=== PATIENT | female | born 1950 | race Caucasian/White ===

== ENCOUNTER 2017-08-31 08:19 | Inpatient (IN) | payer MEDICAID ==
[~2017-08-31] VITALS: Ht 157.5 cm; Wt 86.3 kg
[2017-08-31 08:24] VITALS: Ht 157.5 cm; Wt 86.3 kg
[2017-08-31] MEDS ORDERED: AZITHROMYCIN 500MG/NS (PMX) 250 ML IV STA (08:33)
[2017-08-31] MEDS ORDERED: SODIUM CHLORIDE 0.9% 1L BAG IV* STA (08:33)
[2017-08-31] MEDS ORDERED: CEFTRIAXONE 1 GM/50 ML (PMX) 50 ML IVPB STA (08:33)
[2017-08-31] MEDS ORDERED: ALBUTEROL 0.083% (NEB) 2.5 MG/3 ML AMP HHN STA ×2 (08:33→09:42)
[2017-08-31 08:38] VITALS: TEMP 98.6
[2017-08-31] MEDS ORDERED: IPRATROPIUM (NEB) 0.5 MG/2.5 ML AMP INH ONE (09:00)
[2017-08-31 09:11] LABS: BASOPHIL # 0.1 10^3/ul (0.0-0.1); BASOPHILS % 0.6 % (0.0-2.0); EOSINOPHILS # 0.1 10^3/ul (0.0-0.5); EOSINOPHILS % 0.6 % (0.0-7.0); HEMATOCRIT 35.4 % (37.0-47.0); HEMOGLOBIN 13.3 g/dl (12.0-16.0); LYMPHOCYTES # 2.6 10^3/ul (0.8-2.9); LYMPHOCYTES % 21.1 % (15.0-51.0); MEAN CORPUSCULAR HEMOGLOBIN 35.5 pg (29.0-33.0); MEAN CORPUSCULAR VOLUME 94.4 fl (82.0-101.0); MEAN PLATELET VOLUME 10.4 fl (7.4-10.4); MONOCYTE # 0.7 10^3/ul (0.3-0.9); MONOCYTES % 5.7 % (0.0-11.0); NEUTROPHIL # 8.7 10^3/ul (1.6-7.5); NEUTROPHILS % 71.7 % (39.0-77.0); PLATELET COUNT 275 10^3/UL (140-415); RED BLOOD COUNT 3.75 10^6/ul (4.20-5.40); RED CELL DISTRIBUTION WIDTH 12.3 % (11.5-14.5); WHITE BLOOD COUNT 12.1 10^3/ul (4.8-10.8)
[2017-08-31 09:28] LABS: INR 1.06; PROTIME 13.8 Sec (12.2-14.2); PT RATIO 1.1
[2017-08-31 09:29] LABS: PARTIAL THROMBOPLASTIN TIME 28.6 Sec (25.0-35.0)
--- NOTE | 2017-08-31 09:29 | RADRPT ---
PROCEDURE: XR Chest. CLINICAL INDICATION: Chest pain. TECHNIQUE: AP Portable chest. COMPARISON: No pertinent prior examinations were submitted for comparison. FINDINGS: Left subclavian dual lead pacemaker is seen. The cardiomediastinal silhouette is normal.The aortic arch is calcified. There is bilateral lower lo be subsegmental atelectasis, greater on the right. No pneumothorax is seen. The osseous structures are intact. IMPRESSION: Bilateral lower lobe subsegmental atelectasis, greater on the right. Pneumonia is not excluded. Joi elate clinically. Left-sided dual lead pacemaker. Physician Whitney Date Time Electronically viewed and signed by Physician Whitney on 08/31/2017 09:28 CS/
[2017-08-31 09:31] LABS: ANION GAP 18 (8-16); BLOOD UREA NITROGEN 17 mg/dl (7-20); CALCIUM 9.6 mg/dl (8.4-10.2); CARBON DIOXIDE 25 mmol/L (21-31); CHLORIDE 102 mmol/L (97-110); CREATININE 0.63 mg/dl (0.44-1.00); GLUCOSE 238 mg/dl (70-220); POTASSIUM 4.3 mmol/L (3.5-5.1); SODIUM 141 mmol/L (135-144)
[2017-08-31 09:41] LABS: MEAN CORPUSCULAR HGB CONC 37.6 g/dl (32.0-37.0)
[2017-08-31 09:44] LABS: TROPONIN-I < 0.012 ng/ml (0.00-0.12)
[2017-08-31] MEDS ORDERED: ACETAMINOPHEN 325 MG TAB PO PRN ×2 (10:30→13:00)
[2017-08-31] MEDS ORDERED: ONDANSETRON 4 MG INJ IV PRN ×2 (10:30→13:00)
[2017-08-31] MEDS ORDERED: AMLO-147 PO (10:52)
[2017-08-31] MEDS ORDERED: CLOP75TA27 PO (10:55)
[2017-08-31] MEDS ORDERED: FLUO10CA17 PO (10:55)
[2017-08-31] MEDS ORDERED: GLIP-95 PO (10:55)
[2017-08-31] MEDS ORDERED: ATOR40TA68 PO (10:56)
[2017-08-31] MEDS ORDERED: OMEP20CA16 PO (10:56)
[2017-08-31] MEDS ORDERED: METF500T4 PO (10:56)
[2017-08-31] MEDS ORDERED: morphine 4 MG/ML VIAL IV STA (11:09)
[2017-08-31] MEDS ORDERED: ONDANSETRON 4 MG INJ IV STA (11:09)
--- NOTE | 2017-08-31 11:11 | ERD ---
ER Documentation Chief Complaint Chief Complaint cough/congestion x 6 days HPI Patient is a 66-year-old female who presents with cough. The patient is felt sick and had cough and shortness of breath for the past 6 days. It is worsening. The patient was brought in by ambulance. She was tachycardic. She has had no treatment as of yet. ROS All systems reviewed and are negative except as per history of present illness. Medications Home Meds Reported Medications Metformin Hcl* (Metformin Hcl*) 500 Mg Tablet, 500 MG PO BID WITH MEALS, #90 TAB 08/31/17 Omeprazole* (Omeprazole*) 20 Mg Capsule.dr, 20 MG PO DAILY, #30 CAP 08/31/17 Atorvastatin* (Atorvastatin*) 40 Mg Tablet, 40 MG PO QHS, #30 TAB 08/31/17 Glipizide* (Glipizide*) 10 Mg Tablet, 10 MG PO BID, TAB 08/31/17 Clopidogrel Bisulfate (Clopidogrel) 75 Mg Tablet, 75 MG PO DAILY, #30 TAB 08/31/17 Fluoxetine Hcl* (Fluoxetine Hcl*) 10 Mg Capsule, 10 MG PO DAILY, CAP 08/31/17 Amlodipine Besylate* (Amlodipine Besylate*) 10 Mg Tablet, 10 MG PO DAILY, #30 TAB 08/31/17 Allergies Allergies: Coded Allergies: Unknown: Unable to obtain (Unverified , 09/18/11) PMhx/Soc History of Surgery: Yes (atul) Anesthesia Reaction: No Hx Neurological Disorder: No Hx Respiratory Disorders: No Hx Cardiac Disorders: Yes (HTN) Hx Psychiatric Problems: No Hx Miscellaneous Medical Probl: Yes (DM) Hx Alcohol Use: No Hx Substance Use: No Hx Tobacco Use: No Smoking Status: Never smoker FmHx Family History: No diabetes Physical Exam Vitals Vital Signs Date Time Temp Pulse Resp B/P Pulse Ox O2 Delivery O2 Flow Rate FiO2 08/31/17 10:08 113 18 97 Nasal Cannula 2.0 08/31/17 08:43 2.0 08/31/17 08:43 110 18 97 Nasal Cannula 2.0 08/31/17 08:38 98.6 107 27 145/82 98 Room Air 08/31/17 08:24 98.6 111 27 145/82 98 Physical Exam Const: Moderate distress secondary to shortness of breath Head: Atraumatic Eyes: Normal Conjunctiva ENT: Normal External Ears, Nose and Mouth. Neck: Full range of motion..~ No meningismus. Resp: Tachypnea with rhonchorous breath sounds Cardio: Tachycardic rate without murmur Abd: Soft, non tender, non distended. Normal bowel sounds Skin: No petechiae or rashes Back: No midline or flank tenderness Ext: No cyanosis, or edema Neur: Awake and alert Psych: Normal Mood and Affect Result Diagram: 08/31/17 0908/31/17 0840 Results 24 hrs Laboratory Tests Test 08/31/17 08:40 08/31/17 09:23 08/31/17 11:02 Prothrombin Time 13.8Sec Prothrombin Time Ratio 1.1 INR International Normalized Ratio 1.06 Activated Partial Thromboplast Time 28.6Sec Sodium Level 141mmol/L Potassium Level 4.3mmol/L Chloride Level 102mmol/L Carbon Dioxide Level 25mmol/L Anion Gap 18 Blood Urea Nitrogen 17mg/dl Creatinine 0.63mg/dl Glucose Level 238mg/dl Lactic Acid Level 2.3mmol/L 3.4mmol/L Calcium Level 9.6mg/dl Troponin I < 0.012ng/ml White Blood Count 12.110^3/ul Red Blood Count 3.7510^6/ul Hemoglobin 13.3g/dl Hematocrit 35.4% Mean Corpuscular Volume 94.4fl Mean Corpuscular Hemoglobin 35.5pg Mean Corpuscular Hemoglobin Concent 37.6g/dl Red Cell Distribution Width 12.3% Platelet Count 53399^3/UL Mean Platelet Volume 10.4fl Neutrophils % 71.7% Lymphocytes % 21.1% Monocytes % 5.7% Eosinophils % 0.6% Basophils % 0.6% Nucleated Red Blood Cells % 0.0/100WBC Neutrophils # 8.710^3/ul Lymphocytes # 2.610^3/ul Monocytes # 0.710^3/ul Eosinophils # 0.110^3/ul Basophils # 0.110^3/ul Nucleated Red Blood Cells # 0.010^3/ul Current Medications Medications (Trade) Dose Ordered Sig/Cassandra Route PRN Reason Start Time Stop Time Status Last Admin Dose Admin Sodium Chloride (NS) 2,540 ml BOLUS OVER 2 HOURS STAT IV* 08/31/17 08:33 08/31/17 08:34 DC 08/31/17 08:56 Albuterol (Proventil 0.083% (Neb)) 5 mg ONCE STAT HHN 08/31/17 08:33 08/31/17 08:35 DC 08/31/17 08:42 Ipratropium [place] 0.5 mg 0.5 mg ONCE ONCE INH 08/31/17 09:00 08/31/17 09:01 DC 08/31/17 08:42 Azithromycin 250 ml @ 250 mls/hr ONCE STAT IV 08/31/17 08:33 08/31/17 09:32 DC 08/31/17 09:44 Ceftriaxone Sodium (Rocephin) 50 ml @ 100 mls/hr ONCE STAT IVPB 08/31/17 08:33 08/31/17 09:02 DC 08/31/17 08:54 Albuterol (Proventil 0.083% (Neb)) 5 mg ONCE STAT HHN 08/31/17 09:42 08/31/17 09:43 DC 08/31/17 10:08 Ondansetron HCl (Zofran Inj) 4 mg BRIDGE ORDER PRN IV NAUSEA AND/OR VOMITING 08/31/17 10:30 09/01/17 10:29 Acetaminophen (Tylenol Tab) 650 mg ER BRIDGE PRN PO MILD PAIN/FEVER 08/31/17 10:30 09/01/17 10:29 Morphine Sulfate (morphine) 4 mg ONCE STAT IV 08/31/17 11:09 08/31/17 11:10 DC 08/31/17 11:13 Ondansetron HCl (Zofran Inj) 4 mg ONCE STAT IV 08/31/17 11:09 08/31/17 11:10 DC 08/31/17 11:13 Procedures/MDM EKG read by me: Rate/Rhythm: Paced rhythm at a rate of 111 Intervals: Normal Impression: Pacing with tachycardia but without ischemia Chest x-ray shows pneumonia per radiology. Admit MDM: Patient's infectious symptoms have not stabilized and the patient is at risk of rapid decompensation. The patient will be admitted for careful hydration, antibiotic therapy, and infectious source control. Severe Sepsis criteria: Infectious source: Pneumonia End organ damage indicated by: Lactate greater than 2 Sepsis Management: Time of recognition of sepsis: 8:40 AM Within 3 hours of recognition: Blood cultures x 2 before broad-spectrum antibiotics: Yes 30 ml/kg NS bolus Completed Initial lactate 2.3 Repeat lactate 3.4 Time of recognition of septic shock: No septic shock Septic Shock Assessment: Any lactic acid > 4.0 No Persistent hypotension (SBP < 90 or 40 mmHg drop, MAP < 65) despite 30 mL/kg IV fluid bolus No Volume Re-assessment for Septic Shock (post 30 ml/kg bolus): No septic shock at this time Persistent Hypotension Treatment: Comfort care No Central line Not Required Vasopressor started Not required I considered further perfusion assessment with CVP measurement, SCVO2, bedside ultrasound volume assessment, passive leg raise, trial of further fluid bolus. And proceeded with 30 ml/kg fluid bolus of NSS, broad spectrum antibiotics, and admission. Accepting Care Team Current data and ongoing care discussed. Admitting Physician: Dr. Palomo from the panel team Still Runner(s): None Outstanding Data: Culture results Critical Care: Critical care time 35 minutes excluding all billable procedures Emergent fluid management while maintaining close respiratory support. Provision of immediate and broad-spectrum antibiotic therapy. Simultaneous assessment for possible sources in order to direct targeted therapy. Consideration for invasive and chemical support to prevent cardiopulmonary collapse. Departure Diagnosis: Primary Impression: Severe sepsis Additional Impression: Pneumonia Pneumonia type: due to unspecified organism Laterality: unspecified laterality Lung location: unspecified part of lung Qualified Code: J18.9 - Pneumonia due to infectious organism, unspecified laterality, unspecified part of lung Condition: Serious ANGELIQUE WILL MD Aug 31, 2017 11:11
--- NOTE | 2017-08-31 12:18 | HP ---
Date/Time of Note Date/Time of Note DATE: 08/31/17 TIME: 12:18 Assessment/Plan VTE Prophylaxis VTE Prophylaxis Intervention: LMWH Lines/Catheters IV [facility] [place] Assessment/Plan Chief Complaint/Hosp Course 66-year-old female with a past medical history of diabetes, hypertension, hypercholesteremia, pacemaker placed, presented to the emergency room for evaluation of 9 day duration of cough, subjective fevers and generalized weakness and malaise who was noted to have pneumonia by chest x-ray. 1. Pneumonia, likely community-acquired. -Admit as inpatient. -We will start patient on IV ceftriaxone plus Zithromax along with inhaled nebulizers and cough suppressants. -Follow-up with cultures 2. Sepsis secondary to #1. Treatment as above. 3. Type 2 diabetes. -Obtain A1c. Will place patient on Accu-Cheks/insulin sliding scale/Lantus in- house. 4. Essential hypertension. -Resume home medications. 5. Hypercholesterolemia. -Resume statin. 6. Status post pacemaker. -Obtain a 2D echocardiogram to assess heart function. Prophylaxis: Lovenox/Pepcid. Rest of the management depend on hospital course. Patient was seen in collaboration with Dr. Palomo. Approximately 60 minutes was spent on this history and physical. Problems: HPI/ROS Admit Date/Time Admit Date/Time Hx of Present Illness This is a 66-year-old Maori speaking female who presented to the emergency room for evaluation of productive cough with yellow colored sputum, shortness of breath, subjective fevers and generalized weakness which has been going on since August 19. Patient also has a medical history of type 2 diabetes, hypertension, hypercholesterolemia, and pacemaker implantation 1 year ago. Patient denied any chest pain, palpitation, loss of consciousness, dizziness, edema, nausea, vomiting, abdominal pain, diarrhea, constipation or other constitutional symptoms. She also denied any recent travel or contact with sick people. Initial labs showed elevated WBC 12,100, lactic acid 2.3, and blood sugar 238. EKG with paced rhythm at a rate of 111. Chest x-ray showed possible pneumonia process. Patient was treated with sepsis protocol with IV fluid hydration and broad-spectrum IV antibiotics. Cultures were sent from the emergency room and the patient was admitted. ROS A 12 point review of system was assessed and is negative other than what is mentioned in the HPI. PMH/Family/Social Past Medical History See HPI Past Surgical History See HPI Social History Patient denied any history of alcohol, smoking or illicit drug use. Smoking Status: Never smoker Exam/Review of Systems Vital Signs Vitals Vital Signs Date Time Temp Pulse Resp B/P Pulse Ox O2 Delivery O2 Flow Rate FiO2 08/31/17 10:08 113 18 97 Nasal Cannula 2.0 08/31/17 08:38 98.6 145/82 Exam Exam General: Well developed,adequately built, obese Maori female, not in any acute distress . HEENT: Normocephalic, Atraumatic, No laceration or hematoma; Eyes: PEERL, Conjunctiva clear, Anicteric sclera Neck: Supple without any lymphadenopathy, nontender, no JVD, no carotid bruits, trachea midline, no thyromegaly Cardiac: With left chest wall pacemaker. S1, S2 auscultated, paced rhythm, no mumurs or gallop Pulmonary:Diffuse rhonchi/wheezing bilaterally.Increased work of breathing. GI: Abdomen obese to inspection. Soft, non tender, non- distended, no masses, no rebound tenderness or guarding. Bowel sounds active on all four quadrants Genitourinary: Deferred Extremities: No cyanosis, clubbing, or edema. Pulses [2+] bilaterally. Full ROM on all four extremities. No focal weakness appreciated. Neurologic: Alert to person, place, time, and situation. Affect appropriate, intact sensation. Skin: Clean,dry, and intact. No ecchymosis, no rashes, or lesions Labs Result Diagram: 08/31/17 0923 08/31/17 0840 LINDA SANTIAGO NP Aug 31, 2017 12:18 LINDA SANTIAGO NP Aug 31, 2017 12:18
[2017-08-31] MEDS ORDERED: GLUCOSE GEL 15 GRAM TUBE BUCCAL PRN (13:00)
[2017-08-31] MEDS ORDERED: GUAIFENESIN/DM 5ML CUP PO PRN (13:00)
[2017-08-31] MEDS ORDERED: ALBUTEROL/IPRATROPIUM (NEB) 3 ML AMP HHN PRN (13:00)
[2017-08-31] MEDS ORDERED: GLUCOSE GEL 15 GRAM TUBE PO PRN ×2 (13:00)
[2017-08-31] MEDS ORDERED: NACL 0.9% 3 ML SYG IV SCH (13:00)
[2017-08-31] MEDS ORDERED: GLUCAGON 1 MG INJ IM PRN (13:00)
[2017-08-31] MEDS ORDERED: DEXTROSE 50% 50 ML SYRINGE IV PRN ×2 (13:00)
[2017-08-31] MEDS ORDERED: DOCUSATE SODIUM 100 MG CAP PO PRN (13:00)
[2017-08-31] MEDS: ALBUTEROL/IPRATROPIUM (NEB) 3 ML AMP HHN SCH ×3 (13:00→20:58)
[2017-08-31] MEDS ORDERED: ACETAMINOPHEN 650 MG SUPP PR PRN (13:00)
[2017-08-31 14:53] LABS: CREATINE KINASE 56 IU/L (23-200)
[2017-08-31 15:00] VITALS: BP 137/79; PULSE 88; RESP 20
[2017-08-31 15:07] LABS: CK-MB 0.49 ng/ml (0.0-2.4)
[2017-08-31 15:09] LABS: TROPONIN-I < 0.012 ng/ml (0.00-0.12)
--- NOTE | 2017-08-31 15:50 | RADRPT ---
Echocardiogram Report Patient Name: YANNICK BURNS Gender: Female Date: 1950 Study Date: 31-Aug-2017 Dynamic Etching Processor: Adrian [facility] Location: [facility] Ref. Physician: ILNDA SANTIAGO Quality: Adequate Procedures: Transthoracic echocardiogram with complete 2D, M-Mode, and doppler examination. Indications: Shortness of breath. 2D/M Mode Doppler Measurement Value Normal Ranges Measurement Value Normal Ranges LVIDd 2D 3.5 3.5 - 5.6 cm AV Peak Darell 1.2 m/sec LVIDs 2D 2.3 2.1 - 4.1 cm AV Peak PG 6.0 mmHg FS 2D 35.3 % LVOT Peak Darell 0.6 m/sec LVPWd 2D 0.8 0.6 - 1.1 cm LVOT Peak PG 2.0 mmHg IVSd 2D 1.5 0.6 - 1.1 cm MV E Peak Darell 1.4 m/sec IVS/LVPW 2D 1.8 MV Decel Time 158 msec AoR Diam 2D 2.4 2.0 - 3.7 cm TR Peak Darell 2.9 m/sec LA/Ao 2D 2 0 - 1 TR Peak PG 33.0 mmHg EDV 2D 42.1 cm3 RVSP 41.0 mmHg ESV 2D 11.4 cm3 LA Dimen 2D 3.9 2.3 - 4.0 cm Findings Left Ventricle: Normal left ventricular systolic function. Normal left ventricular cavity size. Sigmoid septum. Ejection fraction is visually estimated at 60 %. Abnormal Diastolic Function. Right Ventricle: Normal right ventricular size. Normal right ventricular systolic function. Linear artifact in right ventricle suggestive of catheter, pacer lead, or ICD lead. Left Atrium: The left atrium is normal in size. Right Atrium: The right atrium is normal in size. Mitral Valve: Mild mitral leaflet calcification. Mild mitral annular calcification. Trace mitral regurgitation. Aortic Valve: Normal appearance of the aortic valve. No significant aortic stenosis or insufficiency. Tricuspid Valve: Normal appearance of the tricuspid valve. Estimated peak PA systolic pressure 41 mmHg. There is mild tricuspid regurgitation. Pulmonic Valve: Pulmonic valve not well visualized. There is trace pulmonic regurgitation. Pericardium: Normal pericardium with no significant pericardial effusion. Aorta: Normal aortic root. IVC: Dilated inferior vena cava with poor inspiratory collapse consistent with elevated right atrial pressures. Conclusions 1.Normal left ventricular systolic function. Normal left ventricular cavity size. Sigmoid septum. Ejection fraction is visually estimated at 60 %. Abnormal Diastolic Function. 2.Normal right ventricular size. Normal right ventricular systolic function. 3.The left atrium is normal in size. 4.The right atrium is normal in size. 5.Estimated peak PA systolic pressure 41 mmHg. There is mild tricuspid regurgitation. 6.No significant aortic stenosis or insufficiency. 7.Trace mitral regurgitation. 8.Normal pericardium with no significant pericardial effusion. Electronically Signed By: Mike Miller 31-Aug-2017 15:50:12 -0800 Patient Name: YANNICK BURNS Study Date: 31-Aug-2017 [id number]
[2017-08-31] MEDS: SOD CHLORIDE 0.9% 1,000 ML IV SCH (16:11)
[2017-08-31] MEDS: morphine 2 MG INJ IV PRN (18:49)
[2017-08-31] MEDS: IBUPROFEN 400 MG TAB PO SCH (18:50)
[2017-08-31 19:30] VITALS: BP 123/60; RESP 18
[2017-08-31] MEDS: INSULIN ASPART [NOVOLOG] 3 ML PEN SC SCH (21:00)
[2017-08-31 21:07] LABS: CREATINE KINASE 71 IU/L (23-200)
[2017-08-31 21:20] LABS: CK-MB 0.58 ng/ml (0.0-2.4); TROPONIN-I < 0.012 ng/ml (0.00-0.12)
[2017-08-31] MEDS: ATORVASTATIN 40 MG TAB PO SCH (21:36)
[2017-08-31] MEDS: BENZONATATE 100 MG CAP PO SCH (21:36)
[2017-08-31] MEDS: FAMOTIDINE 20 MG TAB PO SCH (21:36)
[2017-09-01] MEDS: ALBUTEROL/IPRATROPIUM (NEB) 3 ML AMP HHN SCH ×6 (01:56→20:30)
[2017-09-01] MEDS: ACCU-CHEK XX SCH (02:00)
[2017-09-01 02:22] VITALS: BP 83/51; RESP 20
[2017-09-01 03:46] VITALS: BP 109/61; PULSE 80
[2017-09-01] MEDS: IBUPROFEN 400 MG TAB PO SCH ×5 (06:22→23:56)
[2017-09-01 07:04] LABS: ALBUMIN 3.5 g/dl (3.3-4.9); ALBUMIN/GLOBULIN RATIO 0.97; BILIRUBIN,INDIRECT 0.4 mg/dl (0-1.1); BILIRUBIN,TOTAL 0.4 mg/dl (0.2-1.3); CALCIUM 8.7 mg/dl (8.4-10.2); CHOL/HDL RATIO 4.1 RATIO; CREATININE 0.63 mg/dl (0.44-1.00); MAGNESIUM 1.9 mg/dl (1.7-2.5); POTASSIUM 4.7 mmol/L (3.5-5.1); TOTAL PROTEIN 7.1 g/dl (6.1-8.1)
[2017-09-01 07:30] VITALS: BP 96/51; RESP 18
[2017-09-01 07:31] LABS: BASOPHIL # 0.1 10^3/ul (0.0-0.1); BASOPHILS % 0.6 % (0.0-2.0); EOSINOPHILS # 0.1 10^3/ul (0.0-0.5); EOSINOPHILS % 1.1 % (0.0-7.0); HEMATOCRIT 32.5 % (37.0-47.0); HEMOGLOBIN 10.8 g/dl (12.0-16.0); LYMPHOCYTES # 3.1 10^3/ul (0.8-2.9); LYMPHOCYTES % 32.7 % (15.0-51.0); MEAN CORPUSCULAR HEMOGLOBIN 32.5 pg (29.0-33.0); MEAN CORPUSCULAR HGB CONC 33.2 g/dl (32.0-37.0); MEAN CORPUSCULAR VOLUME 97.9 fl (82.0-101.0); MEAN PLATELET VOLUME 10.2 fl (7.4-10.4); MONOCYTE # 0.8 10^3/ul (0.3-0.9); MONOCYTES % 8.9 % (0.0-11.0); NEUTROPHIL # 5.3 10^3/ul (1.6-7.5); NEUTROPHILS % 56.4 % (39.0-77.0); PLATELET COUNT 235 10^3/UL (140-415); RED BLOOD COUNT 3.32 10^6/ul (4.20-5.40); RED CELL DISTRIBUTION WIDTH 12.8 % (11.5-14.5); WHITE BLOOD COUNT 9.3 10^3/ul (4.8-10.8)
[2017-09-01 07:56] LABS: THYROID STIMULATING HORMONE 1.49 MIU/L (0.465-4.680)
[2017-09-01] MEDS: CEFTRIAXONE 1 GM/50 ML (PMX) 50 ML IVPB SCH (08:13)
[2017-09-01] MEDS: BENZONATATE 100 MG CAP PO SCH ×3 (08:15→20:21)
[2017-09-01] MEDS: CLOPIDOGREL 75 MG TAB PO SCH (08:16)
[2017-09-01] MEDS: AMLODIPINE 10 MG TAB PO SCH ×2 (08:17→08:28)
[2017-09-01] MEDS: FLUOXETINE 10 MG CAP PO SCH (08:17)
[2017-09-01] MEDS: FAMOTIDINE 20 MG TAB PO SCH ×2 (08:17→20:21)
[2017-09-01] MEDS: INSULIN ASPART [NOVOLOG] 3 ML PEN SC SCH ×4 (08:21→21:00)
[2017-09-01] MEDS: ENOXAPARIN 40 MG/0.4 ML SYG SC SCH (08:21)
[2017-09-01] MEDS: INSULIN GLARGINE [LANtus] 3 ML PEN SC SCH (08:22)
[2017-09-01] MEDS: AZITHROMYCIN 500MG/NS (PMX) 250 ML IVPB SCH (10:10)
[2017-09-01] MEDS: SOD CHLORIDE 0.9% 1,000 ML IV SCH ×2 (11:00→18:06)
--- NOTE | 2017-09-01 11:19 | PN ---
Date/Time of Note Date/Time of Note DATE: 09/01/17 TIME: 11:16 Assessment/Plan VTE Prophylaxis VTE Prophylaxis Intervention: LMWH Lines/Catheters IV [facility]ter [facility] (from [facility]): Peripheral IV Urinary Cath still in place: No Assessment/Plan Chief Complaint/Hosp Course 66-year-old female with a past medical history of diabetes, hypertension, hypercholesteremia, pacemaker placed, presented to the emergency room for evaluation of 9 day duration of cough, subjective fevers and generalized weakness and malaise who was noted to have pneumonia by chest x-ray. 1. Pneumonia, likely community-acquired. Patient still with wheezing. -We will give 1 dose of Solu-Medrol. Will obtain CT chest. -Continue IV ceftriaxone plus Zithromax along with inhaled nebulizers and cough suppressants. -Follow-up with cultures 2. Sepsis secondary to #1. Improving. 3. Type 2 diabetes. A1c 6.8. -Continue with Accu-Cheks/insulin sliding scale/Lantus in-house. 4. Essential hypertension. -Continue home medications. 5. Hypercholesterolemia. -Continue statin. 6. Status post pacemaker. -Echocardiogram with preserved ejection fraction. 7. Mild pulmonary hypertension. Will monitor. Prophylaxis: Lovenox/Pepcid. Patient was seen in collaboration with Dr. Palomo. Problems: Subjective 24 Hr Interval Summary Free Text/Dictation Patient with continued ongoing cough. She was not given any PRN cough suppressants that was ordered. She is also having wheezing. But her work of breathing has improved from before. Exam/Review of Systems Vital Signs Vitals Vital Signs Date Time Temp Pulse Resp B/P Pulse Ox O2 Delivery O2 Flow Rate FiO2 09/01/17 09:12 100 20 96 Nasal Cannula 2.0 28 09/01/17 07:30 97.6 96/51 Intake and Output 08/31/17 08/31/17 09/01/17 15:00 23:00 07:00 Intake Total 240 ml 1150 ml Output Total 300 ml Balance 240 ml 850 ml Exam General: Well developed,adequately built, obese Amharic female, not in any acute distress . HEENT: Normocephalic, Atraumatic, No laceration or hematoma; Eyes: PEERL, Conjunctiva clear, Anicteric sclera Neck: Supple without any lymphadenopathy, nontender, no JVD, no carotid bruits, trachea midline, no thyromegaly Cardiac: With left chest wall pacemaker. S1, S2 auscultated, paced rhythm, no mumurs or gallop Pulmonary: With rhonchi/wheezing bilaterally. Normal respiratory effort. GI: Abdomen obese to inspection. Soft, non tender, non- distended, no masses, no rebound tenderness or guarding. Bowel sounds active on all four quadrants Genitourinary: Deferred Extremities: No cyanosis, clubbing, or edema. Pulses [2+] bilaterally. Full ROM on all four extremities. No focal weakness appreciated. Neurologic: Alert to person, place, time, and situation. Affect appropriate, intact sensation. Skin: Clean,dry, and intact. No ecchymosis, no rashes, or lesions Results Result Diagram: 09/01/17 0650 09/01/17 0543 Results 24 hrs Laboratory Tests Test 08/31/17 14:20 08/31/17 20:37 08/31/17 21:33 09/01/17 05:43 Lactic Acid Level 1.9 Creatine Kinase 56 71 Creatine Kinase Index 0.9 0.8 Creatinine Kinase MB (Mass) 0.49 0.58 Troponin I < 0.012 < 0.012 B-Type Natriuretic Peptide 1330 H Bedside Glucose 164 Sodium Level 143 Potassium Level 4.7 Chloride Level 106 Carbon Dioxide Level 29 Anion Gap 13 Blood Urea Nitrogen 18 Creatinine 0.63 Glucose Level 170 Hemoglobin A1c 6.8 H Calcium Level 8.7 Phosphorus Level 4.0 Magnesium Level 1.9 Total Bilirubin 0.4 Direct Bilirubin 0.00 Indirect Bilirubin 0.4 Aspartate Amino Transf (AST/SGOT) 22 Alanine Aminotransferase (ALT/SGPT) 29 Alkaline Phosphatase 58 Total Protein 7.1 Albumin 3.5 Globulin 3.60 H Albumin/Globulin Ratio 0.97 Triglycerides Level 110 Cholesterol Level 136 LDL Cholesterol, Calculated 81 HDL Cholesterol 33 L Cholesterol/HDL Ratio 4.1 Thyroid Stimulating Hormone (TSH) 1.490 Test 09/01/17 06:50 09/01/17 07:51 White Blood Count 9.3 # Red Blood Count 3.32 L Hemoglobin 10.8 L Hematocrit 32.5 L Mean Corpuscular Volume 97.9 Mean Corpuscular Hemoglobin 32.5 Mean Corpuscular Hemoglobin Concent 33.2 Red Cell Distribution Width 12.8 Platelet Count 235 Mean Platelet Volume 10.2 Neutrophils % 56.4 Lymphocytes % 32.7 Monocytes % 8.9 Eosinophils % 1.1 Basophils % 0.6 Nucleated Red Blood Cells % 0.0 Neutrophils # 5.3 Lymphocytes # 3.1 H Monocytes # 0.8 Eosinophils # 0.1 Basophils # 0.1 Nucleated Red Blood Cells # 0.0 Bedside Glucose 187 Medications Medications Current Medications Ceftriaxone Sodium 50 ml @ 100 mls/hr Q24H IVPB Last administered on 08:13; Admin Dose 100 MLS/HR; Start 09/01/17 at 08:00 Azithromycin (Zithromax 500mg/ NS (Pmx)) 250 ml @ 250 mls/hr Q24H IVPB Last administered on 09/01/17 10:10; Admin Dose 250 MLS/HR; Start 09/01/17 at 09: 00 Ondansetron HCl (Zofran Inj) 4 mg Q6H PRN IV NAUSEA AND/OR VOMITING; Start at 13:00 Acetaminophen (Tylenol Tab) 650 mg Q6H PRN PO PAIN LEVEL 1-3 OR FEVER; Start 08/31/17 at 13:00 Acetaminophen (Tylenol Supp) 650 mg Q6H PRN ME PAIN LEVEL 1-3 OR FEVER; Start 08/31/17 at 13:00 Morphine Sulfate (morphine) 2 mg Q4H PRN IV SEVERE PAIN LEVEL 7-10 Last administered on 08/31/17 18:49; Admin Dose 2 MG; Start 08/31/17 at 13:00 Docusate Sodium (Colace) 100 mg Q12H PRN PO CONSTIPATION; Start 08/31/17 at 13 :00 Famotidine (Pepcid) 20 mg Q12 PO Last administered on 09/01/17 08:17; Admin Dose 20 MG; Start 08/31/17 at 21:00 Enoxaparin Sodium (Lovenox) 40 mg DAILY SC Last administered on 09/01/17 08: 21; Admin Dose 40 MG; Start 09/01/17 at 09:00 Diagnostic Test (Pha) (Accu-Chek) 1 ea 02 XX ; Start 09/01/17 at 02:00 Insulin Glargine (Lantus) 12 unit DAILY@08 SC Last administered on 09/01/17 08:22; Admin Dose 12 UNIT; Start 09/01/17 at 08:00 Amlodipine Besylate (Norvasc) 10 mg DAILY PO Last administered on 09/01/17 08 :28; Admin Dose 10 MG; Start 09/01/17 at 09:00 Atorvastatin Calcium (Lipitor) 40 mg QHS PO Last administered on 08/31/17 21: 36; Admin Dose 40 MG; Start 08/31/17 at 21:00 Clopidogrel Bisulfate (plaVIX) 75 mg DAILY PO Last administered on 09/01/17 08:16; Admin Dose 75 MG; Start 09/01/17 at 09:00 Fluoxetine HCl (Prozac) 10 mg DAILY PO Last administered on 09/01/17 08:17; Admin Dose 10 MG; Start 09/01/17 at 09:00 Ibuprofen (Motrin) 400 mg Q6 PO Last administered on 09/01/17 06:22; Admin Dose 400 MG; Start 08/31/17 at 13:00 Benzonatate (Tessalon) 100 mg TID PO Last administered on 09/01/17 08:15; Admin Dose 100 MG; Start 08/31/17 at 13:00 Miscellaneous Information 1 ea NOTE XX ; Start 08/31/17 at 13:00 Glucose (Glutose) 15 gm Q15M PRN PO DECREASED GLUCOSE; Start 08/31/17 at 13:00 Glucose (Glutose) 22.5 gm Q15M PRN PO DECREASED GLUCOSE; Start 08/31/17 at 13: 00 Dextrose (D50w Syringe) 25 ml Q15M PRN IV DECREASED GLUCOSE; Start 08/31/17 at 13:00 Dextrose (D50w Syringe) 50 ml Q15M PRN IV DECREASED GLUCOSE; Start 08/31/17 at 13:00 Glucagon (Glucagen) 1 mg Q15M PRN IM DECREASED GLUCOSE; Start 08/31/17 at 13: 00 Glucose 15 gm 15 gm Q15M PRN BUCCAL DECREASED GLUCOSE; Start 08/31/17 at 13:00 Sodium Chloride (NS) 1,000 ml @ 50 mls/hr Q20H IV Last administered on 16:11; Admin Dose 50 MLS/HR; Start 08/31/17 at 15:00 Guaifenesin/ Dextromethorphan (Robitussin Dm Liquid Cup) 10 ml Q6H PO ; Start 09/01/17 at 13:00; Status UNV Methylprednisolone Sodium Succinate (Solu-Medrol) 125 mg ONCE ONCE IM ; Start 09/01/17 at 11:30; Stop 09/01/17 at 11:31; Status UNV LINDA SANTIAGO NP Sep 01, 2017 11:19
[2017-09-01] MEDS ORDERED: METHYLPREDNISOLONE 125 MG INJ IM ONE (11:30)
[2017-09-01] MEDS: GUAIFENESIN/DM 5ML CUP PO SCH ×2 (12:07→18:03)
[2017-09-01] MEDS ORDERED: INSULIN ASPART [NOVOLOG] 3 ML PEN SC ONE ×2 (12:30→22:00)
[2017-09-01] MEDS ORDERED: GUAIFENESIN/DM 5ML CUP PO SCH (13:00)
[2017-09-01 13:23] VITALS: BP 179/86; PULSE 80; RESP 16
[2017-09-01 17:34] VITALS: BP 142/69; PULSE 90; RESP 23
[2017-09-01 20:00] VITALS: BP 130/23; RESP 20
[2017-09-01] MEDS: ATORVASTATIN 40 MG TAB PO SCH (20:21)
--- NOTE | 2017-09-01 20:34 | RADRPT ---
PROCEDURE: CT Chest Without Contrast CLINICAL INDICATION: Pneumonia, short of breath TECHNIQUE: Volumetric acquisition of the thorax was performed without the intravenous administrati on of contrast. One or more of the following dose reduction techniques were used: - Automated exposure control. - Adjustment of the mA and/or kV according to patient size. Use of iterative reconstruction technique. Radiation Dose: CTDI = 14.83 mGy; DLP = 488.03 mGy-cm. COMPARISON: None. FINDINGS: A a pacemaker generator is implanted within the left anterior chest wall and dual leads are satisfac torily positioned. Lung french: There is air space opacification involving the right lower lobe superiorly and inferior ly with air bronchograms noted. The bronchi appear patent. Foci of discoid atelectasis are seen in e ach within the right posterior sulcus. Discoid atelectasis is seen in the right middle lobe and with in the left lower lobe. The pleural spaces: No effusion or pneumothorax is identified. Lymph nodes: There is a 3.3 cm in diameter subcarinal mass. There is a 1.2 cm in short diameter prec arinal node. Several nodes are seen in the AP window up to 8 mm in diameter. There are several pretr acheal nodes approximately 6 mm in short diameter. Cardiovascular structures: The heart is not enlarged and there is no pericardial effusion. The aorta is normal in caliber. There is coronary artery calcification and mild atherosclerotic calcification in the aorta. Thyroid: Unremarkable. Superior abdominal structures: No significant abnormality is evident. Osseous structures: Moderate diffuse anterior spurring is seen through the visualized spine. IMPRESSION: 1. Air space consolidation compatible with atelectasis and possibly infiltrate is seen within the r ight lower lobe both superiorly and inferiorly. This extends into the right hilum. Foci of discoid a telectasis are seen within the right middle lobe and the lower lobes. No effusion or pneumothorax is identified. 2. A 3.3 cm in short diameter subcarinal mass is identified, a 1.2 cm precarinal node is evident, s everal pretracheal nodes up to 6 mm in diameter are evident and AP window nodes up to 8 mm in diamet er are noted. There is suspicion of right hilar adenopathy obscured by the pulmonary consolidation. 3. The heart is normal in size with atherosclerotic calcifications seen in the coronary arteries an d aorta. A pacemaker in dual lead appear satisfactorily positioned. 4. Moderate diffuse degenerative spine changes are noted. Findings of a subcarinal mass along with mediastinal adenopathy an air space opacification involving the right lower lobe were telephoned by Min Braxton MD to Dr. Barclay on 09/01/2017 at 2027 helen rs. Physician Jv Date Time Electronically viewed and signed by Teresita Braxton Physician on 09/01/2017 20:34 RH/
[2017-09-02] MEDS: ALBUTEROL/IPRATROPIUM (NEB) 3 ML AMP HHN SCH ×6 (00:33→20:47)
[2017-09-02] MEDS: GUAIFENESIN/DM 5ML CUP PO SCH ×4 (01:10→17:24)
[2017-09-02 02:00] VITALS: BP 126/68; RESP 20
[2017-09-02] MEDS: ACCU-CHEK XX SCH (02:12)
[2017-09-02] MEDS ORDERED: INSULIN ASPART [NOVOLOG] 3 ML PEN SC ONE (02:30)
[2017-09-02] MEDS: IBUPROFEN 400 MG TAB PO SCH ×3 (06:02→17:24)
[2017-09-02 06:36] LABS: CALCIUM 9.4 mg/dl (8.4-10.2); CREATININE 0.55 mg/dl (0.44-1.00)
[2017-09-02] MEDS: SOD CHLORIDE 0.9% 1,000 ML IV SCH ×2 (06:54→18:22)
[2017-09-02 07:34] VITALS: BP 133/75; RESP 18
[2017-09-02 07:48] LABS: BASOPHILS % 0.2 % (0.0-2.0); HEMATOCRIT 32.6 % (37.0-47.0); HEMOGLOBIN 10.7 g/dl (12.0-16.0); LYMPHOCYTES # 1.2 10^3/ul (0.8-2.9); LYMPHOCYTES % 11.7 % (15.0-51.0); MEAN CORPUSCULAR HEMOGLOBIN 31.3 pg (29.0-33.0); MEAN CORPUSCULAR HGB CONC 32.8 g/dl (32.0-37.0); MEAN CORPUSCULAR VOLUME 95.3 fl (82.0-101.0); MEAN PLATELET VOLUME 11.1 fl (7.4-10.4); MONOCYTE # 0.6 10^3/ul (0.3-0.9); MONOCYTES % 5.9 % (0.0-11.0); NEUTROPHIL # 8.2 10^3/ul (1.6-7.5); NEUTROPHILS % 81.5 % (39.0-77.0); PLATELET COUNT 225 10^3/UL (140-415); RED BLOOD COUNT 3.42 10^6/ul (4.20-5.40); RED CELL DISTRIBUTION WIDTH 12.5 % (11.5-14.5)
[2017-09-02] MEDS: INSULIN GLARGINE [LANtus] 3 ML PEN SC SCH (07:54)
[2017-09-02] MEDS: INSULIN ASPART [NOVOLOG] 3 ML PEN SC SCH ×6 (07:54→20:34)
[2017-09-02] MEDS: CEFTRIAXONE 1 GM/50 ML (PMX) 50 ML IVPB SCH (09:06)
[2017-09-02] MEDS: CLOPIDOGREL 75 MG TAB PO SCH (09:10)
[2017-09-02] MEDS: FLUOXETINE 10 MG CAP PO SCH (09:11)
[2017-09-02] MEDS: BENZONATATE 100 MG CAP PO SCH ×3 (09:11→22:45)
[2017-09-02] MEDS: FAMOTIDINE 20 MG TAB PO SCH ×2 (09:11→20:29)
[2017-09-02] MEDS: AMLODIPINE 10 MG TAB PO SCH (09:12)
[2017-09-02] MEDS: ENOXAPARIN 40 MG/0.4 ML SYG SC SCH (09:24)
[2017-09-02] MEDS: AZITHROMYCIN 500MG/NS (PMX) 250 ML IVPB SCH (10:11)
--- NOTE | 2017-09-02 11:31 | PN ---
Date/Time of Note Date/Time of Note DATE: 09/02/17 TIME: 11:24 Assessment/Plan VTE Prophylaxis VTE Prophylaxis Intervention: LMWH Lines/Catheters IV [facility]ter Type (from [facility] Peripheral IV Urinary Cath still in place: No Assessment/Plan Chief Complaint/Hosp Course 66-year-old female with a past medical history of diabetes, hypertension, hypercholesteremia, pacemaker placed, presented to the emergency room for evaluation of 9 day duration of cough, subjective fevers and generalized weakness and malaise who was noted to have pneumonia by chest x-ray. 1. Pneumonia, likely community-acquired. Improving gradually. CT with suspicion of right hilar/Mediastinal adenopathy. -Pulmonary consult for further imaging recs. -Continue IV ceftriaxone plus Zithromax along with inhaled nebulizers and cough suppressants. -F/u sputum CS 2. Sepsis secondary to #1. Resolving. 3. Type 2 diabetes. A1c 6.8. Hyperglycemia with steroids given. -Continue with Accu-Cheks/insulin sliding scale/. Uptitrate insulin Lantus to 15 units and add pre-meal insulin. 4. Essential hypertension. -Continue home medications. 5. Hypercholesterolemia. -Continue statin. 6. Status post pacemaker. -Echocardiogram with preserved ejection fraction. 7. Mild pulmonary hypertension. Will monitor. Prophylaxis: Lovenox/Pepcid. F/u with pulmonary recs on CT findings. Patient was seen in collaboration with Dr. Palomo. Problems: Subjective 24 Hr Interval Summary Free Text/Dictation Today patient with less wheezing and improved work of breathing. Exam/Review of Systems Vital Signs Vitals Vital Signs Date Time Temp Pulse Resp B/P Pulse Ox O2 Delivery O2 Flow Rate FiO2 09/02/17 08:05 3.0 09/02/17 08:03 95 24 95 Nasal Cannula 32 09/02/17 07:34 98.3 133/75 Intake and Output 09/01/17 09/01/17 09/02/17 15:00 23:00 07:00 Intake Total 300 ml 950 ml 600 ml Output Total 150 ml Balance 300 ml 800 ml 600 ml Exam General: Well developed,adequately built, obese [place] female, not in any acute distress . HEENT: Normocephalic, Atraumatic, No laceration or hematoma; Eyes: PEERL, Conjunctiva clear, Anicteric sclera Neck: Supple without any lymphadenopathy, nontender, no JVD, no carotid bruits, trachea midline, no thyromegaly Cardiac: With left chest wall pacemaker. S1, S2 auscultated, paced rhythm, no mumurs or gallop Pulmonary: With rhonchi/wheezing bilaterally-improving. Normal respiratory effort. GI: Abdomen obese to inspection. Soft, non tender, non- distended, no masses, no rebound tenderness or guarding. Bowel sounds active on all four quadrants Genitourinary: Deferred Extremities: No cyanosis, clubbing, or edema. Pulses [2+] bilaterally. Full ROM on all four extremities. No focal weakness appreciated. Neurologic: Alert to person, place, time, and situation. Affect appropriate, intact sensation. Skin: Clean,dry, and intact. No ecchymosis, no rashes, or lesions Results Result Diagram: 09/02/17 0509 09/02/17 0509 Results 24 hrs Laboratory Tests Test 09/01/17 12:05 09/01/17 17:04 09/01/17 21:44 09/02/17 02:11 Bedside Glucose 193 229 H 375 H 343 H Test 09/02/17 05:09 09/02/17 07:50 White Blood Count 10.0 Red Blood Count 3.42 L Hemoglobin 10.7 L Hematocrit 32.6 L Mean Corpuscular Volume 95.3 Mean Corpuscular Hemoglobin 31.3 Mean Corpuscular Hemoglobin Concent 32.8 Red Cell Distribution Width 12.5 Platelet Count 225 Mean Platelet Volume 11.1 H Neutrophils % 81.5 H Lymphocytes % 11.7 L Monocytes % 5.9 Eosinophils % 0.0 Basophils % 0.2 Nucleated Red Blood Cells % 0.0 Neutrophils # 8.2 H Lymphocytes # 1.2 Monocytes # 0.6 Eosinophils # 0.0 Basophils # 0.0 Nucleated Red Blood Cells # 0.0 Sodium Level 139 Potassium Level 5.0 Chloride Level 105 Carbon Dioxide Level 21 Anion Gap 18 H Blood Urea Nitrogen 15 Creatinine 0.55 Glucose Level 328 #H Calcium Level 9.4 Bedside Glucose 273 H Medications Medications Current Medications Ceftriaxone Sodium 50 ml @ 100 mls/hr Q24H IVPB Last administered on t 09:06; Admin Dose 100 MLS/HR; Start 09/01/17 at 08:00 Azithromycin (Zithromax 500mg/ NS (Pmx)) 250 ml @ 250 mls/hr Q24H IVPB Last administered on 09/02/17 10:11; Admin Dose 250 MLS/HR; Start 09/01/17 at 09:00 Ondansetron HCl (Zofran Inj) 4 mg Q6H PRN IV NAUSEA AND/OR VOMITING; Start at 13:00 Acetaminophen (Tylenol Tab) 650 mg Q6H PRN PO PAIN LEVEL 1-3 OR FEVER; Start 08/31/17 at 13:00 Acetaminophen (Tylenol Supp) 650 mg Q6H PRN PA PAIN LEVEL 1-3 OR FEVER; Start 08/31/17 at 13:00 Morphine Sulfate (morphine) 2 mg Q4H PRN IV SEVERE PAIN LEVEL 7-10 Last administered on 08/31/17 18:49; Admin Dose 2 MG; Start 08/31/17 at 13:00 Docusate Sodium (Colace) 100 mg Q12H PRN PO CONSTIPATION; Start 08/31/17 at 13 :00 Famotidine (Pepcid) 20 mg Q12 PO Last administered on 09/02/17 09:11; Admin Dose 20 MG; Start 08/31/17 at 21:00 Enoxaparin Sodium (Lovenox) 40 mg DAILY SC Last administered on 09/02/17 09:24 ; Admin Dose 40 MG; Start 09/01/17 at 09:00 Diagnostic Test (Pha) (Accu-Chek) 1 ea 02 XX Last administered on 09/02/17 02: 12; Admin Dose 1 EA; Start 09/01/17 at 02:00 Insulin Glargine (Lantus) 12 unit DAILY@08 SC Last administered on 09/02/17 07 :54; Admin Dose 12 UNIT; Start 09/01/17 at 08:00 Amlodipine Besylate (Norvasc) 10 mg DAILY PO Last administered on 09/02/17 09: 12; Admin Dose 10 MG; Start 09/01/17 at 09:00 Atorvastatin Calcium (Lipitor) 40 mg QHS PO Last administered on 09/01/17 20: 21; Admin Dose 40 MG; Start 08/31/17 at 21:00 Clopidogrel Bisulfate (plaVIX) 75 mg DAILY PO Last administered on 09/02/17 09 :10; Admin Dose 75 MG; Start 09/01/17 at 09:00 Fluoxetine HCl (Prozac) 10 mg DAILY PO Last administered on 09/02/17 09:11; Admin Dose 10 MG; Start 09/01/17 at 09:00 Ibuprofen (Motrin) 400 mg Q6 PO Last administered on 09/02/17 11:08; Admin Dose 400 MG; Start 08/31/17 at 13:00 Benzonatate (Tessalon) 100 mg TID PO Last administered on 09/02/17 09:11; Admin Dose 100 MG; Start 08/31/17 at 13:00 Miscellaneous Information 1 ea NOTE XX ; Start 08/31/17 at 13:00 Glucose (Glutose) 15 gm Q15M PRN PO DECREASED GLUCOSE; Start 08/31/17 at 13:00 Glucose (Glutose) 22.5 gm Q15M PRN PO DECREASED GLUCOSE; Start 08/31/17 at 13: 00 Dextrose (D50w Syringe) 25 ml Q15M PRN IV DECREASED GLUCOSE; Start 08/31/17 at 13:00 Dextrose (D50w Syringe) 50 ml Q15M PRN IV DECREASED GLUCOSE; Start 08/31/17 at 13:00 Glucagon (Glucagen) 1 mg Q15M PRN IM DECREASED GLUCOSE; Start 08/31/17 at 13: 00 Glucose 15 gm 15 gm Q15M PRN BUCCAL DECREASED GLUCOSE; Start 08/31/17 at 13:00 Sodium Chloride (NS) 1,000 ml @ 50 mls/hr Q20H IV Last administered on 18:06; Admin Dose 50 MLS/HR; Start 08/31/17 at 15:00 Guaifenesin/ Dextromethorphan (Robitussin Dm Liquid Cup) 10 ml Q6H PO Last administered on 09/02/17 06:54; Admin Dose 10 ML; Start 09/01/17 at 13:00 LINDA SANTIAGO NP Sep 02, 2017 11:31
--- NOTE | 2017-09-02 12:32 | CONS ---
Date/Time of Note Date/Time of Note DATE: 09/02/17 TIME: 12:31 Consultation Date/Type/Reason Admit Date/Time Date of Consultation: Sep 02, 2017 Type of Consultation: Pulmonary Hx of Present Illness Pulmonary consultation dictated #[id number] Discontinue Rocephin, start cefepime 1 g every 12 hours. Start Solu-Medrol 40 mg every 8 hours. Patient will need to have a PET scan done on an outpatient basis for further evaluation of subcarinal mass. Social History Smoking Status: Never smoker Exam/Review of Systems Vital Signs Vitals Vital Signs Date Time Temp Pulse Resp B/P Pulse Ox O2 Delivery O2 Flow Rate FiO2 09/02/17 08:05 3.0 09/02/17 08:03 95 24 95 Nasal Cannula 32 09/02/17 07:34 98.3 133/75 Intake and Output 09/01/17 09/01/17 09/02/17 15:00 23:00 07:00 Intake Total 300 ml 950 ml 600 ml Output Total 150 ml Balance 300 ml 800 ml 600 ml Results Result Diagram: 09/02/17 0509 09/02/17 0509 Results 24 hrs Laboratory Tests Test 09/01/17 17:04 09/01/17 21:44 09/02/17 02:11 09/02/17 05:09 Bedside Glucose 229 H 375 H 343 H White Blood Count 10.0 Red Blood Count 3.42 L Hemoglobin 10.7 L Hematocrit 32.6 L Mean Corpuscular Volume 95.3 Mean Corpuscular Hemoglobin 31.3 Mean Corpuscular Hemoglobin Concent 32.8 Red Cell Distribution Width 12.5 Platelet Count 225 Mean Platelet Volume 11.1 H Neutrophils % 81.5 H Lymphocytes % 11.7 L Monocytes % 5.9 Eosinophils % 0.0 Basophils % 0.2 Nucleated Red Blood Cells % 0.0 Neutrophils # 8.2 H Lymphocytes # 1.2 Monocytes # 0.6 Eosinophils # 0.0 Basophils # 0.0 Nucleated Red Blood Cells # 0.0 Sodium Level 139 Potassium Level 5.0 Chloride Level 105 Carbon Dioxide Level 21 Anion Gap 18 H Blood Urea Nitrogen 15 Creatinine 0.55 Glucose Level 328 #H Calcium Level 9.4 Test 09/02/17 07:50 09/02/17 11:58 Bedside Glucose 273 H 217 Medications Medications Current Medications Ceftriaxone Sodium 50 ml @ 100 mls/hr Q24H IVPB Last administered on 09:06; Admin Dose 100 MLS/HR; Start 09/01/17 at 08:00 Azithromycin (Zithromax 500mg/ NS (Pmx)) 250 ml @ 250 mls/hr Q24H IVPB Last administered on 09/02/17 10:11; Admin Dose 250 MLS/HR; Start 09/01/17 at 09:00 Ondansetron HCl (Zofran Inj) 4 mg Q6H PRN IV NAUSEA AND/OR VOMITING; Start at 13:00 Acetaminophen (Tylenol Tab) 650 mg Q6H PRN PO PAIN LEVEL 1-3 OR FEVER; Start 08/31/17 at 13:00 Acetaminophen (Tylenol Supp) 650 mg Q6H PRN [place] PAIN LEVEL 1-3 OR FEVER; Start 08/31/17 at 13:00 Morphine Sulfate (morphine) 2 mg Q4H PRN IV SEVERE PAIN LEVEL 7-10 Last administered on 08/31/17 18:49; Admin Dose 2 MG; Start 08/31/17 at 13:00 Docusate Sodium (Colace) 100 mg Q12H PRN PO CONSTIPATION; Start 08/31/17 at 13 :00 Famotidine (Pepcid) 20 mg Q12 PO Last administered on 09/02/17 09:11; Admin Dose 20 MG; Start 08/31/17 at 21:00 Enoxaparin Sodium (Lovenox) 40 mg DAILY SC Last administered on 09/02/17 09:24 ; Admin Dose 40 MG; Start 09/01/17 at 09:00 Diagnostic Test (Pha) (Accu-Chek) 1 ea 02 XX Last administered on 09/02/17 02: 12; Admin Dose 1 EA; Start 09/01/17 at 02:00 Amlodipine Besylate (Norvasc) 10 mg DAILY PO Last administered on 09/02/17 09: 12; Admin Dose 10 MG; Start 09/01/17 at 09:00 Atorvastatin Calcium (Lipitor) 40 mg QHS PO Last administered on 09/01/17 20: 21; Admin Dose 40 MG; Start 08/31/17 at 21:00 Clopidogrel Bisulfate (plaVIX) 75 mg DAILY PO Last administered on 09/02/17 09 :10; Admin Dose 75 MG; Start 09/01/17 at 09:00 Fluoxetine HCl (Prozac) 10 mg DAILY PO Last administered on 09/02/17 09:11; Admin Dose 10 MG; Start 09/01/17 at 09:00 Ibuprofen (Motrin) 400 mg Q6 PO Last administered on 09/02/17 11:08; Admin Dose 400 MG; Start 08/31/17 at 13:00 Benzonatate (Tessalon) 100 mg TID PO Last administered on 09/02/17 09:11; Admin Dose 100 MG; Start 08/31/17 at 13:00 Miscellaneous Information 1 ea NOTE XX ; Start 08/31/17 at 13:00 Glucose (Glutose) 15 gm Q15M PRN PO DECREASED GLUCOSE; Start 08/31/17 at 13:00 Glucose (Glutose) 22.5 gm Q15M PRN PO DECREASED GLUCOSE; Start 08/31/17 at 13: 00 Dextrose (D50w Syringe) 25 ml Q15M PRN IV DECREASED GLUCOSE; Start 08/31/17 at 13:00 Dextrose (D50w Syringe) 50 ml Q15M PRN IV DECREASED GLUCOSE; Start 08/31/17 at 13:00 Glucagon (Glucagen) 1 mg Q15M PRN IM DECREASED GLUCOSE; Start 08/31/17 at 13: 00 Glucose 15 gm 15 gm Q15M PRN BUCCAL DECREASED GLUCOSE; Start 08/31/17 at 13:00 Sodium Chloride (NS) 1,000 ml @ 50 mls/hr Q20H IV Last administered on 18:06; Admin Dose 50 MLS/HR; Start 08/31/17 at 15:00 Guaifenesin/ Dextromethorphan (Robitussin Dm Liquid Cup) 10 ml Q6H PO Last administered on 09/02/17 12:11; Admin Dose 10 ML; Start 09/01/17 at 13:00 Insulin Glargine (Lantus) 15 unit DAILY@08 SC ; Start 09/03/17 at 08:00 ANGEL LUIS YOU Sep 02, 2017 12:32
--- NOTE | 2017-09-02 12:49 | CONS ---
DATE OF ADMISSION: 08/31/2017 DATE OF CONSULTATION: 09/02/2017 PULMONARY CONSULTATION REASON FOR REFERRAL: Evaluation of pneumonia and subcarinal mass. HISTORY OF PRESENT ILLNESS: Ms. Sarmiento is a very pleasant 66-year-old lady who was admitted to [facility] with a few days' history of increasing coughing, wheezing and sputum production. Upon e valuation, a chest x-ray was done which is showing infiltrate in the right upper lobe area. The [facility] also had a CT scan of the chest done which is showing a 3.6 cm subcarinal mass as well as infil trate in the right upper lobe area. The patient has been started on antibiotics, but according to h er she is still quite symptomatic with shortness of breath, wheezing, cough and chest congestion. A ccording to the patient, she was fine until a week ago when the symptoms started. PAST MEDICAL HISTORY: 1. Type 2 diabetes. 2. History of hypertension. 3. Hyperlipidemia. 4. Cardiac arrhythmia, status post pacemaker. MEDICATIONS: Include: 1. Intravenous Rocephin and Zithromax. 2. Albuterol q. 2 hours p.r.n. 3. Amlodipine 10 mg a day. 4. Atorvastatin 40 mg a day. 5. Plavix 75 mg a day. 6. Lovenox 40 mg a day. 7. Pepcid 20 mg b.i.d. 8. Prozac 10 mg a day. 9. The patient is on cough syrup. 10. Sliding scale insulin as well as Lantus insulin 12 units daily. ALLERGIES: NONE. SOCIAL HISTORY: Never smoked. No history of alcohol or drug abuse. FAMILY HISTORY: Noncontributory. OCCUPATIONAL HISTORY: Noncontributory. REVIEW OF SYSTEMS: Denies any headache, seizures, visual changes, sinus symptoms, postnasal drip, d ysphagia, odynophagia, chest pain. Complains of wheezing, shortness of breath, cough, sputum produc tion. Denies any hemoptysis. Denies any abdominal pain, nausea, vomiting, melena, hematochezia, ed leoncio, orthopnea, PND, weight loss. PHYSICAL EXAMINATION: GENERAL: Elderly woman, awake, alert, currently in no distress. VITAL SIGNS: Temperature 98.8 degrees Fahrenheit, respiratory rate is 18 per minute, heart rate 95 per minute, O2 saturation is 96% on 4 liter nasal cannula, blood pressure 133/75. HEENT: Supple neck, no JVD. NECK: No lymphadenopathy, midline trachea, no thyromegaly. SKIN: The patient has multiple carious teeth. Pupils are mid-size, reactive to light. CHEST: Bilateral expiratory wheezing. HEART: S1, S2 audible. No murmurs, regular rhythm. ABDOMEN: Soft, nontender, nondistended. Bowel sounds audible. EXTREMITIES: No edema. CENTRAL NERVOUS SYSTEM: No focal deficit. LABORATORY DATA: Sodium 139, potassium 5, chloride 105, bicarb 18, BUN 15, creatinine 0.5. White c ount 10, hemoglobin 10.7, platelet count of 225. Chest x-ray was reviewed from yesterday evening wh ich is showing right perihilar infiltrate. CT chest was also reviewed which is showing a right jorgito hilar infiltrate with 3.3 cm subcarinal mass. ASSESSMENT AND PLAN: 1. Patient admitted for bronchopneumonia with severe wheezing. 2. Incidental discovery of subcarinal mass of uncertain significance at this point. 3. History of diabetes. 4. History of cardiac arrhythmia. RECOMMENDATIONS: Discontinue Rocephin and start Cefepime 1 gram q. 12 hours. Add Solu-Medrol 40 mg q. 8 hours. The patient would need to have a PET scan done on an outpatient basis for further eval uation of the subcarinal mass in question. Meanwhile, continue current supportive care. Dictated By: ANGEL LUIS YOU MD AQ/NTS Conf#: [id number] DID#: [id number] CC: DEL JAIME MD;*EndCC*
[2017-09-02] MEDS: CEFEPIME 1GM/50 ML (PMX) 50 ML IVPB SCH ×2 (13:03→20:28)
[2017-09-02] MEDS: METHYLPREDNISOLONE 40 MG INJ IV SCH ×2 (13:58→22:46)
[2017-09-02 14:13] VITALS: BP 132/64; RESP 18
[2017-09-02 20:04] VITALS: BP 138/71; RESP 20
[2017-09-02] MEDS: ATORVASTATIN 40 MG TAB PO SCH (20:29)
[2017-09-03] MEDS: GUAIFENESIN/DM 5ML CUP PO SCH ×4 (00:24→18:09)
[2017-09-03] MEDS: IBUPROFEN 400 MG TAB PO SCH ×5 (00:26→17:18)
[2017-09-03] MEDS: ALBUTEROL/IPRATROPIUM (NEB) 3 ML AMP HHN SCH ×6 (00:45→22:07)
[2017-09-03] MEDS: ACCU-CHEK XX SCH (02:00)
[2017-09-03 02:22] VITALS: BP 143/78; RESP 20
[2017-09-03] MEDS: METHYLPREDNISOLONE 40 MG INJ IV SCH ×3 (06:19→22:03)
[2017-09-03] MEDS: SOD CHLORIDE 0.9% 1,000 ML IV SCH ×2 (06:25→22:03)
[2017-09-03 07:01] LABS: BASOPHILS % 0.1 % (0.0-2.0); HEMATOCRIT 29.8 % (37.0-47.0); HEMOGLOBIN 11.1 g/dl (12.0-16.0); LYMPHOCYTES # 1.4 10^3/ul (0.8-2.9); LYMPHOCYTES % 10.1 % (15.0-51.0); MEAN CORPUSCULAR HEMOGLOBIN 35.5 pg (29.0-33.0); MEAN CORPUSCULAR HGB CONC 37.2 g/dl (32.0-37.0); MEAN CORPUSCULAR VOLUME 95.2 fl (82.0-101.0); MONOCYTE # 0.2 10^3/ul (0.3-0.9); MONOCYTES % 1.5 % (0.0-11.0); NEUTROPHILS % 87.4 % (39.0-77.0); PLATELET COUNT 279 10^3/UL (140-415); RED BLOOD COUNT 3.13 10^6/ul (4.20-5.40); WHITE BLOOD COUNT 13.7 10^3/ul (4.8-10.8)
[2017-09-03 07:26] VITALS: BP 148/81; RESP 16
[2017-09-03 07:30] LABS: CREATININE 0.57 mg/dl (0.44-1.00); POTASSIUM 4.9 mmol/L (3.5-5.1)
[2017-09-03] MEDS ORDERED: INSULIN GLARGINE [LANtus] 3 ML PEN SC SCH (08:00)
[2017-09-03] MEDS: INSULIN ASPART [NOVOLOG] 3 ML PEN SC SCH ×7 (08:04→22:00)
[2017-09-03] MEDS: AZITHROMYCIN 500MG/NS (PMX) 250 ML IVPB SCH (08:06)
[2017-09-03] MEDS: CLOPIDOGREL 75 MG TAB PO SCH (09:04)
[2017-09-03] MEDS: BENZONATATE 100 MG CAP PO SCH ×3 (09:04→21:47)
[2017-09-03] MEDS: FLUOXETINE 10 MG CAP PO SCH (09:04)
[2017-09-03] MEDS: AMLODIPINE 10 MG TAB PO SCH (09:04)
[2017-09-03] MEDS: FAMOTIDINE 20 MG TAB PO SCH ×2 (09:04→21:48)
[2017-09-03] MEDS: ENOXAPARIN 40 MG/0.4 ML SYG SC SCH (09:15)
[2017-09-03] MEDS: CEFEPIME 1GM/50 ML (PMX) 50 ML IVPB SCH ×2 (09:56→21:47)
--- NOTE | 2017-09-03 12:20 | PN ---
Date/Time of Note Date/Time of Note DATE: 09/03/17 TIME: 12:16 Assessment/Plan VTE Prophylaxis VTE Prophylaxis Intervention: other Lines/Catheters IV Catheter Type (from [facility]): Peripheral IV Urinary Cath still in place: No Assessment/Plan Problems: (1) Pneumonia Status: Acute Comment: Patient has an infiltrate on chest x-ray which hopefully is community- acquired pneumonia. She is on him on antibiotics and his responses been mediocre. Please see pulmonary consult Qualifiers: Pneumonia type: due to unspecified organism Laterality: unspecified laterality Lung location: unspecified part of lung Qualified Code: J18.9 - Pneumonia due to infectious organism, unspecified laterality, unspecified part of lung (2) Severe sepsis Status: Resolved Comment: The sepsis syndrome is resolved with antibiotics the patient is modestly improved (3) Diabetes mellitus type 2 in obese Status: Chronic Comment: Sugars have gone up with usage of the Solu-Medrol. Use the technique of NPH insulin simultaneous with the dosing to help bring this under better control. (4) Hyperlipidemia associated with type 2 diabetes mellitus Status: Chronic Comment: Noted. Statin therapy shortly (5) Essential hypertension Status: Chronic Comment: Noted. Under control (6) Mediastinal lymphadenopathy Status: Acute Comment: Please see pulmonary consult. I am concerned that this may actually be part of what is going on here and the patient may end up actually needing either bronchoscopy or even mediastinoscopy for diagnosis (7) Diastolic dysfunction Status: Chronic Comment: Noted. (8) Obesity (BMI 30.0-34.9) Status: Chronic Comment: Noted. She is on a calorie restriction while here in the hospital (9) Cardiac pacemaker in situ Status: Chronic Comment: Noted. Subjective 24 Hr Interval Summary Free Text/Dictation [place] female sitting in bed eating lunch with complaining of feeling poorly with the inability to clear sputum Constitutional: no complaints ENT: no complaints Respiratory: cough, shortness of breath Cardiovascular: no complaints Gastrointestinal: no complaints Genitourinary: no complaints Musculoskeletal: no complaints Exam/Review of Systems Vital Signs Vitals Vital Signs Date Time Temp Pulse Resp B/P Pulse Ox O2 Delivery O2 Flow Rate FiO2 09/03/17 09:20 100 18 97 Nasal Cannula 3.0 09/03/17 07:26 98.3 148/81 09/03/17 05:48 30 Intake and Output 09/02/17 09/02/17 09/03/17 15:00 23:00 07:00 Intake Total 1070 ml 690 ml 1140 ml Balance 1070 ml 690 ml 1140 ml Exam Constitutional: alert, oriented Neck: non-tender, other (Thyroid is normal to exam), supple Respiratory: diminished breath sounds, wheezing Cardiovascular: nl pulses, regular rate and rhythm Gastrointestinal: nl liver, spleen, non-tender, soft Results Result Diagram: 09/03/17 0538 09/03/17 0538 Results 24 hrs Laboratory Tests Test 09/02/17 17:17 09/02/17 20:26 09/03/17 02:38 09/03/17 05:38 Bedside Glucose 149 250 H 279 H White Blood Count 13.7 #H Red Blood Count 3.13 L Hemoglobin 11.1 L Hematocrit 29.8 L Mean Corpuscular Volume 95.2 Mean Corpuscular Hemoglobin 35.5 H Mean Corpuscular Hemoglobin Concent 37.2 H Red Cell Distribution Width 13.0 Platelet Count 279 # Mean Platelet Volume 11.0 H Neutrophils % 87.4 H Lymphocytes % 10.1 L Monocytes % 1.5 Eosinophils % 0.0 Basophils % 0.1 Nucleated Red Blood Cells % 0.0 Neutrophils # 12.0 H Lymphocytes # 1.4 Monocytes # 0.2 L Eosinophils # 0.0 Basophils # 0.0 Nucleated Red Blood Cells # 0.0 Sodium Level 142 Potassium Level 4.9 Chloride Level 102 Carbon Dioxide Level 25 Anion Gap 20 H Blood Urea Nitrogen 17 Creatinine 0.57 Glucose Level 270 H Calcium Level 10.0 Test 09/03/17 07:59 09/03/17 12:00 Bedside Glucose 283 H 271 H Medications Medications Current Medications Azithromycin (Zithromax 500mg/ NS (Pmx)) 250 ml @ 250 mls/hr Q24H IVPB Last administered on 09/03/17t 08:06; Admin Dose 250 MLS/HR; Start 09/01/17 at 09:00 Ondansetron HCl (Zofran Inj) 4 mg Q6H PRN IV NAUSEA AND/OR VOMITING; Start at 13:00 Acetaminophen (Tylenol Tab) 650 mg Q6H PRN PO PAIN LEVEL 1-3 OR FEVER; Start 08/31/17 at 13:00 Acetaminophen (Tylenol Supp) 650 mg Q6H PRN [place] PAIN LEVEL 1-3 OR FEVER; Start 08/31/17 at 13:00 Morphine Sulfate (morphine) 2 mg Q4H PRN IV SEVERE PAIN LEVEL 7-10 Last administered on 08/31/17 18:49; Admin Dose 2 MG; Start 08/31/17 at 13:00 Docusate Sodium (Colace) 100 mg Q12H PRN PO CONSTIPATION; Start 08/31/17 at 13 :00 Famotidine (Pepcid) 20 mg Q12 PO Last administered on 09/03/17 09:04; Admin Dose 20 MG; Start 08/31/17 at 21:00 Enoxaparin Sodium (Lovenox) 40 mg DAILY SC Last administered on 09/03/17 09:15 ; Admin Dose 40 MG; Start 09/01/17 at 09:00 Diagnostic Test (Pha) (Accu-Chek) 1 ea 02 XX Last administered on 09/02/17 02: 12; Admin Dose 1 EA; Start 09/01/17 at 02:00 Amlodipine Besylate (Norvasc) 10 mg DAILY PO Last administered on 09/03/17 09: 04; Admin Dose 10 MG; Start 09/01/17 at 09:00 Atorvastatin Calcium (Lipitor) 40 mg QHS PO Last administered on 09/02/17 20: 29; Admin Dose 40 MG; Start 08/31/17 at 21:00 Clopidogrel Bisulfate (plaVIX) 75 mg DAILY PO Last administered on 09/03/17 09 :04; Admin Dose 75 MG; Start 09/01/17 at 09:00 Fluoxetine HCl (Prozac) 10 mg DAILY PO Last administered on 09/03/17 09:04; Admin Dose 10 MG; Start 09/01/17 at 09:00 Ibuprofen (Motrin) 400 mg Q6 PO Last administered on 09/03/17 12:07; Admin Dose 400 MG; Start 08/31/17 at 13:00 Benzonatate (Tessalon) 100 mg TID PO Last administered on 09/03/17 12:07; Admin Dose 100 MG; Start 08/31/17 at 13:00 Miscellaneous Information 1 ea NOTE XX ; Start 08/31/17 at 13:00 Glucose (Glutose) 15 gm Q15M PRN PO DECREASED GLUCOSE; Start 08/31/17 at 13:00 Glucose (Glutose) 22.5 gm Q15M PRN PO DECREASED GLUCOSE; Start 08/31/17 at 13: 00 Dextrose (D50w Syringe) 25 ml Q15M PRN IV DECREASED GLUCOSE; Start 08/31/17 at 13:00 Dextrose (D50w Syringe) 50 ml Q15M PRN IV DECREASED GLUCOSE; Start 08/31/17 at 13:00 Glucagon (Glucagen) 1 mg Q15M PRN IM DECREASED GLUCOSE; Start 08/31/17 at 13: 00 Glucose 15 gm 15 gm Q15M PRN BUCCAL DECREASED GLUCOSE; Start 08/31/17 at 13:00 Sodium Chloride (NS) 1,000 ml @ 50 mls/hr Q20H IV Last administered on 18:22; Admin Dose 50 MLS/HR; Start 08/31/17 at 15:00 Guaifenesin/ Dextromethorphan (Robitussin Dm Liquid Cup) 10 ml Q6H PO Last administered on 09/03/17 12:07; Admin Dose 10 ML; Start 09/01/17 at 13:00 Insulin Glargine 15 unit 15 unit DAILY@08 SC Last administered on 09/03/17 08: 04; Admin Dose 15 UNIT; Start 09/03/17 at 08:00 Cefepime HCl (Maxipime 1gm/50 ml (Pmx)) 50 ml @ 100 mls/hr Q12 IVPB Last administered on 09/03/17 09:56; Admin Dose 100 MLS/HR; Start 09/02/17 at 12:30 Methylprednisolone Sodium Succinate (Solu-Medrol) 40 mg Q8 IV Last administered on 09/03/17 06:19; Admin Dose 40 MG; Start 09/02/17 at 14:00 ELBERT GOODWIN MD Sep 03, 2017 12:20
[2017-09-03] MEDS: TIOTROPIUM 18 MCG CAPSULE INHA DEV INH SCH (13:26)
[2017-09-03] MEDS: SALMETEROL/FLUTICASONE 250/50 INHA INH SCH ×2 (13:29→21:47)
[2017-09-03] MEDS: NPH, HUMAN INSULIN ISOPHANE 3ML VIAL SC SCH ×2 (13:34→21:59)
[2017-09-03 14:00] VITALS: BP 137/78; RESP 16
--- NOTE | 2017-09-03 15:07 | CONS ---
Date/Time of Note Date/Time of Note DATE: 09/03/17 TIME: 15:04 Consult Date/Type/Reason Admit Date/Time Aug 31, 2017 at 10:28 Initial Consult Date 09/02/17 Type of Consultation: Pulmonary Subjective Still feeling poorly though not in distress. Objective Vital Signs Date Time Temp Pulse Resp B/P Pulse Ox O2 Delivery O2 Flow Rate FiO2 09/03/17 14:07 87 17 97 Nasal Cannula 3.0 09/03/17 14:00 98.7 137/78 09/03/17 05:48 30 Intake and Output 09/02/17 09/02/17 09/03/17 15:00 23:00 07:00 Intake Total 1070 ml 690 ml 1140 ml Balance 1070 ml 690 ml 1140 ml Exam HEENT: Neck supple; no JVD; no LAD CVS: RRR, S1 and S2 CHEST: Decreased BS at bases and egophony right lower lung field ABD: Soft, NT, + BS EXT: No c/c/e Results/Medications Result Diagram: 09/03/17 0538 09/03/17 0538 Results 24 hrs Laboratory Tests Test 09/02/17 17:17 09/02/17 20:26 09/03/17 02:38 09/03/17 05:38 Bedside Glucose 149 250 H 279 H White Blood Count 13.7 #H Red Blood Count 3.13 L Hemoglobin 11.1 L Hematocrit 29.8 L Mean Corpuscular Volume 95.2 Mean Corpuscular Hemoglobin 35.5 H Mean Corpuscular Hemoglobin Concent 37.2 H Red Cell Distribution Width 13.0 Platelet Count 279 # Mean Platelet Volume 11.0 H Neutrophils % 87.4 H Lymphocytes % 10.1 L Monocytes % 1.5 Eosinophils % 0.0 Basophils % 0.1 Nucleated Red Blood Cells % 0.0 Neutrophils # 12.0 H Lymphocytes # 1.4 Monocytes # 0.2 L Eosinophils # 0.0 Basophils # 0.0 Nucleated Red Blood Cells # 0.0 Sodium Level 142 Potassium Level 4.9 Chloride Level 102 Carbon Dioxide Level 25 Anion Gap 20 H Blood Urea Nitrogen 17 Creatinine 0.57 Glucose Level 270 H Calcium Level 10.0 Test 09/03/17 07:59 09/03/17 12:00 09/03/17 13:32 Bedside Glucose 283 H 271 H 231 H Medications Current Medications Azithromycin (Zithromax 500mg/ NS (Pmx)) 250 ml @ 250 mls/hr Q24H IVPB Last administered on 09/03/17 08:06; Admin Dose 250 MLS/HR; Start 09/01/17 at 09:00 Ondansetron HCl (Zofran Inj) 4 mg Q6H PRN IV NAUSEA AND/OR VOMITING; Start at 13:00 Acetaminophen (Tylenol Tab) 650 mg Q6H PRN PO PAIN LEVEL 1-3 OR FEVER; Start 08/31/17 at 13:00 Acetaminophen (Tylenol Supp) 650 mg Q6H PRN [place] PAIN LEVEL 1-3 OR FEVER; Start 08/31/17 at 13:00 Morphine Sulfate (morphine) 2 mg Q4H PRN IV SEVERE PAIN LEVEL 7-10 Last administered on 08/31/17 18:49; Admin Dose 2 MG; Start 08/31/17 at 13:00 Docusate Sodium (Colace) 100 mg Q12H PRN PO CONSTIPATION; Start 08/31/17 at 13 :00 Famotidine (Pepcid) 20 mg Q12 PO Last administered on 09/03/17 09:04; Admin Dose 20 MG; Start 08/31/17 at 21:00 Enoxaparin Sodium (Lovenox) 40 mg DAILY SC Last administered on 09/03/17 09:15 ; Admin Dose 40 MG; Start 09/01/17 at 09:00 Diagnostic Test (Pha) (Accu-Chek) 1 ea 02 XX Last administered on 09/02/17 02: 12; Admin Dose 1 EA; Start 09/01/17 at 02:00 Amlodipine Besylate (Norvasc) 10 mg DAILY PO Last administered on 09/03/17 09: 04; Admin Dose 10 MG; Start 09/01/17 at 09:00 Atorvastatin Calcium (Lipitor) 40 mg QHS PO Last administered on 09/02/17 20: 29; Admin Dose 40 MG; Start 08/31/17 at 21:00 Clopidogrel Bisulfate (plaVIX) 75 mg DAILY PO Last administered on 09/03/17 09 :04; Admin Dose 75 MG; Start 09/01/17 at 09:00 Fluoxetine HCl (Prozac) 10 mg DAILY PO Last administered on 09/03/17 09:04; Admin Dose 10 MG; Start 09/01/17 at 09:00 Ibuprofen (Motrin) 400 mg Q6 PO Last administered on 09/03/17 12:07; Admin Dose 400 MG; Start 08/31/17 at 13:00 Benzonatate (Tessalon) 100 mg TID PO Last administered on 09/03/17 12:07; Admin Dose 100 MG; Start 08/31/17 at 13:00 Miscellaneous Information 1 ea NOTE XX ; Start 08/31/17 at 13:00 Glucose (Glutose) 15 gm Q15M PRN PO DECREASED GLUCOSE; Start 08/31/17 at 13:00 Glucose (Glutose) 22.5 gm Q15M PRN PO DECREASED GLUCOSE; Start 08/31/17 at 13: 00 Dextrose (D50w Syringe) 25 ml Q15M PRN IV DECREASED GLUCOSE; Start 08/31/17 at 13:00 Dextrose (D50w Syringe) 50 ml Q15M PRN IV DECREASED GLUCOSE; Start 08/31/17 at 13:00 Glucagon (Glucagen) 1 mg Q15M PRN IM DECREASED GLUCOSE; Start 08/31/17 at 13: 00 Glucose 15 gm 15 gm Q15M PRN BUCCAL DECREASED GLUCOSE; Start 08/31/17 at 13:00 Sodium Chloride (NS) 1,000 ml @ 50 mls/hr Q20H IV Last administered on 18:22; Admin Dose 50 MLS/HR; Start 08/31/17 at 15:00 Guaifenesin/ Dextromethorphan 10 ml 10 ml Q6H PO Last administered on 12:07; Admin Dose 10 ML; Start 09/01/17 at 13:00 Cefepime HCl (Maxipime 1gm/50 ml (Pmx)) 50 ml @ 100 mls/hr Q12 IVPB Last administered on 09/03/17 09:56; Admin Dose 100 MLS/HR; Start 09/02/17 at 12:30 Methylprednisolone Sodium Succinate (Solu-Medrol) 40 mg Q8 IV Last administered on 09/03/17 13:32; Admin Dose 40 MG; Start 09/02/17 at 14:00 Insulin Glargine (Lantus) 18 unit DAILY@08 SC ; Start 09/04/17 at 08:00 Insulin Human NPH (Humulin N) 8 unit Q8 SC Last administered on 09/03/17 13:34 ; Admin Dose 8 UNIT; Start 09/03/17 at 14:00 Tiotropium [place] (Spiriva) 1 inh DAILY INH Last administered on 09/03/17 13: 26; Admin Dose 1 INH; Start 09/03/17 at 13:00 Salmeterol Xinafoate/ Fluticasone (Advair 250/50 Diskus) 1 inh BID INH Last administered on 09/03/17 13:29; Admin Dose 1 INH; Start 09/03/17 at 13:00 Assessment/Plan Additional Assessment/Plan IMP: 1. RLL CAP 2. Subcarinal Mass--well circumscribed and suggestive of a bronchogenic cyst though cannot tell without contrast. RECS: 1. Continue abx and short course CS 2. Obtain CT chest with IV contrast MARIA GUADALUPE WHITE MD Sep 03, 2017 15:07
[2017-09-03 20:00] VITALS: BP 137/78; RESP 20
[2017-09-03] MEDS: ATORVASTATIN 40 MG TAB PO SCH (21:47)
[2017-09-04] MEDS: ALBUTEROL/IPRATROPIUM (NEB) 3 ML AMP HHN SCH ×6 (00:47→20:40)
[2017-09-04] MEDS: GUAIFENESIN/DM 5ML CUP PO SCH ×4 (00:58→18:17)
[2017-09-04] MEDS: IBUPROFEN 400 MG TAB PO SCH ×4 (00:58→17:32)
[2017-09-04] MEDS: ACCU-CHEK XX SCH (02:00)
[2017-09-04 02:25] VITALS: BP 148/84; RESP 20
[2017-09-04] MEDS ORDERED: INSULIN ASPART [NOVOLOG] 3 ML PEN SC ONE (02:30)
[2017-09-04] MEDS: METHYLPREDNISOLONE 40 MG INJ IV SCH ×3 (05:40→22:09)
[2017-09-04] MEDS: NPH, HUMAN INSULIN ISOPHANE 3ML VIAL SC SCH ×3 (05:47→22:22)
[2017-09-04 07:34] VITALS: BP 137/81; RESP 16
[2017-09-04] MEDS ORDERED: INSULIN GLARGINE [LANtus] 3 ML PEN SC SCH (08:00)
[2017-09-04] MEDS: INSULIN ASPART [NOVOLOG] 3 ML PEN SC SCH ×7 (08:05→22:20)
[2017-09-04] MEDS: BENZONATATE 100 MG CAP PO SCH ×3 (08:14→22:09)
[2017-09-04] MEDS: FAMOTIDINE 20 MG TAB PO SCH ×2 (08:14→22:09)
[2017-09-04] MEDS: CEFEPIME 1GM/50 ML (PMX) 50 ML IVPB SCH ×2 (08:14→22:08)
[2017-09-04] MEDS: SALMETEROL/FLUTICASONE 250/50 INHA INH SCH ×2 (08:14→22:10)
[2017-09-04] MEDS: AMLODIPINE 10 MG TAB PO SCH (08:14)
[2017-09-04] MEDS: CLOPIDOGREL 75 MG TAB PO SCH (08:14)
[2017-09-04] MEDS: FLUOXETINE 10 MG CAP PO SCH (08:14)
[2017-09-04] MEDS: TIOTROPIUM 18 MCG CAPSULE INHA DEV INH SCH (08:15)
[2017-09-04] MEDS: ENOXAPARIN 40 MG/0.4 ML SYG SC SCH (08:24)
[2017-09-04] MEDS: AZITHROMYCIN 500MG/NS (PMX) 250 ML IVPB SCH (09:01)
[2017-09-04] MEDS: morphine 2 MG INJ IV PRN ×2 (11:38→12:27)
--- NOTE | 2017-09-04 13:03 | PN ---
Date/Time of Note Date/Time of Note DATE: 09/04/17 TIME: 13:00 Assessment/Plan VTE Prophylaxis VTE Prophylaxis Intervention: heparin Lines/Catheters [facility] IV Urinary Cath still in place: No Assessment/Plan Problems: (1) Pneumonia Status: Acute Comment: She is actually modestly improved versus yesterday although subjectively the patient does not feel better. Qualifiers: Pneumonia type: due to unspecified organism Laterality: unspecified laterality Lung location: unspecified part of lung Qualified Code: J18.9 - Pneumonia due to infectious organism, unspecified laterality, unspecified part of lung (2) Xiphoiditis Status: Acute Comment: Noted. Nonsteroidals. For still persistent she can get a trigger point injection tomorrow (3) Diabetes mellitus type 2 in obese Status: Chronic Comment: Almost adequate control. We will adjust the steroid timing NPH to get better control (4) Hyperlipidemia associated with type 2 diabetes mellitus Status: Chronic Comment: Continue with statin therapy (5) Mediastinal lymphadenopathy Status: Acute Comment: In discussion with a pulmonary consult and this may be actually a broncho-genic cyst. Will get CT scan with IV contrast to measure the Hounsfield units to tell us whether or not this needs bronchoscopy with trans- bronchial biopsy Subjective 24 Hr Interval Summary Free Text/Dictation Patient still with cough and dyspnea and wheezing. The patient reports also tenderness right at the bottom of the sternum. Constitutional: no complaints (No fevers chills or sweats) Respiratory: cough, shortness of breath, wheezing Cardiovascular: no complaints Gastrointestinal: no complaints Exam/Review of Systems Vital Signs Vitals Vital Signs Date Time Temp Pulse Resp B/P Pulse Ox O2 Delivery O2 Flow Rate FiO2 09/04/17 12:49 104 20 94 21 09/04/17 07:34 98.3 137/81 09/04/17 00:49 Nasal Cannula 2.0 Intake and Output 09/03/17 09/03/17 09/04/17 15:00 23:00 07:00 Intake Total 300 ml 1460 ml 600 ml Balance 300 ml 1460 ml 600 ml Exam Constitutional: alert, oriented Neck: non-tender, supple Respiratory: other (Reproducible chest wall tenderness at the xiphoid process) , wheezing (Please note wheezing is less) Cardiovascular: nl pulses, regular rate and rhythm Results Result Diagram: 09/03/17 0538 09/03/17 0538 Results 24 hrs Laboratory Tests Test 09/03/17 13:32 09/03/17 17:13 09/03/17 21:53 09/04/17 02:05 Bedside Glucose 231 H 208 258 H 378 H Test 09/04/17 05:43 09/04/17 07:58 09/04/17 12:11 Bedside Glucose 240 H 202 233 H Medications Medications Current Medications Azithromycin (Zithromax 500mg/ NS (Pmx)) 250 ml @ 250 mls/hr Q24H IVPB Last administered on 09/04/17 09:01; Admin Dose 250 MLS/HR; Start 09/01/17 at 09:00 Ondansetron HCl (Zofran Inj) 4 mg Q6H PRN IV NAUSEA AND/OR VOMITING; Start at 13:00 Acetaminophen (Tylenol Tab) 650 mg Q6H PRN PO PAIN LEVEL 1-3 OR FEVER; Start 08/31/17 at 13:00 Acetaminophen (Tylenol Supp) 650 mg Q6H PRN [place] PAIN LEVEL 1-3 OR FEVER; Start 08/31/17 at 13:00 Morphine Sulfate (morphine) 2 mg Q4H PRN IV SEVERE PAIN LEVEL 7-10 Last administered on 09/04/17 12:27; Admin Dose 2 MG; Start 08/31/17 at 13:00 Docusate Sodium (Colace) 100 mg Q12H PRN PO CONSTIPATION; Start 08/31/17 at 13 :00 Famotidine (Pepcid) 20 mg Q12 PO Last administered on 09/04/17 08:14; Admin Dose 20 MG; Start 08/31/17 at 21:00 Enoxaparin Sodium (Lovenox) 40 mg DAILY SC Last administered on 09/04/17 08:24 ; Admin Dose 40 MG; Start 09/01/17 at 09:00 Diagnostic Test (Pha) (Accu-Chek) 1 ea 02 XX Last administered on 09/02/17 02: 12; Admin Dose 1 EA; Start 09/01/17 at 02:00 Amlodipine Besylate (Norvasc) 10 mg DAILY PO Last administered on 09/04/17 08: 14; Admin Dose 10 MG; Start 09/01/17 at 09:00 Atorvastatin Calcium (Lipitor) 40 mg QHS PO Last administered on 09/03/17 21: 47; Admin Dose 40 MG; Start 08/31/17 at 21:00 Clopidogrel Bisulfate (plaVIX) 75 mg DAILY PO Last administered on 09/04/17 08 :14; Admin Dose 75 MG; Start 09/01/17 at 09:00 Fluoxetine HCl (Prozac) 10 mg DAILY PO Last administered on 09/04/17 08:14; Admin Dose 10 MG; Start 09/01/17 at 09:00 Ibuprofen (Motrin) 400 mg Q6 PO Last administered on 09/04/17 05:40; Admin Dose 400 MG; Start 08/31/17 at 13:00 Benzonatate (Tessalon) 100 mg TID PO Last administered on 09/04/17 12:13; Admin Dose 100 MG; Start 08/31/17 at 13:00 Miscellaneous Information 1 ea NOTE XX ; Start 08/31/17 at 13:00 Glucose (Glutose) 15 gm Q15M PRN PO DECREASED GLUCOSE; Start 08/31/17 at 13:00 Glucose (Glutose) 22.5 gm Q15M PRN PO DECREASED GLUCOSE; Start 08/31/17 at 13: 00 Dextrose (D50w Syringe) 25 ml Q15M PRN IV DECREASED GLUCOSE; Start 08/31/17 at 13:00 Dextrose (D50w Syringe) 50 ml Q15M PRN IV DECREASED GLUCOSE; Start 08/31/17 at 13:00 Glucagon (Glucagen) 1 mg Q15M PRN IM DECREASED GLUCOSE; Start 08/31/17 at 13: 00 Glucose 15 gm 15 gm Q15M PRN BUCCAL DECREASED GLUCOSE; Start 08/31/17 at 13:00 Sodium Chloride (NS) 1,000 ml @ 50 mls/hr Q20H IV Last administered on 22:03; Admin Dose 50 MLS/HR; Start 08/31/17 at 15:00 Guaifenesin/ Dextromethorphan 10 ml 10 ml Q6H PO Last administered on 12:13; Admin Dose 10 ML; Start 09/01/17 at 13:00 Cefepime HCl (Maxipime 1gm/50 ml (Pmx)) 50 ml @ 100 mls/hr Q12 IVPB Last administered on 09/04/17 08:14; Admin Dose 100 MLS/HR; Start 09/02/17 at 12:30 Methylprednisolone Sodium Succinate (Solu-Medrol) 40 mg Q8 IV Last administered on 09/04/17 05:40; Admin Dose 40 MG; Start 09/02/17 at 14:00 Tiotropium [place] (Spiriva) 1 inh DAILY INH Last administered on 09/04/17 08: 15; Admin Dose 1 INH; Start 09/03/17 at 13:00 Salmeterol Xinafoate/ Fluticasone (Advair 250/50 Diskus) 1 inh BID INH Last administered on 09/04/17 08:14; Admin Dose 1 INH; Start 09/03/17 at 13:00 Insulin Glargine (Lantus) 20 unit DAILY@08 SC ; Start 09/05/17 at 08:00; Status UNV Insulin Human NPH (Humulin N) 12 unit Q8 SC ; Start 09/04/17 at 14:00; Status UNV Acetylcysteine (Nac) 1,200 mg BID PO ; Start 09/04/17 at 21:00; Stop 09/07/17 at 20:59; Status UNV ELBERT GOODWIN MD Sep 04, 2017 13:03
--- NOTE | 2017-09-04 13:06 | CONS ---
Date/Time of Note Date/Time of Note DATE: 09/04/17 TIME: 13:04 Consult Date/Type/Reason Admit Date/Time Aug 31, 2017 at 10:28 Initial Consult Date 09/02/17 Type of Consultation: Pulmonary Subjective c/o paroxysms of cough. Objective Vital Signs Date Time Temp Pulse Resp B/P Pulse Ox O2 Delivery O2 Flow Rate FiO2 09/04/17 12:49 104 20 94 21 09/04/17 07:34 98.3 137/81 09/04/17 00:49 Nasal Cannula 2.0 Intake and Output 09/03/17 09/03/17 09/04/17 15:00 23:00 07:00 Intake Total 300 ml 1460 ml 600 ml Balance 300 ml 1460 ml 600 ml Exam HEENT: Neck supple; no JVD; no LAD CVS: RRR, S1 and S2 CHEST: Decreased BS at bases and egophony right lower lung field ABD: Soft, NT, + BS EXT: No c/c/e Results/Medications Result Diagram: 09/03/17 0538 09/03/17 0538 Results 24 hrs Laboratory Tests Test 09/03/17 13:32 09/03/17 17:13 09/03/17 21:53 09/04/17 02:05 Bedside Glucose 231 H 208 258 H 378 H Test 09/04/17 05:43 09/04/17 07:58 09/04/17 12:11 Bedside Glucose 240 H 202 233 H Medications Current Medications Azithromycin (Zithromax 500mg/ NS (Pmx)) 250 ml @ 250 mls/hr Q24H IVPB Last administered on 09/04/17 09:01; Admin Dose 250 MLS/HR; Start 09/01/17 at 09:00 Ondansetron HCl (Zofran Inj) 4 mg Q6H PRN IV NAUSEA AND/OR VOMITING; Start at 13:00 Acetaminophen (Tylenol Tab) 650 mg Q6H PRN PO PAIN LEVEL 1-3 OR FEVER; Start 08/31/17 at 13:00 Acetaminophen (Tylenol Supp) 650 mg Q6H PRN [place] PAIN LEVEL 1-3 OR FEVER; Start 08/31/17 at 13:00 Morphine Sulfate (morphine) 2 mg Q4H PRN IV SEVERE PAIN LEVEL 7-10 Last administered on 09/04/17 12:27; Admin Dose 2 MG; Start 08/31/17 at 13:00 Docusate Sodium (Colace) 100 mg Q12H PRN PO CONSTIPATION; Start 08/31/17 at 13 :00 Famotidine (Pepcid) 20 mg Q12 PO Last administered on 09/04/17 08:14; Admin Dose 20 MG; Start 08/31/17 at 21:00 Enoxaparin Sodium (Lovenox) 40 mg DAILY SC Last administered on 09/04/17 08:24 ; Admin Dose 40 MG; Start 09/01/17 at 09:00 Diagnostic Test (Pha) (Accu-Chek) 1 ea 02 XX Last administered on 09/02/17 02: 12; Admin Dose 1 EA; Start 09/01/17 at 02:00 Amlodipine Besylate (Norvasc) 10 mg DAILY PO Last administered on 09/04/17 08: 14; Admin Dose 10 MG; Start 09/01/17 at 09:00 Atorvastatin Calcium (Lipitor) 40 mg QHS PO Last administered on 09/03/17 21: 47; Admin Dose 40 MG; Start 08/31/17 at 21:00 Clopidogrel Bisulfate (plaVIX) 75 mg DAILY PO Last administered on 09/04/17 08 :14; Admin Dose 75 MG; Start 09/01/17 at 09:00 Fluoxetine HCl (Prozac) 10 mg DAILY PO Last administered on 09/04/17 08:14; Admin Dose 10 MG; Start 09/01/17 at 09:00 Ibuprofen (Motrin) 400 mg Q6 PO Last administered on 09/04/17 05:40; Admin Dose 400 MG; Start 08/31/17 at 13:00 Benzonatate (Tessalon) 100 mg TID PO Last administered on 09/04/17 12:13; Admin Dose 100 MG; Start 08/31/17 at 13:00 Miscellaneous Information 1 ea NOTE XX ; Start 08/31/17 at 13:00 Glucose (Glutose) 15 gm Q15M PRN PO DECREASED GLUCOSE; Start 08/31/17 at 13:00 Glucose (Glutose) 22.5 gm Q15M PRN PO DECREASED GLUCOSE; Start 08/31/17 at 13: 00 Dextrose (D50w Syringe) 25 ml Q15M PRN IV DECREASED GLUCOSE; Start 08/31/17 at 13:00 Dextrose (D50w Syringe) 50 ml Q15M PRN IV DECREASED GLUCOSE; Start 08/31/17 at 13:00 Glucagon (Glucagen) 1 mg Q15M PRN IM DECREASED GLUCOSE; Start 08/31/17 at 13: 00 Glucose 15 gm 15 gm Q15M PRN BUCCAL DECREASED GLUCOSE; Start 08/31/17 at 13:00 Sodium Chloride (NS) 1,000 ml @ 50 mls/hr Q20H IV Last administered on 22:03; Admin Dose 50 MLS/HR; Start 08/31/17 at 15:00 Guaifenesin/ Dextromethorphan 10 ml 10 ml Q6H PO Last administered on 12:13; Admin Dose 10 ML; Start 09/01/17 at 13:00 Cefepime HCl (Maxipime 1gm/50 ml (Pmx)) 50 ml @ 100 mls/hr Q12 IVPB Last administered on 09/04/17 08:14; Admin Dose 100 MLS/HR; Start 09/02/17 at 12:30 Methylprednisolone Sodium Succinate (Solu-Medrol) 40 mg Q8 IV Last administered on 09/04/17 05:40; Admin Dose 40 MG; Start 09/02/17 at 14:00 Tiotropium [place] (Spiriva) 1 inh DAILY INH Last administered on 09/04/17 08: 15; Admin Dose 1 INH; Start 09/03/17 at 13:00 Salmeterol Xinafoate/ Fluticasone (Advair 250/50 Diskus) 1 inh BID INH Last administered on 09/04/17 08:14; Admin Dose 1 INH; Start 09/03/17 at 13:00 Insulin Glargine (Lantus) 20 unit DAILY@08 SC ; Start 09/05/17 at 08:00; Status UNV Insulin Human NPH (Humulin N) 12 unit Q8 SC ; Start 09/04/17 at 14:00; Status UNV Acetylcysteine (Nac) 1,200 mg BID PO ; Start 09/04/17 at 21:00; Stop 09/07/17 at 20:59; Status UNV Assessment/Plan Additional Assessment/Plan IMP: 1. RLL CAP 2. Subcarinal Mass--well circumscribed and suggestive of a bronchogenic cyst though cannot tell without contrast. RECS: 1. Continue abx and short course CS 2. Obtain CT chest with IV contrast 3. If subcarinal lesion is not of low density, then a bronchoscopy with subcarinal TBNA would be diagnostic MARIA GUADALUPE WHITE MD Sep 04, 2017 13:06
[2017-09-04] MEDS ORDERED: IOHEXOL 300MG/ML 150 ML BTL ONE (13:17)
[2017-09-04] MEDS ORDERED: SOD CHLORIDE 0.9% 100 ML ONE (13:17)
[2017-09-04 14:34] VITALS: BP 134/71; RESP 18
[2017-09-04] MEDS: SOD CHLORIDE 0.9% 1,000 ML IV SCH ×2 (18:18→23:18)
[2017-09-04 19:48] VITALS: BP 154/85; RESP 18
--- NOTE | 2017-09-04 21:01 | RADRPT ---
PROCEDURE: CT Chest With Contrast CLINICAL INDICATION: Subcarinal mass with possible cyst TECHNIQUE: Volumetric acquisition of the thorax was performed following the intravenous administra tion of 90 ml of Omnipaque-300 contrast. Sagittal and coronal re-formations were subsequently recons tructed. One or more of the following dose reduction techniques were used: - Automated exposure control. - Adjustment of the mA and/or kV according to patient size. - Use of iterative reconstruction technique. Radiation Dose: CTDI = 14.40 mGy; DLP = 537.04 mGy-cm. COMPARISON: Previous noncontrast enhanced CT done 09/01/2017. FINDINGS: Lung french: There are again areas of subsegmental atelectasis and possibly streaky infiltrate withi n the right lower lobe most extensive superiorly just inferior to the major fissure. To a lesser ext ent foci of discoid atelectasis are seen in the left lower lobe. The pleural spaces: No effusion or pneumothorax is evident. Lymph nodes: A subcarinal mass is again evident which measures 4.5 x 4.4 x 3.2 cm the density measur ements range from 43 to 29 HU. This lesion abuts the left atrium and the esophagus. There is a preca rinal node measuring 1.1 cm in short diameter. Pretracheal nodes are now smaller less than 5 mm in d iameter and to the AP window nodes are on the order of 5 mm in diameter also appearing slightly smal ler. No right hilar adenopathy is identified. Cardiovascular structures: A permanent pacemaker generator is again seen to be implanted within the left anterior chest wall and dual leads appear to be satisfactorily positioned. The heart remains no rmal in size. The aorta appears intact and normal in caliber and atherosclerotic vascular calcificat ion is again noted. The central pulmonary vasculature appears patent. Thyroid: Unremarkable. Superior abdominal structures: The incompletely visualized liver is enlarged and is heterogeneously but diffusely fatty infiltrated. A small accessory spleen is seen inferior to the spleen. Osseous structures: Diffuse degenerative spine changes are again noted. IMPRESSION: 1. When compared to the previous noncontrast enhanced CT scan of the chest done 09/01/2017, there c ontinues to be an old void well-circumscribed subcarinal lesion measuring 4.5 x 4.4 x 3.2 cm with de nsity measurements ranging from 43-22 HU. There has been no appreciable enhancement of the lesion fr om the precontrast study and there is no appreciable wall. 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 A solid m ass cannot absolutely be excluded. An MRI may be helpful to further evaluate as cysts typically MRI so or hyperintense to CSF while hypointense lesions would be more suspect. 2. A 1.1 cm in short diameter precarinal node is again evident but the pretracheal and AP window no anusha no longer appear prominent and no right hilar adenopathy is identified. 3. A pacemaker and dual leads remain satisfactorily positioned and the cardiovascular structures ap pear unremarkable. 4. Subsegmental atelectasis and possibly streaky infiltrate is again seen within the right lower lo be and discoid atelectasis to a lesser extent is again seen in the left lower lobe with no pleural f luid accumulation or pneumothorax evident. 5. The visualized liver is enlarged and heterogeneously but diffusely fatty infiltrated. 6. There is a small accessory spleen seen inferior to the spleen. 7. Diffuse degenerative endplate changes are again seen to the visualized spine. Physician Jv Date Time Electronically viewed and signed by Physician Jv on 09/04/2017 21:01 /
[2017-09-04] MEDS: ATORVASTATIN 40 MG TAB PO SCH (22:08)
[2017-09-04] MEDS: ACETYLCYSTEINE 600 MG CAP PO SCH (22:08)
[2017-09-05] MEDS: ALBUTEROL/IPRATROPIUM (NEB) 3 ML AMP HHN SCH ×6 (00:54→20:05)
[2017-09-05] MEDS: GUAIFENESIN/DM 5ML CUP PO SCH ×4 (01:59→19:07)
[2017-09-05] MEDS: ACCU-CHEK XX SCH (02:03)
[2017-09-05 02:13] VITALS: BP 134/76; RESP 17
[2017-09-05] MEDS: IBUPROFEN 400 MG TAB PO SCH ×4 (06:00→17:30)
[2017-09-05] MEDS: METHYLPREDNISOLONE 40 MG INJ IV SCH ×3 (06:12→21:23)
[2017-09-05] MEDS: NPH, HUMAN INSULIN ISOPHANE 3ML VIAL SC SCH ×3 (06:19→22:03)
[2017-09-05 07:27] VITALS: BP 153/72; RESP 16
[2017-09-05] MEDS: SALMETEROL/FLUTICASONE 250/50 INHA INH SCH ×3 (08:22→21:25)
[2017-09-05] MEDS: TIOTROPIUM 18 MCG CAPSULE INHA DEV INH SCH (08:23)
[2017-09-05] MEDS: CEFEPIME 1GM/50 ML (PMX) 50 ML IVPB SCH (08:24)
[2017-09-05] MEDS: ACETYLCYSTEINE 600 MG CAP PO SCH ×2 (08:24→21:24)
[2017-09-05] MEDS: AMLODIPINE 10 MG TAB PO SCH (08:24)
[2017-09-05] MEDS: CLOPIDOGREL 75 MG TAB PO SCH (08:25)
[2017-09-05] MEDS: FAMOTIDINE 20 MG TAB PO SCH ×2 (08:25→21:24)
[2017-09-05] MEDS: BENZONATATE 100 MG CAP PO SCH ×3 (08:25→21:24)
[2017-09-05] MEDS: FLUOXETINE 10 MG CAP PO SCH (08:25)
[2017-09-05] MEDS: INSULIN GLARGINE [LANtus] 3 ML PEN SC SCH (08:30)
[2017-09-05] MEDS: INSULIN ASPART [NOVOLOG] 3 ML PEN SC SCH ×7 (08:30→21:36)
[2017-09-05] MEDS: ENOXAPARIN 40 MG/0.4 ML SYG SC SCH (08:32)
[2017-09-05] MEDS: LEVOFLOXACIN 500MG/D5W (PMX) 100 ML IVPB SCH (09:38)
[2017-09-05] MEDS: FLUCONAZOLE 100 MG TAB PO SCH (09:44)
--- NOTE | 2017-09-05 10:14 | PN ---
Date/Time of Note Date/Time of Note DATE: 09/05/17 TIME: 10:04 Assessment/Plan VTE Prophylaxis VTE Prophylaxis Intervention: LMWH Lines/Catheters IV [facility]from [facility] Peripheral IV Urinary Cath still in place: No Assessment/Plan Chief Complaint/Hosp Course 66-year-old female with a past medical history of diabetes, hypertension, hypercholesteremia, pacemaker placed, presented to the emergency room for evaluation of 9 day duration of cough, subjective fevers and generalized weakness and malaise who was noted to have pneumonia by chest x-ray. 1. Pneumonia, likely community-acquired. Improving gradually. -Sputum culture with Serratia Rubidaea/Pascale albicans. We will narrow down antibiotics to Levaquin and add fluconazole for pascale as pt is symptomatic. -On steroids per pulmonary recommendations. Will continue with CASSIDY/Cough supplements PRN. We will also add Advair to current regimen as patient still with wheezing. 2. Status post sepsis secondary to #1. 3. 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 -- We will follow-up with pulmonary recommendations.??Bronchoscopy -Consider CT surgery involvement-will discuss with pulmonary team. 4. Type 2 diabetes. A1c 6.8. Hyperglycemia with steroids given. -Continue with Accu-Cheks/insulin sliding scale/pre-meal insulin and Lantus. Patient is also on NPH to 8 as she is getting Solu-Medrol every 8 hours. NPH should be discontinued as Solu-Medrol is tapered off. 5. Essential hypertension. -Continue home medications. 6. Hypercholesterolemia. -Continue statin. 7. Status post pacemaker. -Echocardiogram with preserved ejection fraction. 8. Mild pulmonary hypertension. Will monitor. Prophylaxis: Lovenox/Pepcid. F/u with pulmonary recs on CT findings. Patient was seen in collaboration with Dr. Palomo. Problems: Subjective 24 Hr Interval Summary Free Text/Dictation Overall, patient is feeling improvement work of breathing. Cough is very minimal at this time. Exam/Review of Systems Vital Signs Vitals Vital Signs Date Time Temp Pulse Resp B/P Pulse Ox O2 Delivery O2 Flow Rate FiO2 09/05/17 08:09 101 20 96 21 09/05/17 07:27 98.6 153/72 09/04/17 00:49 Nasal Cannula 2.0 Intake and Output 09/04/17 09/04/17 09/05/17 14:59 22:59 06:59 Intake Total 300 ml 1220 ml 950 ml Balance 300 ml 1220 ml 950 ml Exam General: Well developed,adequately built, obese [place] female, not in any acute distress . HEENT: Normocephalic, Atraumatic, No laceration or hematoma; Eyes: PEERL, Conjunctiva clear, Anicteric sclera Neck: Supple without any lymphadenopathy, nontender, no JVD, no carotid bruits, trachea midline, no thyromegaly Cardiac: With left chest wall pacemaker. S1, S2 auscultated, paced rhythm, no mumurs or gallop Pulmonary: Wheezing bilaterally-improved from before. Normal respiratory effort. GI: Abdomen obese to inspection. Soft, non tender, non- distended, no masses, no rebound tenderness or guarding. Bowel sounds active on all four quadrants Genitourinary: Deferred Extremities: No cyanosis, clubbing, or edema. Pulses [2+] bilaterally. Full ROM on all four extremities. No focal weakness appreciated. Neurologic: Alert to person, place, time, and situation. Affect appropriate, intact sensation. Skin: Clean,dry, and intact. No ecchymosis, no rashes, or lesions Results Result Diagram: 09/03/17 0538 09/03/17 0538 Results 24 hrs Laboratory Tests Test 09/04/17 12:11 09/04/17 14:04 09/04/17 17:29 09/04/17 22:16 Bedside Glucose 233 H 265 H 277 H 286 H Test 09/05/17 02:01 09/05/17 06:14 09/05/17 07:59 Bedside Glucose 313 H 255 H 220 Medications Medications Current Medications Ondansetron HCl (Zofran Inj) 4 mg Q6H PRN IV NAUSEA AND/OR VOMITING; Start at 13:00 Acetaminophen (Tylenol Tab) 650 mg Q6H PRN PO PAIN LEVEL 1-3 OR FEVER; Start 08/31/17 at 13:00 Acetaminophen (Tylenol Supp) 650 mg Q6H PRN [place] PAIN LEVEL 1-3 OR FEVER; Start 08/31/17 at 13:00 Morphine Sulfate (morphine) 2 mg Q4H PRN IV SEVERE PAIN LEVEL 7-10 Last administered on 09/04/17t 12:27; Admin Dose 2 MG; Start 08/31/17 at 13:00 Docusate Sodium (Colace) 100 mg Q12H PRN PO CONSTIPATION; Start 08/31/17 at 13 :00 Famotidine (Pepcid) 20 mg Q12 PO Last administered on 09/05/17 08:25; Admin Dose 20 MG; Start 08/31/17 at 21:00 Enoxaparin Sodium (Lovenox) 40 mg DAILY SC Last administered on 09/05/17 08:32 ; Admin Dose 40 MG; Start 09/01/17 at 09:00 Diagnostic Test (Pha) (Accu-Chek) 1 ea 02 XX Last administered on 09/05/17 02: 03; Admin Dose 1 EA; Start 09/01/17 at 02:00 Amlodipine Besylate (Norvasc) 10 mg DAILY PO Last administered on 09/05/17 08: 24; Admin Dose 10 MG; Start 09/01/17 at 09:00 Atorvastatin Calcium (Lipitor) 40 mg QHS PO Last administered on 09/04/17 22: 08; Admin Dose 40 MG; Start 08/31/17 at 21:00 Clopidogrel Bisulfate (plaVIX) 75 mg DAILY PO Last administered on 09/05/17 08 :25; Admin Dose 75 MG; Start 09/01/17 at 09:00 Fluoxetine HCl (Prozac) 10 mg DAILY PO Last administered on 09/05/17 08:25; Admin Dose 10 MG; Start 09/01/17 at 09:00 Ibuprofen (Motrin) 400 mg Q6 PO Last administered on 09/04/17 05:40; Admin Dose 400 MG; Start 08/31/17 at 13:00 Benzonatate (Tessalon) 100 mg TID PO Last administered on 09/05/17 08:25; Admin Dose 100 MG; Start 08/31/17 at 13:00 Miscellaneous Information 1 ea NOTE XX ; Start 08/31/17 at 13:00 Glucose (Glutose) 15 gm Q15M PRN PO DECREASED GLUCOSE; Start 08/31/17 at 13:00 Glucose (Glutose) 22.5 gm Q15M PRN PO DECREASED GLUCOSE; Start 08/31/17 at 13: 00 Dextrose (D50w Syringe) 25 ml Q15M PRN IV DECREASED GLUCOSE; Start 08/31/17 at 13:00 Dextrose (D50w Syringe) 50 ml Q15M PRN IV DECREASED GLUCOSE; Start 08/31/17 at 13:00 Glucagon (Glucagen) 1 mg Q15M PRN IM DECREASED GLUCOSE; Start 08/31/17 at 13: 00 Glucose 15 gm 15 gm Q15M PRN BUCCAL DECREASED GLUCOSE; Start 08/31/17 at 13:00 Sodium Chloride (NS) 1,000 ml @ 50 mls/hr Q20H IV Last administered on 23:18; Admin Dose 50 MLS/HR; Start 08/31/17 at 15:00 Guaifenesin/ Dextromethorphan (Robitussin Dm Liquid Cup) 10 ml Q6H PO Last administered on 09/05/17 06:12; Admin Dose 10 ML; Start 09/01/17 at 13:00 Methylprednisolone Sodium Succinate (Solu-Medrol) 40 mg Q8 IV Last administered on 09/05/17 06:12; Admin Dose 40 MG; Start 09/02/17 at 14:00 Tiotropium [place] (Spiriva) 1 inh DAILY INH Last administered on 09/05/17 08: 23; Admin Dose 1 INH; Start 09/03/17 at 13:00 Salmeterol Xinafoate/ Fluticasone (Advair 250/50 Diskus) 1 inh BID INH Last administered on 09/05/17 08:22; Admin Dose 1 INH; Start 09/03/17 at 13:00 Insulin Glargine (Lantus) 20 unit DAILY@08 SC Last administered on 09/05/17 08 :30; Admin Dose 20 UNIT; Start 09/05/17 at 08:00 Insulin Human NPH (Humulin N) 12 unit Q8 SC Last administered on 09/05/17 06: 19; Admin Dose 12 UNIT; Start 09/04/17 at 14:00 Acetylcysteine 1200 mg 1,200 mg BID PO Last administered on 09/05/17 08:24; Admin Dose 1,200 MG; Start 09/04/17 at 21:00; Stop 09/07/17 at 20:59 Levofloxacin/ Dextrose (Levaquin 500mg/ D5W 100 ml (Pmx)) 100 ml @ 100 mls/hr Q24H IVPB Last administered on 09/05/17 09:38; Admin Dose 100 MLS/HR; Start 09/05/17 at 09:30 Fluconazole (Diflucan) 100 mg DAILY PO Last administered on 09/05/17 09:44; Admin Dose 100 MG; Start 09/05/17 at 09:30; Stop 09/12/17 at 09:29 LINDA SANTIAGO NP Sep 05, 2017 10:14
--- NOTE | 2017-09-05 12:35 | CONS ---
Date/Time of Note Date/Time of Note DATE: 09/05/17 TIME: 12:33 Consult Date/Type/Reason Admit Date/Time Aug 31, 2017 at 10:28 Initial Consult Date 09/02/17 Type of Consultation: Pulmonary Subjective Patient remains comfortable awake alert eating this morning no respiratory distress. Objective Vital Signs Date Time Temp Pulse Resp B/P Pulse Ox O2 Delivery O2 Flow Rate FiO2 09/05/17 08:09 101 20 96 21 09/05/17 07:27 98.6 153/72 09/04/17 00:49 Nasal Cannula 2.0 Intake and Output 09/04/17 09/04/17 09/05/17 14:59 22:59 06:59 Intake Total 300 ml 1220 ml 950 ml Balance 300 ml 1220 ml 950 ml Exam GENERAL: [place] lady comfortable at rest no acute distress VITAL SIGNS: per chart NECK: Supple. No JVD or lymphadenopathy. CARDIAC EXAM: S1, S2. No added sounds or murmurs. CHEST: clear bilaterally, No added sounds, rales or wheezes ABDOMEN: Soft, nontender. No guarding or rebound. EXTREMITIES: No cyanosis, clubbing or edema. NEUROLOGIC: Generalized weakness. No focal deficits. Results/Medications Result Diagram: 09/03/17 0538 09/03/17 0538 Results 24 hrs Laboratory Tests Test 09/04/17 14:04 09/04/17 17:29 09/04/17 22:16 09/05/17 02:01 Bedside Glucose 265 H 277 H 286 H 313 H Test 09/05/17 06:14 09/05/17 07:59 09/05/17 11:56 Bedside Glucose 255 H 220 226 H Medications Current Medications Ondansetron HCl (Zofran Inj) 4 mg Q6H PRN IV NAUSEA AND/OR VOMITING; Start at 13:00 Acetaminophen (Tylenol Tab) 650 mg Q6H PRN PO PAIN LEVEL 1-3 OR FEVER; Start 08/31/17 at 13:00 Acetaminophen (Tylenol Supp) 650 mg Q6H PRN [place] PAIN LEVEL 1-3 OR FEVER; Start 08/31/17 at 13:00 Morphine Sulfate (morphine) 2 mg Q4H PRN IV SEVERE PAIN LEVEL 7-10 Last administered on 09/04/17t 12:27; Admin Dose 2 MG; Start 08/31/17 at 13:00 Docusate Sodium (Colace) 100 mg Q12H PRN PO CONSTIPATION; Start 08/31/17 at 13 :00 Famotidine (Pepcid) 20 mg Q12 PO Last administered on 09/05/17 08:25; Admin Dose 20 MG; Start 08/31/17 at 21:00 Enoxaparin Sodium (Lovenox) 40 mg DAILY SC Last administered on 09/05/17 08:32 ; Admin Dose 40 MG; Start 09/01/17 at 09:00 Diagnostic Test (Pha) (Accu-Chek) 1 ea 02 XX Last administered on 09/05/17 02: 03; Admin Dose 1 EA; Start 09/01/17 at 02:00 Amlodipine Besylate (Norvasc) 10 mg DAILY PO Last administered on 09/05/17 08: 24; Admin Dose 10 MG; Start 09/01/17 at 09:00 Atorvastatin Calcium (Lipitor) 40 mg QHS PO Last administered on 09/04/17 22: 08; Admin Dose 40 MG; Start 08/31/17 at 21:00 Clopidogrel Bisulfate (plaVIX) 75 mg DAILY PO Last administered on 09/05/17 08 :25; Admin Dose 75 MG; Start 09/01/17 at 09:00 Fluoxetine HCl (Prozac) 10 mg DAILY PO Last administered on 09/05/17 08:25; Admin Dose 10 MG; Start 09/01/17 at 09:00 Ibuprofen (Motrin) 400 mg Q6 PO Last administered on 09/04/17 05:40; Admin Dose 400 MG; Start 08/31/17 at 13:00 Benzonatate (Tessalon) 100 mg TID PO Last administered on 09/05/17 08:25; Admin Dose 100 MG; Start 08/31/17 at 13:00 Miscellaneous Information 1 ea NOTE XX ; Start 08/31/17 at 13:00 Glucose (Glutose) 15 gm Q15M PRN PO DECREASED GLUCOSE; Start 08/31/17 at 13:00 Glucose (Glutose) 22.5 gm Q15M PRN PO DECREASED GLUCOSE; Start 08/31/17 at 13: 00 Dextrose (D50w Syringe) 25 ml Q15M PRN IV DECREASED GLUCOSE; Start 08/31/17 at 13:00 Dextrose (D50w Syringe) 50 ml Q15M PRN IV DECREASED GLUCOSE; Start 08/31/17 at 13:00 Glucagon (Glucagen) 1 mg Q15M PRN IM DECREASED GLUCOSE; Start 08/31/17 at 13: 00 Glucose 15 gm 15 gm Q15M PRN BUCCAL DECREASED GLUCOSE; Start 08/31/17 at 13:00 Sodium Chloride (NS) 1,000 ml @ 50 mls/hr Q20H IV Last administered on 23:18; Admin Dose 50 MLS/HR; Start 08/31/17 at 15:00 Guaifenesin/ Dextromethorphan (Robitussin Dm Liquid Cup) 10 ml Q6H PO Last administered on 09/05/17 06:12; Admin Dose 10 ML; Start 09/01/17 at 13:00 Methylprednisolone Sodium Succinate (Solu-Medrol) 40 mg Q8 IV Last administered on 09/05/17 06:12; Admin Dose 40 MG; Start 09/02/17 at 14:00 Tiotropium [place] (Spiriva) 1 inh DAILY INH Last administered on 09/05/17 08: 23; Admin Dose 1 INH; Start 09/03/17 at 13:00 Insulin Glargine (Lantus) 20 unit DAILY@08 SC Last administered on 09/05/17 08 :30; Admin Dose 20 UNIT; Start 09/05/17 at 08:00 Insulin Human NPH (Humulin N) 12 unit Q8 SC Last administered on 09/05/17 06: 19; Admin Dose 12 UNIT; Start 09/04/17 at 14:00 Acetylcysteine 1200 mg 1,200 mg BID PO Last administered on 09/05/17 08:24; Admin Dose 1,200 MG; Start 09/04/17 at 21:00; Stop 09/07/17 at 20:59 Levofloxacin/ Dextrose (Levaquin 500mg/ D5W 100 ml (Pmx)) 100 ml @ 100 mls/hr Q24H IVPB Last administered on 09/05/17 09:38; Admin Dose 100 MLS/HR; Start 09/05/17 at 09:30 Fluconazole (Diflucan) 100 mg DAILY PO Last administered on 09/05/17 09:44; Admin Dose 100 MG; Start 12/4/17 at 09:30; Stop 09/12/17 at 09:29 Salmeterol Xinafoate/ Fluticasone (Advair 250/50 Diskus) 1 inh BID INH ; Start 09/05/17 at 10:30 Assessment/Plan Chief Complaint/Hosp Course IMP: 1. RLL CAP 2. Subcarinal Mass--CT chest with contrast noted. Suggest MRI. RECS: 1. Continue abx and short course CS 2. MRI requested. We will need cardiothoracic surgery consult. Dr Rendon contacted. Problems: LI CAMACHO MD[facility] Sep 05, 2017 12:35
[2017-09-05 14:47] VITALS: BP 136/74; RESP 18
[2017-09-05] MEDS: SOD CHLORIDE 0.9% 1,000 ML IV SCH (16:20)
[2017-09-05 19:55] VITALS: BP 132/72; RESP 16
[2017-09-05] MEDS: ATORVASTATIN 40 MG TAB PO SCH (21:24)
[2017-09-06] MEDS: GUAIFENESIN/DM 5ML CUP PO SCH ×4 (00:25→18:02)
[2017-09-06] MEDS ORDERED: ZOLPIDEM 5 MG TAB PO PRN (00:30)
[2017-09-06] MEDS: ALBUTEROL/IPRATROPIUM (NEB) 3 ML AMP HHN SCH ×6 (01:00→20:00)
[2017-09-06 02:00] VITALS: BP 138/80; RESP 16
[2017-09-06] MEDS: ACCU-CHEK XX SCH (02:00)
[2017-09-06] MEDS: IBUPROFEN 400 MG TAB PO SCH ×4 (06:00→17:19)
[2017-09-06 06:27] LABS: CALCIUM 9.7 mg/dl (8.4-10.2); CREATININE 0.62 mg/dl (0.44-1.00); MAGNESIUM 1.9 mg/dl (1.7-2.5); POTASSIUM 4.1 mmol/L (3.5-5.1)
[2017-09-06] MEDS: METHYLPREDNISOLONE 40 MG INJ IV SCH ×2 (06:28→21:23)
[2017-09-06] MEDS: NPH, HUMAN INSULIN ISOPHANE 3ML VIAL SC SCH ×2 (06:34→21:28)
[2017-09-06] MEDS ORDERED: ALBUTEROL 0.083% (NEB) 2.5 MG/3 ML AMP ONE (07:00)
[2017-09-06 07:13] LABS: BASOPHILS % 0.2 % (0.0-2.0); HEMATOCRIT 37.6 % (37.0-47.0); HEMOGLOBIN 13.3 g/dl (12.0-16.0); LYMPHOCYTES # 1.9 10^3/ul (0.8-2.9); LYMPHOCYTES % 13.4 % (15.0-51.0); MEAN CORPUSCULAR HEMOGLOBIN 31.7 pg (29.0-33.0); MEAN CORPUSCULAR HGB CONC 35.4 g/dl (32.0-37.0); MEAN CORPUSCULAR VOLUME 89.7 fl (82.0-101.0); MEAN PLATELET VOLUME 10.7 fl (7.4-10.4); MONOCYTE # 0.7 10^3/ul (0.3-0.9); MONOCYTES % 4.7 % (0.0-11.0); NEUTROPHIL # 11.2 10^3/ul (1.6-7.5); NEUTROPHILS % 80.2 % (39.0-77.0); PLATELET COUNT 327 10^3/UL (140-415); RED BLOOD COUNT 4.19 10^6/ul (4.20-5.40); RED CELL DISTRIBUTION WIDTH 12.3 % (11.5-14.5)
[2017-09-06 07:47] VITALS: BP 143/72; RESP 18
[2017-09-06] MEDS: INSULIN ASPART [NOVOLOG] 3 ML PEN SC SCH ×7 (08:28→21:00)
[2017-09-06] MEDS: INSULIN GLARGINE [LANtus] 3 ML PEN SC SCH (08:29)
[2017-09-06] MEDS: SALMETEROL/FLUTICASONE 250/50 INHA INH SCH ×3 (09:00→21:23)
[2017-09-06] MEDS: TIOTROPIUM 18 MCG CAPSULE INHA DEV INH SCH (09:00)
[2017-09-06] MEDS: ACETYLCYSTEINE 600 MG CAP PO SCH ×2 (10:05→21:22)
[2017-09-06] MEDS: BENZONATATE 100 MG CAP PO SCH ×3 (10:05→21:22)
[2017-09-06] MEDS: CLOPIDOGREL 75 MG TAB PO SCH (10:06)
[2017-09-06] MEDS: FAMOTIDINE 20 MG TAB PO SCH ×2 (10:08→21:22)
[2017-09-06] MEDS: AMLODIPINE 10 MG TAB PO SCH (10:09)
[2017-09-06] MEDS: FLUOXETINE 10 MG CAP PO SCH (10:09)
[2017-09-06] MEDS: LEVOFLOXACIN 500MG/D5W (PMX) 100 ML IVPB SCH (10:12)
[2017-09-06] MEDS: ENOXAPARIN 40 MG/0.4 ML SYG SC SCH (10:38)
--- NOTE | 2017-09-06 11:05 | CONS ---
Date/Time of Note Date/Time of Note DATE: 09/06/17 TIME: 11:04 Consult Date/Type/Reason Admit Date/Time Aug 31, 2017 at 10:28 Initial Consult Date 09/02/17 Type of Consultation: Pulmonary Subjective Patient stable this morning. Awake alert and oriented. Objective Vital Signs Date Time Temp Pulse Resp B/P Pulse Ox O2 Delivery O2 Flow Rate FiO2 09/06/17 07:47 97.9 84 18 143/72 97 09/05/17 20:06 21 09/04/17 00:49 Nasal Cannula 2.0 Intake and Output 09/05/17 09/05/17 09/06/17 15:00 23:00 07:00 Intake Total 100 ml 1270 ml 1070 ml Balance 100 ml 1270 ml 1070 ml Exam GENERAL: Chinese lady comfortable at rest no acute distress VITAL SIGNS: per chart NECK: Supple. No JVD or lymphadenopathy. CARDIAC EXAM: S1, S2. No added sounds or murmurs. CHEST: clear bilaterally, No added sounds, rales or wheezes ABDOMEN: Soft, nontender. No guarding or rebound. EXTREMITIES: No cyanosis, clubbing or edema. NEUROLOGIC: Generalized weakness. Left facial droop. Results/Medications Result Diagram: 09/06/17 0520 09/06/17 0520 Results 24 hrs Laboratory Tests Test 09/05/17 11:56 09/05/17 17:21 09/05/17 21:28 09/06/17 05:20 Bedside Glucose 226 H 215 295 H White Blood Count 14.0 H Red Blood Count 4.19 #L Hemoglobin 13.3 Hematocrit 37.6 # Mean Corpuscular Volume 89.7 Mean Corpuscular Hemoglobin 31.7 Mean Corpuscular Hemoglobin Concent 35.4 Red Cell Distribution Width 12.3 Platelet Count 327 Mean Platelet Volume 10.7 H Neutrophils % 80.2 H Lymphocytes % 13.4 L Monocytes % 4.7 Eosinophils % 0.0 Basophils % 0.2 Nucleated Red Blood Cells % 0.0 Neutrophils # 11.2 H Lymphocytes # 1.9 Monocytes # 0.7 Eosinophils # 0.0 Basophils # 0.0 Nucleated Red Blood Cells # 0.0 Sodium Level 140 Potassium Level 4.1 Chloride Level 102 Carbon Dioxide Level 27 Anion Gap 15 Blood Urea Nitrogen 27 H Creatinine 0.62 Glucose Level 220 Calcium Level 9.7 Magnesium Level 1.9 Test 09/06/17 06:27 09/06/17 08:10 Bedside Glucose 199 189 Medications Current Medications Ondansetron HCl (Zofran Inj) 4 mg Q6H PRN IV NAUSEA AND/OR VOMITING; Start at 13:00 Acetaminophen (Tylenol Tab) 650 mg Q6H PRN PO PAIN LEVEL 1-3 OR FEVER; Start 08/31/17 at 13:00 Acetaminophen (Tylenol Supp) 650 mg Q6H PRN [place] PAIN LEVEL 1-3 OR FEVER; Start 08/31/17 at 13:00 Morphine Sulfate (morphine) 2 mg Q4H PRN IV SEVERE PAIN LEVEL 7-10 Last administered on 09/04/17 12:27; Admin Dose 2 MG; Start 08/31/17 at 13:00 Docusate Sodium (Colace) 100 mg Q12H PRN PO CONSTIPATION; Start 08/31/17 at 13 :00 Famotidine (Pepcid) 20 mg Q12 PO Last administered on 09/06/17 10:08; Admin Dose 20 MG; Start 08/31/17 at 21:00 Enoxaparin Sodium (Lovenox) 40 mg DAILY SC Last administered on 09/06/17 10:38 ; Admin Dose 40 MG; Start 09/01/17 at 09:00 Diagnostic Test (Pha) (Accu-Chek) 1 ea 02 XX Last administered on 09/05/17 02: 03; Admin Dose 1 EA; Start 09/01/17 at 02:00 Amlodipine Besylate (Norvasc) 10 mg DAILY PO Last administered on 09/06/17 10: 09; Admin Dose 10 MG; Start 09/01/17 at 09:00 Atorvastatin Calcium (Lipitor) 40 mg QHS PO Last administered on 09/05/17 21: 24; Admin Dose 40 MG; Start 08/31/17 at 21:00 Clopidogrel Bisulfate (plaVIX) 75 mg DAILY PO Last administered on 09/06/17 10 :06; Admin Dose 75 MG; Start 09/01/17 at 09:00 Fluoxetine HCl (Prozac) 10 mg DAILY PO Last administered on 09/06/17 10:09; Admin Dose 10 MG; Start 09/01/17 at 09:00 Ibuprofen (Motrin) 400 mg Q6 PO Last administered on 09/04/17 05:40; Admin Dose 400 MG; Start 08/31/17 at 13:00 Benzonatate (Tessalon) 100 mg TID PO Last administered on 09/06/17 10:05; Admin Dose 100 MG; Start 08/31/17 at 13:00 Miscellaneous Information 1 ea NOTE XX ; Start 08/31/17 at 13:00 Glucose (Glutose) 15 gm Q15M PRN PO DECREASED GLUCOSE; Start 08/31/17 at 13:00 Glucose (Glutose) 22.5 gm Q15M PRN PO DECREASED GLUCOSE; Start 08/31/17 at 13: 00 Dextrose (D50w Syringe) 25 ml Q15M PRN IV DECREASED GLUCOSE; Start 08/31/17 at 13:00 Dextrose (D50w Syringe) 50 ml Q15M PRN IV DECREASED GLUCOSE; Start 08/31/17 at 13:00 Glucagon (Glucagen) 1 mg Q15M PRN IM DECREASED GLUCOSE; Start 08/31/17 at 13: 00 Glucose 15 gm 15 gm Q15M PRN BUCCAL DECREASED GLUCOSE; Start 08/31/17 at 13:00 Sodium Chloride (NS) 1,000 ml @ 50 mls/hr Q20H IV Last administered on 16:20; Admin Dose 50 MLS/HR; Start 08/31/17 at 15:00 Guaifenesin/ Dextromethorphan (Robitussin Dm Liquid Cup) 10 ml Q6H PO Last administered on 09/06/17 06:56; Admin Dose 10 ML; Start 09/01/17 at 13:00 Methylprednisolone Sodium Succinate (Solu-Medrol) 40 mg Q8 IV Last administered on 09/06/17 06:28; Admin Dose 40 MG; Start 09/02/17 at 14:00 Tiotropium [place] (Spiriva) 1 inh DAILY INH Last administered on 09/05/17 08: 23; Admin Dose 1 INH; Start 09/03/17 at 13:00 Insulin Glargine (Lantus) 20 unit DAILY@08 SC Last administered on 09/06/17 08 :29; Admin Dose 20 UNIT; Start 09/05/17 at 08:00 Insulin Human NPH (Humulin N) 12 unit Q8 SC Last administered on 09/06/17 06: 34; Admin Dose 12 UNIT; Start 09/04/17 at 14:00 Acetylcysteine 1200 mg 1,200 mg BID PO Last administered on 09/06/17 10:05; Admin Dose 1,200 MG; Start 09/04/17 at 21:00; Stop 09/07/17 at 20:59 Levofloxacin/ Dextrose (Levaquin 500mg/ D5W 100 ml (Pmx)) 100 ml @ 100 mls/hr Q24H IVPB Last administered on 09/06/17 10:12; Admin Dose 100 MLS/HR; Start 09/05/17 at 09:30 Fluconazole (Diflucan) 100 mg DAILY PO Last administered on 09/05/17 09:44; Admin Dose 100 MG; Start 09/05/17 at 09:30; Stop 09/12/17 at 09:29 Salmeterol Xinafoate/ Fluticasone (Advair 250/50 Diskus) 1 inh BID INH Last administered on 09/05/17 21:25; Admin Dose 1 INH; Start 09/05/17 at 10:30 Assessment/Plan Chief Complaint/Hosp Course IMP: 1. RLL CAP 2. 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 History of pacemaker placement 4. History of CVA RECS: 1. Continue abx and short course CS 2. MRI requested. We will need cardiothoracic surgery consult. Dr Rendon contacted. 3. Pulmonary function testing discussed with patient she may defer surgery for now. Problems: LI CAMACHO MD, [facility] Sep 06, 2017 11:05
--- NOTE | 2017-09-06 11:15 | PN ---
Date/Time of Note Date/Time of Note DATE: 09/06/17 TIME: 11:10 Assessment/Plan VTE Prophylaxis VTE Prophylaxis Intervention: LMWH Lines/Catheters IV Catheter Type (from [facility]): Peripheral IV Urinary Cath still in place: No Assessment/Plan Chief Complaint/Hosp Course 66-year-old female with a past medical history of diabetes, hypertension, hypercholesteremia, pacemaker placed, presented to the emergency room for evaluation of 9 day duration of cough, subjective fevers and generalized weakness and malaise who was noted to have pneumonia by chest x-ray. 1. Pneumonia, likely community-acquired. Clinically improved.Sputum culture with Serratia Rubidaea/Pascale albicans. Status: Acute -Continue Levaquin Levaquin and short course fluconazole for pascale as pt is symptomatic. -We will start tapering steroids as per pulmonary recommendation. -Continue with CASSIDY/ICH/Cough supplements PRN. 2. Status post sepsis secondary to #1. 3. 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 Unable to do an MRI evaluation secondary to pacemaker placed. --Pulmonary evaluation appreciated and CT surgery consult has been requested from pulmonary. We will follow-up with recommendations. -At this time, what it seems like patient is not opting for any aggressive management on this. However, we will have it discussed with our CT surgery team. 4. Type 2 diabetes. A1c 6.8. Hyperglycemia with steroids given. -Continue with Accu-Cheks/insulin sliding scale/pre-meal insulin and Lantus. Patient is also on NPH with Solu-Medrol. NPH should be discontinued as Solu- Medrol is tapered off. 5. Essential hypertension. -Continue home medications. 6. Hypercholesterolemia. -Continue statin. 7. Status post pacemaker. -Echocardiogram with preserved ejection fraction. 8. Mild pulmonary hypertension. Will monitor. Prophylaxis: Lovenox/Pepcid. Follow-up with CT recommendations. If no further intervention required, and patient can be monitored as outpatient, discharge planning in next 24-48 hours. Patient was seen in collaboration with Dr. Palomo. Problems: Subjective 24 Hr Interval Summary Free Text/Dictation Overall, patient with gradual improvement in symptoms. She is with less wheezing. No further shortness of breath. No chest pain. Exam/Review of Systems Vital Signs Vitals Vital Signs Date Time Temp Pulse Resp B/P Pulse Ox O2 Delivery O2 Flow Rate FiO2 12/5/17 07:47 97.9 84 18 143/72 97 09/05/17 20:06 21 09/04/17 00:49 Nasal Cannula 2.0 Intake and Output 09/05/17 09/05/17 09/06/17 15:00 23:00 07:00 Intake Total 100 ml 1270 ml 1070 ml Balance 100 ml 1270 ml 1070 ml Exam General: Well developed,adequately built, obese [place] female, not in any acute distress . HEENT: Normocephalic, Atraumatic, No laceration or hematoma; Eyes: PEERL, Conjunctiva clear, Anicteric sclera Neck: Supple without any lymphadenopathy, nontender, no JVD, no carotid bruits, trachea midline, no thyromegaly Cardiac: With left chest wall pacemaker. S1, S2 auscultated, paced rhythm, no mumurs or gallop Pulmonary: Mild wheezing mostly on right side. Diminished bibasilar. Normal respiratory effort. GI: Abdomen obese to inspection. Soft, non tender, non- distended, no masses, no rebound tenderness or guarding. Bowel sounds active on all four quadrants Genitourinary: Deferred Extremities: No cyanosis, clubbing, or edema. Pulses [2+] bilaterally. Full ROM on all four extremities. No focal weakness appreciated. Neurologic: Alert to person, place, time, and situation. Affect appropriate, intact sensation. Skin: Clean,dry, and intact. No ecchymosis, no rashes, or lesions Results Result Diagram: 09/06/17 0520 09/06/17 0520 Results 24 hrs Laboratory Tests Test 09/05/17 11:56 09/05/17 17:21 09/05/17 21:28 09/06/17 05:20 Bedside Glucose 226 H 215 295 H White Blood Count 14.0 H Red Blood Count 4.19 #L Hemoglobin 13.3 Hematocrit 37.6 # Mean Corpuscular Volume 89.7 Mean Corpuscular Hemoglobin 31.7 Mean Corpuscular Hemoglobin Concent 35.4 Red Cell Distribution Width 12.3 Platelet Count 327 Mean Platelet Volume 10.7 H Neutrophils % 80.2 H Lymphocytes % 13.4 L Monocytes % 4.7 Eosinophils % 0.0 Basophils % 0.2 Nucleated Red Blood Cells % 0.0 Neutrophils # 11.2 H Lymphocytes # 1.9 Monocytes # 0.7 Eosinophils # 0.0 Basophils # 0.0 Nucleated Red Blood Cells # 0.0 Sodium Level 140 Potassium Level 4.1 Chloride Level 102 Carbon Dioxide Level 27 Anion Gap 15 Blood Urea Nitrogen 27 H Creatinine 0.62 Glucose Level 220 Calcium Level 9.7 Magnesium Level 1.9 Test 09/06/17 06:27 09/06/17 08:10 Bedside Glucose 199 189 Medications Medications Current Medications Ondansetron HCl (Zofran Inj) 4 mg Q6H PRN IV NAUSEA AND/OR VOMITING; Start at 13:00 Acetaminophen (Tylenol Tab) 650 mg Q6H PRN PO PAIN LEVEL 1-3 OR FEVER; Start 08/31/17 at 13:00 Acetaminophen (Tylenol Supp) 650 mg Q6H PRN [place] PAIN LEVEL 1-3 OR FEVER; Start 08/31/17 at 13:00 Morphine Sulfate (morphine) 2 mg Q4H PRN IV SEVERE PAIN LEVEL 7-10 Last administered on 09/04/17 12:27; Admin Dose 2 MG; Start 08/31/17 at 13:00 Docusate Sodium (Colace) 100 mg Q12H PRN PO CONSTIPATION; Start 08/31/17 at 13 :00 Famotidine (Pepcid) 20 mg Q12 PO Last administered on 09/06/17 10:08; Admin Dose 20 MG; Start 08/31/17 at 21:00 Enoxaparin Sodium (Lovenox) 40 mg DAILY SC Last administered on 09/06/17 10:38 ; Admin Dose 40 MG; Start 09/01/17 at 09:00 Diagnostic Test (Pha) (Accu-Chek) 1 ea 02 XX Last administered on 09/05/17 02: 03; Admin Dose 1 EA; Start 09/01/17 at 02:00 Amlodipine Besylate (Norvasc) 10 mg DAILY PO Last administered on 09/06/17 10: 09; Admin Dose 10 MG; Start 09/01/17 at 09:00 Atorvastatin Calcium (Lipitor) 40 mg QHS PO Last administered on 09/05/17 21: 24; Admin Dose 40 MG; Start 08/31/17 at 21:00 Clopidogrel Bisulfate (plaVIX) 75 mg DAILY PO Last administered on 09/06/17 10 :06; Admin Dose 75 MG; Start 09/01/17 at 09:00 Fluoxetine HCl (Prozac) 10 mg DAILY PO Last administered on 09/06/17 10:09; Admin Dose 10 MG; Start 09/01/17 at 09:00 Ibuprofen (Motrin) 400 mg Q6 PO Last administered on 09/04/17 05:40; Admin Dose 400 MG; Start 08/31/17 at 13:00 Benzonatate (Tessalon) 100 mg TID PO Last administered on 09/06/17 10:05; Admin Dose 100 MG; Start 08/31/17 at 13:00 Miscellaneous Information 1 ea NOTE XX ; Start 08/31/17 at 13:00 Glucose (Glutose) 15 gm Q15M PRN PO DECREASED GLUCOSE; Start 08/31/17 at 13:00 Glucose (Glutose) 22.5 gm Q15M PRN PO DECREASED GLUCOSE; Start 08/31/17 at 13: 00 Dextrose (D50w Syringe) 25 ml Q15M PRN IV DECREASED GLUCOSE; Start 08/31/17 at 13:00 Dextrose (D50w Syringe) 50 ml Q15M PRN IV DECREASED GLUCOSE; Start 08/31/17 at 13:00 Glucagon (Glucagen) 1 mg Q15M PRN IM DECREASED GLUCOSE; Start 08/31/17 at 13: 00 Glucose 15 gm 15 gm Q15M PRN BUCCAL DECREASED GLUCOSE; Start 08/31/17 at 13:00 Sodium Chloride (NS) 1,000 ml @ 50 mls/hr Q20H IV Last administered on 16:20; Admin Dose 50 MLS/HR; Start 08/31/17 at 15:00 Guaifenesin/ Dextromethorphan (Robitussin Dm Liquid Cup) 10 ml Q6H PO Last administered on 09/06/17 06:56; Admin Dose 10 ML; Start 09/01/17 at 13:00 Methylprednisolone Sodium Succinate (Solu-Medrol) 40 mg Q8 IV Last administered on 09/06/17 06:28; Admin Dose 40 MG; Start 09/02/17 at 14:00 Tiotropium [place] (Spiriva) 1 inh DAILY INH Last administered on 09/05/17 08: 23; Admin Dose 1 INH; Start 09/03/17 at 13:00 Insulin Glargine (Lantus) 20 unit DAILY@08 SC Last administered on 09/06/17 08 :29; Admin Dose 20 UNIT; Start 09/05/17 at 08:00 Insulin Human NPH (Humulin N) 12 unit Q8 SC Last administered on 09/06/17 06: 34; Admin Dose 12 UNIT; Start 09/04/17 at 14:00 Acetylcysteine 1200 mg 1,200 mg BID PO Last administered on 09/06/17 10:05; Admin Dose 1,200 MG; Start 09/04/17 at 21:00; Stop 09/07/17 at 20:59 Levofloxacin/ Dextrose (Levaquin 500mg/ D5W 100 ml (Pmx)) 100 ml @ 100 mls/hr Q24H IVPB Last administered on 09/06/17 10:12; Admin Dose 100 MLS/HR; Start 09/05/17 at 09:30 Fluconazole (Diflucan) 100 mg DAILY PO Last administered on 09/05/17 09:44; Admin Dose 100 MG; Start 09/05/17 at 09:30; Stop 09/12/17 at 09:29 Salmeterol Xinafoate/ Fluticasone (Advair 250/50 Diskus) 1 inh BID INH Last administered on 09/05/17 21:25; Admin Dose 1 INH; Start 09/05/17 at 10:30 LINDA SANTIAGO NP Sep 06, 2017 11:15
[2017-09-06] MEDS: SOD CHLORIDE 0.9% 1,000 ML IV SCH (11:30)
[2017-09-06] MEDS: FLUCONAZOLE 100 MG TAB PO SCH (12:10)
[2017-09-06 20:00] VITALS: BP 126/67; RESP 20
[2017-09-06] MEDS: ATORVASTATIN 40 MG TAB PO SCH (21:22)
[2017-09-07] MEDS: GUAIFENESIN/DM 5ML CUP PO SCH ×4 (00:11→18:30)
[2017-09-07] MEDS: ALBUTEROL/IPRATROPIUM (NEB) 3 ML AMP HHN SCH ×6 (01:00→20:34)
[2017-09-07 02:00] VITALS: BP 134/81; RESP 20
[2017-09-07] MEDS: ACCU-CHEK XX SCH (02:00)
[2017-09-07] MEDS: IBUPROFEN 400 MG TAB PO SCH ×5 (06:00→23:24)
[2017-09-07] MEDS: SOD CHLORIDE 0.9% 1,000 ML IV SCH ×2 (07:00→17:00)
[2017-09-07] MEDS: ENOXAPARIN 40 MG/0.4 ML SYG SC SCH (08:07)
[2017-09-07] MEDS: INSULIN ASPART [NOVOLOG] 3 ML PEN SC SCH ×7 (08:07→20:32)
[2017-09-07] MEDS: INSULIN GLARGINE [LANtus] 3 ML PEN SC SCH (08:07)
[2017-09-07] MEDS: NPH, HUMAN INSULIN ISOPHANE 3ML VIAL SC SCH ×2 (08:07→20:33)
[2017-09-07 08:13] VITALS: BP 103/61; RESP 20
[2017-09-07] MEDS: FLUOXETINE 10 MG CAP PO SCH (08:38)
[2017-09-07] MEDS: METHYLPREDNISOLONE 40 MG INJ IV SCH ×2 (08:38→20:31)
[2017-09-07] MEDS: ACETYLCYSTEINE 600 MG CAP PO SCH (08:38)
[2017-09-07] MEDS: BENZONATATE 100 MG CAP PO SCH ×4 (08:38→20:05)
[2017-09-07] MEDS: CLOPIDOGREL 75 MG TAB PO SCH (08:38)
[2017-09-07] MEDS: FLUCONAZOLE 100 MG TAB PO SCH (08:38)
[2017-09-07] MEDS: FAMOTIDINE 20 MG TAB PO SCH ×2 (08:39→20:31)
[2017-09-07] MEDS: TIOTROPIUM 18 MCG CAPSULE INHA DEV INH SCH ×2 (08:39→09:00)
[2017-09-07] MEDS: AMLODIPINE 10 MG TAB PO SCH (08:39)
[2017-09-07] MEDS: SALMETEROL/FLUTICASONE 250/50 INHA INH SCH ×2 (08:39→20:31)
--- NOTE | 2017-09-07 09:59 | CONS ---
Date/Time of Note Date/Time of Note DATE: 09/07/17 TIME: 09:57 Assessment/Plan Assessment/Plan Chief Complaint/Hosp Course Pulmonary consultation dictated #[id number] Discontinue Rocephin, start cefepime 1 g every 12 hours. Start Solu-Medrol 40 mg every 8 hours. Patient will need to have a PET scan done on an outpatient basis for further evaluation of subcarinal mass. Problems: Additional Assessment/Plan Assessment and recommendations; 1. Patient admitted with right lower lobe pneumonia with discovery of 3.3 cm subcarinal mass on CT imaging of the chest. Significance of that is currently not known. 2. Significant improvement in clinical status with marked reduction in wheezing. Continue current treatment. Thoracic surgery consult is pending. Patient may need to have a mediastinoscopy done. Consultation Date/Type/Reason Admit Date/Time Aug 31, 2017 at 10:28 Initial Consult Date 09/02/17 Type of Consultation: Pulmonary 24 HR Interval Summary Free Text/Dictation Patient's condition is stable. Denies any shortness of breath, coughing, wheezing, sputum production. General exam; elderly woman, awake alert, currently in no distress. Exam/Review of Systems Vital Signs Vitals Vital Signs Date Time Temp Pulse Resp B/P Pulse Ox O2 Delivery O2 Flow Rate FiO2 09/07/17 08:13 97.7 86 20 103/61 96 09/07/17 07:49 21 09/04/17 00:49 Nasal Cannula 2.0 Intake and Output 09/06/17 09/06/17 09/07/17 15:00 23:00 07:00 Intake Total 100 ml 900 ml 840 ml Output Total 6 ml Balance 100 ml 894 ml 840 ml Exam HEENT exam; supple neck, no JVD. No lymphadenopathy. Midline trachea. No thyromegaly. Patient has fair dentition. No neck masses felt. Chest exam; clear to auscultation. S1-S2 audible, no murmurs. Regular rhythm. Abdomen exam; soft, nontender. No organomegaly. Bowel sounds audible. Extremity exam; no edema. WEB MASTER exam; no focal deficit. Results Result Diagram: 09/06/17 0520 09/06/17 0520 Results 24 hrs Laboratory Tests Test 09/06/17 12:15 09/06/17 17:09 09/06/17 21:24 09/07/17 07:59 Bedside Glucose 217 182 159 144 Medications Medications Current Medications Ondansetron HCl (Zofran Inj) 4 mg Q6H PRN IV NAUSEA AND/OR VOMITING; Start at 13:00 Acetaminophen (Tylenol Tab) 650 mg Q6H PRN PO PAIN LEVEL 1-3 OR FEVER; Start 08/31/17 at 13:00 Acetaminophen (Tylenol Supp) 650 mg Q6H PRN [place] PAIN LEVEL 1-3 OR FEVER; Start 08/31/17 at 13:00 Morphine Sulfate (morphine) 2 mg Q4H PRN IV SEVERE PAIN LEVEL 7-10 Last administered on 09/04/17 12:27; Admin Dose 2 MG; Start 08/31/17 at 13:00 Docusate Sodium (Colace) 100 mg Q12H PRN PO CONSTIPATION; Start 08/31/17 at 13 :00 Famotidine (Pepcid) 20 mg Q12 PO Last administered on 09/07/17 08:39; Admin Dose 20 MG; Start 08/31/17 at 21:00 Enoxaparin Sodium (Lovenox) 40 mg DAILY SC Last administered on 09/07/17 08:07 ; Admin Dose 40 MG; Start 09/01/17 at 09:00 Diagnostic Test (Pha) (Accu-Chek) 1 ea 02 XX Last administered on 09/05/17 02: 03; Admin Dose 1 EA; Start 09/01/17 at 02:00 Amlodipine Besylate (Norvasc) 10 mg DAILY PO Last administered on 09/07/17 08: 39; Admin Dose 10 MG; Start 09/01/17 at 09:00 Atorvastatin Calcium (Lipitor) 40 mg QHS PO Last administered on 09/06/17 21: 22; Admin Dose 40 MG; Start 08/31/17 at 21:00 Clopidogrel Bisulfate (plaVIX) 75 mg DAILY PO Last administered on 09/07/17 08 :38; Admin Dose 75 MG; Start 09/01/17 at 09:00 Fluoxetine HCl (Prozac) 10 mg DAILY PO Last administered on 09/07/17 08:38; Admin Dose 10 MG; Start 09/01/17 at 09:00 Ibuprofen (Motrin) 400 mg Q6 PO Last administered on 09/04/17 05:40; Admin Dose 400 MG; Start 08/31/17 at 13:00 Benzonatate (Tessalon) 100 mg TID PO Last administered on 09/07/17 08:38; Admin Dose 100 MG; Start 08/31/17 at 13:00 Miscellaneous Information 1 ea NOTE XX ; Start 08/31/17 at 13:00 Glucose (Glutose) 15 gm Q15M PRN PO DECREASED GLUCOSE; Start 08/31/17 at 13:00 Glucose (Glutose) 22.5 gm Q15M PRN PO DECREASED GLUCOSE; Start 08/31/17 at 13: 00 Dextrose (D50w Syringe) 25 ml Q15M PRN IV DECREASED GLUCOSE; Start 08/31/17 at 13:00 Dextrose (D50w Syringe) 50 ml Q15M PRN IV DECREASED GLUCOSE; Start 08/31/17 at 13:00 Glucagon (Glucagen) 1 mg Q15M PRN IM DECREASED GLUCOSE; Start 08/31/17 at 13: 00 Glucose 15 gm 15 gm Q15M PRN BUCCAL DECREASED GLUCOSE; Start 08/31/17 at 13:00 Sodium Chloride (NS) 1,000 ml @ 50 mls/hr Q20H IV Last administered on 11:30; Admin Dose 50 MLS/HR; Start 08/31/17 at 15:00 Guaifenesin/ Dextromethorphan (Robitussin Dm Liquid Cup) 10 ml Q6H PO Last administered on 09/07/17 07:16; Admin Dose 10 ML; Start 09/01/17 at 13:00 Tiotropium [place] (Spiriva) 1 inh DAILY INH Last administered on 09/07/17 08: 39; Admin Dose 1 INH; Start 09/03/17 at 13:00 Insulin Glargine (Lantus) 20 unit DAILY@08 SC Last administered on 09/07/17 08 :07; Admin Dose 20 UNIT; Start 09/05/17 at 08:00 Acetylcysteine 1200 mg 1,200 mg BID PO Last administered on 09/07/17 08:38; Admin Dose 1,200 MG; Start 09/04/17 at 21:00; Stop 09/07/17 at 20:59 Levofloxacin/ Dextrose (Levaquin 500mg/ D5W 100 ml (Pmx)) 100 ml @ 100 mls/hr Q24H IVPB Last administered on 09/06/17 10:12; Admin Dose 100 MLS/HR; Start 09/05/17 at 09:30 Fluconazole (Diflucan) 100 mg DAILY PO Last administered on 09/07/17 08:38; Admin Dose 100 MG; Start 09/05/17 at 09:30; Stop 09/12/17 at 09:29 Salmeterol Xinafoate/ Fluticasone (Advair 250/50 Diskus) 1 inh BID INH Last administered on 09/07/17 08:39; Admin Dose 1 INH; Start 09/05/17 at 10:30 Methylprednisolone Sodium Succinate (Solu-Medrol) 40 mg BID IV Last administered on 09/07/17 08:38; Admin Dose 40 MG; Start 09/06/17 at 21:00 Insulin Human NPH (Humulin N) 12 unit BID SC Last administered on 09/07/17 08: 07; Admin Dose 12 UNIT; Start 09/06/17 at 21:00 ANGEL LUIS YOU Sep 07, 2017 09:59
[2017-09-07] MEDS: LEVOFLOXACIN 500MG/D5W (PMX) 100 ML IVPB SCH (10:00)
--- NOTE | 2017-09-07 10:00 | PN ---
Date/Time of Note Date/Time of Note DATE: 09/07/17 TIME: 09:57 Assessment/Plan VTE Prophylaxis VTE Prophylaxis Intervention: LMWH Lines/Catheters IV C[facility]ter Type (from [facility]): Peripheral IV Urinary Cath still in place: No Assessment/Plan Chief Complaint/Hosp Course 66-year-old female with a past medical history of diabetes, hypertension, hypercholesteremia, pacemaker placed, presented to the emergency room for evaluation of 9 day duration of cough, subjective fevers and generalized weakness and malaise who was noted to have pneumonia with possible subcarinal mass. 1. Pneumonia, likely community-acquired.Sputum culture with Serratia Rubidaea/ Pascale albicans. Resolving. Status: Acute -Continue Levaquin Levaquin and short course fluconazole for pascale as pt is symptomatic. -Continue tapering down steroids -Continue with CASSIDY/ICH/Cough supplements PRN. 2. Status post sepsis secondary to #1. 3. 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 Unable to do an MRI evaluation secondary to pacemaker placed. --At this time, I am not sure whether this has anything to do with her current symptom. I am also not sure about the chronicity of this problem. -Pulmonary evaluation appreciated and CT surgery consult has been requested by pulmonary. We will follow-up with recommendations. -At this time, what it seems like patient is not opting for any aggressive management on this. However, we will have it discussed with our CT surgery team. 4. Type 2 diabetes. A1c 6.8. With stable glycemic trends. -Continue with Accu-Cheks/insulin sliding scale/pre-meal insulin and Lantus. Patient is also on NPH with Solu-Medrol. NPH should be discontinued as Solu- Medrol is tapered off. 5. Essential hypertension. -Continue home medications. 6. Hypercholesterolemia. -Continue statin. 7. Status post pacemaker. -Echocardiogram with preserved ejection fraction. 8. Mild pulmonary hypertension. Will monitor. Prophylaxis: Lovenox/Pepcid. Overall, patient with significant improvement in her symptoms. In regards to incidental finding of subcarinal mass, patient is hemodynamically stable and asymptomatic. Follow-up with CT recommendations. If no further inpatient intervention/mediastinoscopy required immediately, and patient can be monitored as outpatient, discharge planning in next [address] surgery follow-up. Patient was seen in collaboration with Dr. Palomo. Problems: Subjective 24 Hr Interval Summary Free Text/Dictation Patient with excellent improvement in breathing status. Currently she is not having any shortness of breath or wheezing. Exam/Review of Systems Vital Signs Vitals Vital Signs Date Time Temp Pulse Resp B/P Pulse Ox O2 Delivery O2 Flow Rate FiO2 09/07/17 08:13 97.7 86 20 103/61 96 09/07/17 07:49 21 09/04/17 00:49 Nasal Cannula 2.0 Intake and Output 09/06/17 09/06/17 09/07/17 15:00 23:00 07:00 Intake Total 100 ml 900 ml 840 ml Output Total 6 ml Balance 100 ml 894 ml 840 ml Exam General: Well developed,adequately built, obese [place] female, not in any acute distress . HEENT: Normocephalic, Atraumatic, No laceration or hematoma; Eyes: PEERL, Conjunctiva clear, Anicteric sclera Neck: Supple without any lymphadenopathy, nontender, no JVD, no carotid bruits, trachea midline, no thyromegaly Cardiac: With left chest wall pacemaker. S1, S2 auscultated, paced rhythm, no mumurs or gallop Pulmonary: Chest clear to auscultation bilaterally. Diminished bibasilar. Normal respiratory effort. GI: Abdomen obese to inspection. Soft, non tender, non- distended, no masses, no rebound tenderness or guarding. Bowel sounds active on all four quadrants Genitourinary: Deferred Extremities: No cyanosis, clubbing, or edema. Pulses [2+] bilaterally. Full ROM on all four extremities. No focal weakness appreciated. Neurologic: Alert to person, place, time, and situation. Affect appropriate, intact sensation. Skin: Clean,dry, and intact. No ecchymosis, no rashes, or lesions Results Result Diagram: 09/06/17 0509/06/17 0520 Results 24 hrs Laboratory Tests Test 09/06/17 12:15 09/06/17 17:09 09/06/17 21:24 09/07/17 07:59 Bedside Glucose 217 182 159 144 Medications Medications Current Medications Ondansetron HCl (Zofran Inj) 4 mg Q6H PRN IV NAUSEA AND/OR VOMITING; Start at 13:00 Acetaminophen (Tylenol Tab) 650 mg Q6H PRN PO PAIN LEVEL 1-3 OR FEVER; Start 08/31/17 at 13:00 Acetaminophen (Tylenol Supp) 650 mg Q6H PRN [place] PAIN LEVEL 1-3 OR FEVER; Start 08/31/17 at 13:00 Morphine Sulfate (morphine) 2 mg Q4H PRN IV SEVERE PAIN LEVEL 7-10 Last administered on 09/04/17 12:27; Admin Dose 2 MG; Start 08/31/17 at 13:00 Docusate Sodium (Colace) 100 mg Q12H PRN PO CONSTIPATION; Start 08/31/17 at 13 :00 Famotidine (Pepcid) 20 mg Q12 PO Last administered on 09/07/17 08:39; Admin Dose 20 MG; Start 08/31/17 at 21:00 Enoxaparin Sodium (Lovenox) 40 mg DAILY SC Last administered on 09/07/17 08:07 ; Admin Dose 40 MG; Start 09/01/17 at 09:00 Diagnostic Test (Pha) (Accu-Chek) 1 ea 02 XX Last administered on 09/05/17 02: 03; Admin Dose 1 EA; Start 09/01/17 at 02:00 Amlodipine Besylate (Norvasc) 10 mg DAILY PO Last administered on 09/07/17 08: 39; Admin Dose 10 MG; Start 09/01/17 at 09:00 Atorvastatin Calcium (Lipitor) 40 mg QHS PO Last administered on 09/06/17 21: 22; Admin Dose 40 MG; Start 08/31/17 at 21:00 Clopidogrel Bisulfate (plaVIX) 75 mg DAILY PO Last administered on 09/07/17 08 :38; Admin Dose 75 MG; Start 09/01/17 at 09:00 Fluoxetine HCl (Prozac) 10 mg DAILY PO Last administered on 09/07/17 08:38; Admin Dose 10 MG; Start 09/01/17 at 09:00 Ibuprofen (Motrin) 400 mg Q6 PO Last administered on 09/04/17 05:40; Admin Dose 400 MG; Start 08/31/17 at 13:00 Benzonatate (Tessalon) 100 mg TID PO Last administered on 09/07/17 08:38; Admin Dose 100 MG; Start 08/31/17 at 13:00 Miscellaneous Information 1 ea NOTE XX ; Start 08/31/17 at 13:00 Glucose (Glutose) 15 gm Q15M PRN PO DECREASED GLUCOSE; Start 08/31/17 at 13:00 Glucose (Glutose) 22.5 gm Q15M PRN PO DECREASED GLUCOSE; Start 08/31/17 at 13: 00 Dextrose (D50w Syringe) 25 ml Q15M PRN IV DECREASED GLUCOSE; Start 08/31/17 at 13:00 Dextrose (D50w Syringe) 50 ml Q15M PRN IV DECREASED GLUCOSE; Start 08/31/17 at 13:00 Glucagon (Glucagen) 1 mg Q15M PRN IM DECREASED GLUCOSE; Start 08/31/17 at 13: 00 Glucose 15 gm 15 gm Q15M PRN BUCCAL DECREASED GLUCOSE; Start 08/31/17 at 13:00 Sodium Chloride (NS) 1,000 ml @ 50 mls/hr Q20H IV Last administered on 11:30; Admin Dose 50 MLS/HR; Start 08/31/17 at 15:00 Guaifenesin/ Dextromethorphan (Robitussin Dm Liquid Cup) 10 ml Q6H PO Last administered on 09/07/17 07:16; Admin Dose 10 ML; Start 09/01/17 at 13:00 Tiotropium [place] (Spiriva) 1 inh DAILY INH Last administered on 09/07/17 08: 39; Admin Dose 1 INH; Start 09/03/17 at 13:00 Insulin Glargine (Lantus) 20 unit DAILY@08 SC Last administered on 09/07/17 08 :07; Admin Dose 20 UNIT; Start 09/05/17 at 08:00 Acetylcysteine 1200 mg 1,200 mg BID PO Last administered on 09/07/17 08:38; Admin Dose 1,200 MG; Start 09/04/17 at 21:00; Stop 09/07/17 at 20:59 Levofloxacin/ Dextrose (Levaquin 500mg/ D5W 100 ml (Pmx)) 100 ml @ 100 mls/hr Q24H IVPB Last administered on 09/06/17 10:12; Admin Dose 100 MLS/HR; Start 09/05/17 at 09:30 Fluconazole (Diflucan) 100 mg DAILY PO Last administered on 09/07/17 08:38; Admin Dose 100 MG; Start 09/05/17 at 09:30; Stop 09/12/17 at 09:29 Salmeterol Xinafoate/ Fluticasone (Advair 250/50 Diskus) 1 inh BID INH Last administered on 09/07/17 08:39; Admin Dose 1 INH; Start 09/05/17 at 10:30 Methylprednisolone Sodium Succinate (Solu-Medrol) 40 mg BID IV Last administered on 09/07/17 08:38; Admin Dose 40 MG; Start 09/06/17 at 21:00 Insulin Human NPH (Humulin N) 12 unit BID SC Last administered on 09/07/17 08: 07; Admin Dose 12 UNIT; Start 09/06/17 at 21:00 LINDA SANTIAGO NP Sep 07, 2017 10:00
[2017-09-07 13:18] VITALS: BP 136/67; RESP 20
[2017-09-07 14:45] LABS: BASOPHILS % 0.1 % (0.0-2.0); HEMATOCRIT 40.4 % (37.0-47.0); HEMOGLOBIN 14.2 g/dl (12.0-16.0); LYMPHOCYTES # 1.4 10^3/ul (0.8-2.9); LYMPHOCYTES % 8.4 % (15.0-51.0); MEAN CORPUSCULAR HEMOGLOBIN 31.6 pg (29.0-33.0); MEAN CORPUSCULAR HGB CONC 35.1 g/dl (32.0-37.0); MEAN CORPUSCULAR VOLUME 89.8 fl (82.0-101.0); MEAN PLATELET VOLUME 10.4 fl (7.4-10.4); MONOCYTE # 0.6 10^3/ul (0.3-0.9); MONOCYTES % 3.5 % (0.0-11.0); NEUTROPHIL # 14.7 10^3/ul (1.6-7.5); NEUTROPHILS % 86.8 % (39.0-77.0); PLATELET COUNT 400 10^3/UL (140-415); RED CELL DISTRIBUTION WIDTH 12.5 % (11.5-14.5); WHITE BLOOD COUNT 16.9 10^3/ul (4.8-10.8)
[2017-09-07 15:23] LABS: CALCIUM 9.3 mg/dl (8.4-10.2); CREATININE 0.85 mg/dl (0.44-1.00); MAGNESIUM 1.8 mg/dl (1.7-2.5); POTASSIUM 4.3 mmol/L (3.5-5.1)
[2017-09-07 20:00] VITALS: BP 150/67; RESP 20
[2017-09-07] MEDS: ATORVASTATIN 40 MG TAB PO SCH (20:31)
[2017-09-08] MEDS: GUAIFENESIN/DM 5ML CUP PO SCH ×2 (00:22→06:25)
[2017-09-08] MEDS: ALBUTEROL/IPRATROPIUM (NEB) 3 ML AMP HHN SCH ×3 (01:00→09:00)
[2017-09-08] MEDS: ACCU-CHEK XX SCH (01:14)
[2017-09-08 02:00] VITALS: BP 112/65; RESP 20
[2017-09-08] MEDS: SOD CHLORIDE 0.9% 1,000 ML IV SCH (02:17)
[2017-09-08] MEDS: IBUPROFEN 400 MG TAB PO SCH (05:14)
--- NOTE | 2017-09-08 06:43 | PN ---
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 Pt can be discharged and follow up with me if she wants to consider surgery. Thank you for the referral Exam/Review of Systems Vital Signs Vitals Vital Signs Date Time Temp Pulse Resp B/P Pulse Ox O2 Delivery O2 Flow Rate FiO2 09/08/17 02:00 97.9 77 20 112/65 96 09/07/17 20:35 21 Intake and Output 09/07/17 09/07/17 09/08/17 15:00 23:00 07:00 Intake Total 100 ml 980 ml 1100 ml Balance 100 ml 980 ml 1100 ml Results Result Diagram: 09/07/17 1433 09/07/17 1433 TIANA ARTHUR MD Sep 08, 2017 06:43
[2017-09-08 08:04] VITALS: BP 151/80; RESP 19
[2017-09-08] MEDS: METHYLPREDNISOLONE 40 MG INJ IV SCH (08:13)
[2017-09-08] MEDS: NPH, HUMAN INSULIN ISOPHANE 3ML VIAL SC SCH (08:26)
[2017-09-08] MEDS: INSULIN ASPART [NOVOLOG] 3 ML PEN SC SCH ×2 (08:27)
[2017-09-08] MEDS: INSULIN GLARGINE [LANtus] 3 ML PEN SC SCH (08:27)
[2017-09-08] MEDS: TIOTROPIUM 18 MCG CAPSULE INHA DEV INH SCH (09:00)
[2017-09-08] MEDS: BENZONATATE 100 MG CAP PO SCH (09:00)
[2017-09-08] MEDS: SALMETEROL/FLUTICASONE 250/50 INHA INH SCH (09:00)
[2017-09-08] MEDS: FLUOXETINE 10 MG CAP PO SCH (09:18)
[2017-09-08] MEDS: FAMOTIDINE 20 MG TAB PO SCH (09:18)
[2017-09-08] MEDS: CLOPIDOGREL 75 MG TAB PO SCH (09:19)
[2017-09-08] MEDS: FLUCONAZOLE 100 MG TAB PO SCH (09:19)
[2017-09-08] MEDS: AMLODIPINE 10 MG TAB PO SCH (09:19)
[2017-09-08] MEDS: ENOXAPARIN 40 MG/0.4 ML SYG SC SCH (09:31)
--- NOTE | 2017-09-08 09:40 | PDOCDIS ---
Discharge Instructions CONDITION Patient Condition: Stable HOME CARE INSTRUCTIONS: Special Diet: Carb Controlled FOLLOW UP/APPOINTMENTS Follow-up Plan We have recommended you follow-up with the cardiothoracic surgeon if you decided to consider surgery for your chest mass. [id number] [facility] [address] [place] [address] Office 1.Follow up with primary care physician in 1 week-We have also recommended patient to refer for a outpatient pulmonary function testing and PET scan done on an outpatient basis for further evaluation of subcarinal mass. If you don't have one please let someone know, we can give you resources that may help you pick one. You may also call your insurance company to assign one to you. Review your medication list with your nurse before leaving and if you need new prescriptions please let your nurse know. I may have made changes to your home medications or given you new prescriptions, please let your primary doctor know as well. Stay compliant with your medications and report any side effects to your PCP or pharmacist. Return to the ER if you have any concerns and cannot reach your doctors or call your insurance company, they usually have a nurse that can help you. 2. Call 911 or go to the nearest emergency room if experiencing loss of consciousness, dizziness, chest pain, shortness of breath, vomiting/abdominal pain, speech difficulties, motor weakness or any unusual symptoms. LINDA SANTIAGO NP Sep 08, 2017 09:40
[2017-09-08] MEDS ORDERED: MED4DP PO (09:50)
[2017-09-08] MEDS ORDERED: ALBU8.5H3 INH (09:50)
[2017-09-08] MEDS ORDERED: FLUC100T PO (09:50)
[2017-09-08] MEDS ORDERED: GLIP-95 PO (09:50)
[2017-09-08] MEDS ORDERED: MTF1000T PO (09:50)
[2017-09-08] MEDS ORDERED: LEVO500T10 PO (09:50)
[2017-09-08] MEDS ORDERED: UDROBDM PO (09:50)
--- NOTE | 2017-09-08 09:53 | DS ---
Date/Time of Note Date/Time of Note DATE: 09/08/17 TIME: 09:53 Discharge Summary Admission/Discharge Info Admit Date/Time Aug 31, 2017 at 10:28 Discharge Date/Time Discharge Diagnosis 1. Pneumonia, likely community-acquired.Sputum culture with Serratia Rubidaea/ Pascale albicans. Clinically improved. 2. Status post sepsis secondary to #1. 3. 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 Recommend outpatient CT surgery follow-up. . 4. Type 2 diabetes. A1c 6.8. 5. Essential hypertension. 6. Hypercholesterolemia. 7. Status post pacemaker. 8. Mild pulmonary hypertension. Patient Condition: Stable Consults , pulmonary DT.Julieta, CT surgery. Procedures 08/31/2017. Chest x-ray. IMPRESSION: Bilateral lower lobe subsegmental atelectasis, greater on the right. Pneumonia is not excluded. Correlate clinically. Left-sided dual lead pacemaker. 09/01/2017. CT chest without contrast. IMPRESSION: 1. Air space consolidation compatible with atelectasis and possibly infiltrate is seen within the right lower lobe both superiorly and inferiorly. This extends into the right hilum. Foci of discoid atelectasis are seen within the right middle lobe and the lower lobes. No effusion or pneumothorax is identified. 2. A 3.3 cm in short diameter subcarinal mass is identified, a 1.2 cm precarinal node is evident, several pretracheal nodes up to 6 mm in diameter are evident and AP window nodes up to 8 mm in diameter are noted. There is suspicion of right hilar adenopathy obscured by the pulmonary consolidation. 3. The heart is normal in size with atherosclerotic calcifications seen in the coronary arteries and aorta. A pacemaker in dual lead appear satisfactorily positioned. 4. Moderate diffuse degenerative spine changes are noted. 09/04/2017. Chest CT with contrast. IMPRESSION: 1. When compared to the previous noncontrast enhanced CT scan of the chest done 09/01/2017, there continues to be an old void well-circumscribed subcarinal lesion measuring 4.5 x 4.4 x 3.2 cm with density measurements ranging from 43-22 HU. There has been no appreciable enhancement of the lesion from the precontrast study and there is no appreciable wall. 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 A solid mass cannot absolutely be excluded. An MRI may be helpful to further evaluate as cysts typically MRI so or hyperintense to CSF while hypointense lesions would be more suspect. 2. A 1.1 cm in short diameter precarinal node is again evident but the pretracheal and AP window nodes no longer appear prominent and no right hilar adenopathy is identified. 3. A pacemaker and dual leads remain satisfactorily positioned and the cardiovascular structures appear unremarkable. 4. Subsegmental atelectasis and possibly streaky infiltrate is again seen within the right lower lobe and discoid atelectasis to a lesser extent is again seen in the left lower lobe with no pleural fluid accumulation or pneumothorax evident. 5. The visualized liver is enlarged and heterogeneously but diffusely fatty infiltrated. 6. There is a small accessory spleen seen inferior to the spleen. 7. Diffuse degenerative endplate changes are again seen to the visualized spine. Hospital Course 66-year-old female with a past medical history of diabetes, hypertension, hypercholesteremia, pacemaker placed, presented to the emergency room for evaluation of 9 day duration of cough, subjective fevers and generalized weakness and malaise who was noted to have pneumonia and sepsis. 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 Due to pacemaker placed, she was not a candidate for MRI evaluation. Sputum culture was positive for Serratia Rubidaea/Pascale albicans. She was treated with Levaquin and short course of fluconazole. Patient was also given CASSIDY/ICH/Cough supplements PRN. Patient continued to have wheezing for which she was also given steroid therapy. Sepsis resolved. She was continued on her outpatient regimen for underlying comorbid conditions. Patient responded to medical management. There was clinical and diagnostic evidence of improvement in pneumonia. She did not have any further shortness of breath or wheezing. She was able to tolerate ambulation. Patient was also evaluated by cardiothoracic surgery for incidental finding of Renal mass. 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 Patient was recommended to follow-up with CT surgery if patient wants to consider surgery. Patient verbalized understanding. At this time, patient is feeling back to baseline. She is able to tolerate diet and activities. There is no further respiratory distress or wheezing. She is medically stable for discharge with completion of antibiotics and Medrol Dosepak. Patient was also asked to find a primary care doctor that she can follow-up with. She was also recommended to have an outpatient PET evaluation and pulmonary function testing. Patient verbalized understanding. Disposition: Home. Approximately 60 minutes was spent in coordinating the discharge on this patient. Patient was seen in collaboration with . Home Meds Active Scripts Metformin* (Glucophage*) 1,000 Mg Tablet, 1000 MG PO WITH BREAKFAST DINNE, #60 TAB Prov:SANTIAGO,LINAD V. [employer]ER 09/08/17 Albuterol Sulfate* (Proair HFA*) 8.5 Gm Hfa.aer.ad, 2 PUFF INH Q4H Y for WHEEZING AND SOB, #1 INHALER Prov:SANTIAGO,LINDA V. [employer] 09/08/17 Methylprednisolone* (Medrol* DOSE PACK) 4 Mg/Dose-Pack Tab.ds.pk, 4 MG PO . DIRECTED, #1 PACKET Prov:SANTIAGO,LINDA V. [employer]PER[employer]ER 09/08/17 Glipizide* (Glipizide*) 10 Mg Tablet, 10 MG PO AC BREAKFAST, #30 TAB Prov:SANTIAGO,LINDA V. [employer]PER[employer]INEER 09/08/17 Guaifenesin-Dextromethorphan* (Robitussin* DM) 100MG/10MG/5ML Syrup, 10 ML PO Q6H Y for COUGH for 14 Days, #1 BOTTLE Prov:SANTIAGO,LINDA V. [employer]ER 09/08/17 Levofloxacin* (Levofloxacin*) 500 Mg Tablet, 500 MG PO DAILY for 5 Days, #5 TAB Prov:SANTIAGO,LINDA V. [employer]INEER 09/08/17 Fluconazole* (Diflucan*) 100 Mg Tablet, 100 MG PO DAILY for 3 Days, #3 TAB Prov:SANTIAGO,LINDA V. [employer]ER 09/08/17 Reported Medications Omeprazole* (Omeprazole*) 20 Mg Capsule., 20 MG PO DAILY, #30 CAP 08/31/17 Atorvastatin* (Atorvastatin*) 40 Mg Tablet, 40 MG PO QHS, #30 TAB 08/31/17 Clopidogrel Bisulfate (Clopidogrel) 75 Mg Tablet, 75 MG PO DAILY, #30 TAB 08/31/17 Fluoxetine Hcl* (Fluoxetine Hcl*) 10 Mg Capsule, 10 MG PO DAILY, CAP 08/31/17 Amlodipine Besylate* (Amlodipine Besylate*) 10 Mg Tablet, 10 MG PO DAILY, #30 TAB 08/31/17 Discontinued Reported Medications Metformin Hcl* (Metformin Hcl*) 500 Mg Tablet, 500 MG PO BID WITH MEALS, #90 TAB 08/31/17 Glipizide* (Glipizide*) 10 Mg Tablet, 10 MG PO BID, TAB 08/31/17 Follow-up Plan We have recommended you follow-up with the cardiothoracic surgeon if you decided to consider surgery for your chest mass. [id number] [facility] [address] [place] [address] Office 1.Follow up with primary care physician in 1 week-We have also recommended patient to refer for a outpatient pulmonary function testing and PET scan done on an outpatient basis for further evaluation of subcarinal mass. If you don't have one please let someone know, we can give you resources that may help you pick one. You may also call your insurance company to assign one to you. Review your medication list with your nurse before leaving and if you need new prescriptions please let your nurse know. I may have made changes to your home medications or given you new prescriptions, please let your primary doctor know as well. Stay compliant with your medications and report any side effects to your PCP or pharmacist. Return to the ER if you have any concerns and cannot reach your doctors or call your insurance company, they usually have a nurse that can help you. 2. Call 911 or go to the nearest emergency room if experiencing loss of consciousness, dizziness, chest pain, shortness of breath, vomiting/abdominal pain, speech difficulties, motor weakness or any unusual symptoms. Primary Care Provider Care Physician No Primary Pending Labs Laboratory Tests Test 09/07/17 12:16 09/07/17 14:33 09/07/17 17:16 09/07/17 20:30 Bedside Glucose 166mg/dL (70-220) 238mg/dL (70-220) 136mg/dL (70-220) White Blood Count 16.910^3/ul (4.8-10.8) Red Blood Count 4.5010^6/ul (4.20-5.40) Hemoglobin 14.2g/dl (12.0-16.0) Hematocrit 40.4% (37.0-47.0) Mean Corpuscular Volume 89.8fl (82.0-101.0) Mean Corpuscular Hemoglobin 31.6pg (29.0-33.0) Mean Corpuscular Hemoglobin Concent 35.1g/dl (32.0-37.0) Red Cell Distribution Width 12.5% (11.5-14.5) Platelet Count 15874^3/UL (140-415) Mean Platelet Volume 10.4fl (7.4-10.4) Neutrophils % 86.8% (39.0-77.0) Lymphocytes % 8.4% (15.0-51.0) Monocytes % 3.5% (0.0-11.0) Eosinophils % 0.0% (0.0-7.0) Basophils % 0.1% (0.0-2.0) Nucleated Red Blood Cells % 0.0/100WBC (0.0-0.0) Neutrophils # 14.710^3/ul (1.6-7.5) Lymphocytes # 1.410^3/ul (0.8-2.9) Monocytes # 0.610^3/ul (0.3-0.9) Eosinophils # 0.010^3/ul (0.0-0.5) Basophils # 0.010^3/ul (0.0-0.1) Nucleated Red Blood Cells # 0.010^3/ul (0.0-0.0) Sodium Level 139mmol/L (135-144) Potassium Level 4.3mmol/L (3.5-5.1) Chloride Level 99mmol/L (97-110) Carbon Dioxide Level 25mmol/L (21-31) Anion Gap 19 (8-16) Blood Urea Nitrogen 43mg/dl (7-20) Creatinine 0.85mg/dl (0.44-1.00) Glucose Level 210mg/dl (70-220) Calcium Level 9.3mg/dl (8.4-10.2) Magnesium Level 1.8mg/dl (1.7-2.5) Test 09/08/17 08:07 Bedside Glucose 142mg/dL (70-220) LINDA SANTIAGO NP Sep 08, 2017 09:53
--- NOTE | 2017-09-08 10:52 | CONS ---
Date/Time of Note Date/Time of Note DATE: 09/08/17 TIME: 10:51 Consult Date/Type/Reason Admit Date/Time Aug 31, 2017 at 10:28 Initial Consult Date 09/02/17 Type of Consultation: Pulmonary Subjective Patient remains comfortable this morning. No new events Objective Vital Signs Date Time Temp Pulse Resp B/P Pulse Ox O2 Delivery O2 Flow Rate FiO2 09/08/17 08:04 96.2 75 19 151/80 94 09/07/17 20:35 21 Intake and Output 09/07/17 09/07/17 09/08/17 14:59 22:59 06:59 Intake Total 100 ml 980 ml 1100 ml Balance 100 ml 980 ml 1100 ml Exam GENERAL: Persian lady comfortable at rest no acute distress VITAL SIGNS: per chart NECK: Supple. No JVD or lymphadenopathy. CARDIAC EXAM: S1, S2. No added sounds or murmurs. CHEST: clear bilaterally, No added sounds, rales or wheezes ABDOMEN: Soft, nontender. No guarding or rebound. EXTREMITIES: No cyanosis, clubbing or edema. NEUROLOGIC: Generalized weakness. Left facial droop. Results/Medications Result Diagram: 09/07/17 1433 09/07/17 1433 Results 24 hrs Laboratory Tests Test 09/07/17 12:16 09/07/17 14:33 09/07/17 17:16 09/07/17 20:30 Bedside Glucose 166 238 H 136 White Blood Count 16.9 #H Red Blood Count 4.50 Hemoglobin 14.2 Hematocrit 40.4 Mean Corpuscular Volume 89.8 Mean Corpuscular Hemoglobin 31.6 Mean Corpuscular Hemoglobin Concent 35.1 Red Cell Distribution Width 12.5 Platelet Count 400 # Mean Platelet Volume 10.4 Neutrophils % 86.8 H Lymphocytes % 8.4 L Monocytes % 3.5 Eosinophils % 0.0 Basophils % 0.1 Nucleated Red Blood Cells % 0.0 Neutrophils # 14.7 H Lymphocytes # 1.4 Monocytes # 0.6 Eosinophils # 0.0 Basophils # 0.0 Nucleated Red Blood Cells # 0.0 Sodium Level 139 Potassium Level 4.3 Chloride Level 99 Carbon Dioxide Level 25 Anion Gap 19 H Blood Urea Nitrogen 43 #H Creatinine 0.85 Glucose Level 210 Calcium Level 9.3 Magnesium Level 1.8 Test 09/08/17 08:07 Bedside Glucose 142 Medications Current Medications Ondansetron HCl (Zofran Inj) 4 mg Q6H PRN IV NAUSEA AND/OR VOMITING; Start at 13:00 Acetaminophen (Tylenol Tab) 650 mg Q6H PRN PO PAIN LEVEL 1-3 OR FEVER; Start 08/31/17 at 13:00 Acetaminophen (Tylenol Supp) 650 mg Q6H PRN [place] PAIN LEVEL 1-3 OR FEVER; Start 08/31/17 at 13:00 Morphine Sulfate (morphine) 2 mg Q4H PRN IV SEVERE PAIN LEVEL 7-10 Last administered on 09/04/17 12:27; Admin Dose 2 MG; Start 08/31/17 at 13:00 Docusate Sodium (Colace) 100 mg Q12H PRN PO CONSTIPATION; Start 08/31/17 at 13 :00 Famotidine (Pepcid) 20 mg Q12 PO Last administered on 09/08/17 09:18; Admin Dose 20 MG; Start 08/31/17 at 21:00 Enoxaparin Sodium (Lovenox) 40 mg DAILY SC Last administered on 09/08/17 09:31 ; Admin Dose 40 MG; Start 09/01/17 at 09:00 Diagnostic Test (Pha) (Accu-Chek) 1 ea 02 XX Last administered on 09/05/17 02: 03; Admin Dose 1 EA; Start 09/01/17 at 02:00 Amlodipine Besylate (Norvasc) 10 mg DAILY PO Last administered on 09/08/17 09: 19; Admin Dose 10 MG; Start 09/01/17 at 09:00 Atorvastatin Calcium (Lipitor) 40 mg QHS PO Last administered on 09/07/17 20: 31; Admin Dose 40 MG; Start 08/31/17 at 21:00 Clopidogrel Bisulfate (plaVIX) 75 mg DAILY PO Last administered on 09/08/17 09 :19; Admin Dose 75 MG; Start 09/01/17 at 09:00 Fluoxetine HCl (Prozac) 10 mg DAILY PO Last administered on 09/08/17 09:18; Admin Dose 10 MG; Start 09/01/17 at 09:00 Ibuprofen (Motrin) 400 mg Q6 PO Last administered on 09/04/17 05:40; Admin Dose 400 MG; Start 08/31/17 at 13:00 Benzonatate (Tessalon) 100 mg TID PO Last administered on 09/06/17 21:22; Admin Dose 100 MG; Start 08/31/17 at 13:00 Miscellaneous Information 1 ea NOTE XX ; Start 08/31/17 at 13:00 Glucose (Glutose) 15 gm Q15M PRN PO DECREASED GLUCOSE; Start 08/31/17 at 13:00 Glucose (Glutose) 22.5 gm Q15M PRN PO DECREASED GLUCOSE; Start 08/31/17 at 13: 00 Dextrose (D50w Syringe) 25 ml Q15M PRN IV DECREASED GLUCOSE; Start 08/31/17 at 13:00 Dextrose (D50w Syringe) 50 ml Q15M PRN IV DECREASED GLUCOSE; Start 08/31/17 at 13:00 Glucagon (Glucagen) 1 mg Q15M PRN IM DECREASED GLUCOSE; Start 08/31/17 at 13: 00 Glucose 15 gm 15 gm Q15M PRN BUCCAL DECREASED GLUCOSE; Start 08/31/17 at 13:00 Sodium Chloride (NS) 1,000 ml @ 50 mls/hr Q20H IV Last administered on 17:00; Admin Dose 50 MLS/HR; Start 08/31/17 at 15:00 Guaifenesin/ Dextromethorphan (Robitussin Dm Liquid Cup) 10 ml Q6H PO Last administered on 09/08/17 06:25; Admin Dose 10 ML; Start 09/01/17 at 13:00 Tiotropium [place] (Spiriva) 1 inh DAILY INH Last administered on 09/05/17 08: 23; Admin Dose 1 INH; Start 09/03/17 at 13:00 Insulin Glargine 20 unit 20 unit DAILY@08 SC Last administered on 09/08/17 08: 27; Admin Dose 20 UNIT; Start 09/05/17 at 08:00 Levofloxacin/ Dextrose (Levaquin 500mg/ D5W 100 ml (Pmx)) 100 ml @ 100 mls/hr Q24H IVPB Last administered on 09/07/17 10:00; Admin Dose 100 MLS/HR; Start 09/05/17 at 09:30 Fluconazole (Diflucan) 100 mg DAILY PO Last administered on 09/08/17 09:19; Admin Dose 100 MG; Start 09/05/17 at 09:30; Stop 09/12/17 at 09:29 Salmeterol Xinafoate/ Fluticasone (Advair 250/50 Diskus) 1 inh BID INH Last administered on 09/07/17 20:31; Admin Dose 1 INH; Start 09/05/17 at 10:30 Methylprednisolone Sodium Succinate (Solu-Medrol) 40 mg BID IV Last administered on 09/08/17 08:13; Admin Dose 40 MG; Start 09/06/17 at 21:00 Insulin Human NPH (Humulin N) 12 unit BID SC Last administered on 09/08/17 08: 26; Admin Dose 12 UNIT; Start 09/06/17 at 21:00 Assessment/Plan Chief Complaint/Hosp Course IMP: 1. RLL CAP 2. 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 History of pacemaker placement 4. History of CVA RECS: 1. Continue abx and short course CS 2. MRI requested. We will need cardiothoracic surgery consult. Dr Rendon contacted. 3. Pulmonary function testing Outpatient PET scan and follow-up with primary care physician. Follow-up with thoracic surgery. Problems: LI CAMACHO MD, [facility] Sep 08, 2017 10:52
== END 2017-09-08 12:10 | disposition home or self-care (01) | DRG 871 ==
LOC: E/R 08:19 → MS2 10:28
PROVIDERS: ADMIT Family Medicine; ATTEND Family Medicine
DX: A41.50 Gram-negative sepsis, unspecified (principal); J15.6 Pneumonia due to other Gram-negative bacteria; B37.1 Pulmonary candidiasis; J98.59 Other diseases of mediastinum, not elsewhere classified; E11.69 Type 2 diabetes mellitus with other specified complication; A41.89 Other specified sepsis; R65.20 Severe sepsis without septic shock; I27.20 Pulmonary hypertension, unspecified; I10 Essential (primary) hypertension; Z95.0 Presence of cardiac pacemaker; E78.5 Hyperlipidemia, unspecified; E66.9 Obesity, unspecified; Z68.34 Body mass index [BMI] 34.0-34.9, adult; E78.00 Pure hypercholesterolemia, unspecified; R59.1 Generalized enlarged lymph nodes
CPT/HCPCS: 36415; 71010; 71250; 71260; 80048; 80053; 80061; 82550; 82553; 82962; 83036; 83605; 83735; 83880; 84100; 84443; 84484; 85025; 85610; 85730; 87040; 87070; 87400; 93005; 93306; 94060; 94640; 94664; 94726; 94729; 96374; 96375; J0456; J0692; J0696; J1650; J1815; J1956; J2270; J2405; J2920; J2930; J7030; Q9967

== ENCOUNTER 2019-05-22 18:13 | Inpatient (IN) | payer MEDICAID ==
[~2019-05-22] VITALS: Ht 152.4 cm; Wt 82.3 kg
[~2019-05-22 18:13] MED LIST: ALBU8.5H8 INH; AMLO-147 PO; ASPI-817 PO; ATOR40TA68 PO; CARAS PO; CLOP75TA19 PO; CLOP75TA27 PO; FLUC100T PO; FLUO10CA17 PO; FLUO10TA PO; GABA100C14 PO; GLIP10TA14 PO; GUAI5SYR2 PO; LEVO500T10 PO; MED4DP PO; METF100010 PO; MTF1000T PO; OMEP20CA16 PO; PANT40TA4 PO
[2019-05-22 18:23] VITALS: Ht 152.4 cm; Wt 82.3 kg
[2019-05-22] MEDS ORDERED: KETOROLAC 15 MG INJ IV STA (18:41)
[2019-05-22] MEDS ORDERED: DIAZEPAM 10 MG/2 ML SYG IV ONE (19:00)
[2019-05-22] MEDS ORDERED: CEFTRIAXONE 1 GM/50 ML (PMX) 50 ML IVPB STA (19:34)
[2019-05-22] MEDS ORDERED: SOD CHLORIDE 0.9% 1,000 ML IV STA (19:34)
[2019-05-22] MEDS ORDERED: HYDROmorphONE 0.5 MG/0.5 ML SYG IV STA (21:14)
[2019-05-22] MEDS ORDERED: IOHEXOL 100 ML ONE (22:06)
[2019-05-22] MEDS ORDERED: SOD CHLORIDE 0.9% 100 ML ONE (22:06)
[2019-05-22] MEDS ORDERED: ACETAMINOPHEN 325 MG TAB PO PRN (22:30)
[2019-05-22] MEDS ORDERED: ONDANSETRON 4 MG INJ IV PRN ×2 (22:30→23:00)
[2019-05-22] MEDS ORDERED: DOCUSATE SODIUM 100 MG CAP PO PRN (23:00)
[2019-05-22] MEDS ORDERED: NITROGLYCERIN (SL) 0.4 MG TAB SL PRN (23:00)
[2019-05-22] MEDS ORDERED: NACL 0.9% 3 ML SYG IV SCH (23:00)
[2019-05-22] MEDS ORDERED: morphine 2 MG INJ IV PRN (23:00)
[2019-05-22] MEDS ORDERED: BISACODYL (EC) 5 MG TAB PO PRN (23:00)
[2019-05-22] MEDS ORDERED: METOCLOPRAMIDE 10 MG INJ IV ONE (23:30)
[2019-05-23] VITALS (7 sets, daily range): BP systolic 106–141; BP diastolic 60–82; PULSE 68–99; RESP 17–20
[2019-05-23] MEDS: HYDROmorphONE 1 MG/ML SYG IV PRN ×2 (02:04→18:32)
[2019-05-23] MEDS ORDERED: CYCLOBENZAPRINE 10 MG TAB PO ONE (02:30)
[2019-05-23] MEDS ORDERED: ENOXAPARIN 80 MG/0.8 ML SYG SC SCH (02:30)
[2019-05-23] MEDS ORDERED: PANTOPRAZOLE (EC) 40 MG TAB PO SCH (06:00)
[2019-05-23] MEDS: CIPROFLOXACIN 250 MG TAB PO SCH ×2 (06:32→18:31)
[2019-05-23] MEDS ORDERED: MAGNESIUM SULFATE 2 GM/50 ML 50 ML IVPB ONE ×2 (08:00→12:30)
[2019-05-23] MEDS: FLUOXETINE 10 MG CAP PO SCH (08:34)
[2019-05-23] MEDS: ASPIRIN (EC) 81 MG TAB PO SCH (08:35)
[2019-05-23] MEDS: AMLODIPINE 10 MG TAB PO SCH (08:35)
[2019-05-23] MEDS: CLOPIDOGREL 75 MG TAB PO SCH (08:35)
[2019-05-23] MEDS ORDERED: ENOXAPARIN 40 MG/0.4 ML SYG SC SCH (09:00)
[2019-05-23] MEDS ORDERED: IOHEXOL 100 ML ONE (09:25)
[2019-05-23] MEDS ORDERED: SOD CHLORIDE 0.9% 100 ML ONE (09:25)
[2019-05-23] MEDS: SUCRALFATE (100 MG/ML) 10ML CUP PO SCH ×2 (18:31→21:01)
[2019-05-23] MEDS ORDERED: ATORVASTATIN 40 MG TAB PO SCH (21:00)
[2019-05-23] MEDS: PANTOPRAZOLE (EC) 40 MG TAB PO SCH (21:01)
[2019-05-23] MEDS: ACETAMINOPHEN 325 MG TAB PO PRN (21:21)
[2019-05-24] VITALS: BP 111/55; PULSE 92; RESP 17
[2019-05-24] MEDS: HYDROmorphONE 1 MG/ML SYG IV PRN ×3 (03:51→14:27)
[2019-05-24 04:43] VITALS: BP 115/59; PULSE 89; RESP 17
[2019-05-24] MEDS: CIPROFLOXACIN 250 MG TAB PO SCH ×2 (05:55→17:34)
[2019-05-24 07:35] VITALS: BP 119/69; PULSE 80; RESP 18
[2019-05-24] MEDS: ASPIRIN (EC) 81 MG TAB PO SCH (08:10)
[2019-05-24] MEDS: FLUOXETINE 10 MG CAP PO SCH (08:10)
[2019-05-24] MEDS: SUCRALFATE (100 MG/ML) 10ML CUP PO SCH ×4 (08:10→20:41)
[2019-05-24] MEDS: ENOXAPARIN 40 MG/0.4 ML SYG SC SCH (08:10)
[2019-05-24] MEDS: AMLODIPINE 10 MG TAB PO SCH (08:11)
[2019-05-24] MEDS: CLOPIDOGREL 75 MG TAB PO SCH (08:11)
[2019-05-24] MEDS: PANTOPRAZOLE (EC) 40 MG TAB PO SCH ×2 (08:11→20:42)
[2019-05-24 11:12] VITALS: BP 128/68; PULSE 88; RESP 20
[2019-05-24 15:27] VITALS: BP 140/79; PULSE 88; RESP 20
[2019-05-24] MEDS ORDERED: BARIUM SULF 2% 450 ML BTL (BERRY SMOOTHIE) PO ONE (16:30)
[2019-05-24] MEDS ORDERED: IOHEXOL 300MG/ML 150 ML BTL ONE (16:39)
[2019-05-24] MEDS ORDERED: SOD CHLORIDE 0.9% 100 ML ONE (16:39)
[2019-05-24] MEDS: METOCLOPRAMIDE 10 MG INJ IV SCH (17:34)
[2019-05-24 20:53] VITALS: BP 123/66; PULSE 99; RESP 18
[2019-05-25] VITALS (7 sets, daily range): BP systolic 111–140; BP diastolic 55–80; PULSE 72–107; RESP 18–20
[2019-05-25] MEDS: METOCLOPRAMIDE 10 MG INJ IV SCH ×4 (00:29→18:00)
[2019-05-25] MEDS: CIPROFLOXACIN 250 MG TAB PO SCH (05:20)
[2019-05-25] MEDS: POLYETHYLENE GLYCOL 17 GM PACKET PO SCH (08:18)
[2019-05-25] MEDS: FLUOXETINE 10 MG CAP PO SCH (08:19)
[2019-05-25] MEDS: CLOPIDOGREL 75 MG TAB PO SCH (08:19)
[2019-05-25] MEDS: SUCRALFATE (100 MG/ML) 10ML CUP PO SCH ×4 (08:19→19:58)
[2019-05-25] MEDS: AMLODIPINE 10 MG TAB PO SCH (08:19)
[2019-05-25] MEDS: PANTOPRAZOLE (EC) 40 MG TAB PO SCH ×2 (08:19→19:58)
[2019-05-25] MEDS: ASPIRIN (EC) 81 MG TAB PO SCH (08:19)
[2019-05-25] MEDS: ENOXAPARIN 40 MG/0.4 ML SYG SC SCH (09:00)
[2019-05-25] MEDS: HYDROmorphONE 1 MG/ML SYG IV PRN (13:43)
[2019-05-25] MEDS: metFORMIN 500 MG TAB PO SCH (18:19)
[2019-05-25] MEDS: LORAZEPAM 2 MG INJ IV PRN (22:06)
[2019-05-26] VITALS (7 sets, daily range): BP systolic 116–140; BP diastolic 61–79; PULSE 90–108; RESP 16–20
[2019-05-26] MEDS: ASPIRIN (EC) 81 MG TAB PO SCH (09:14)
[2019-05-26] MEDS: CLOPIDOGREL 75 MG TAB PO SCH (09:14)
[2019-05-26] MEDS: PANTOPRAZOLE (EC) 40 MG TAB PO SCH ×2 (09:16→20:29)
[2019-05-26] MEDS: FLUOXETINE 10 MG CAP PO SCH (09:16)
[2019-05-26] MEDS: POLYETHYLENE GLYCOL 17 GM PACKET PO SCH (09:16)
[2019-05-26] MEDS: ENOXAPARIN 40 MG/0.4 ML SYG SC SCH (09:26)
[2019-05-26] MEDS: AMLODIPINE 10 MG TAB PO SCH (09:27)
[2019-05-26] MEDS: metFORMIN 500 MG TAB PO SCH ×2 (10:47→17:37)
[2019-05-26] MEDS: SUCRALFATE (100 MG/ML) 10ML CUP PO SCH ×5 (10:48→20:29)
[2019-05-26] MEDS: HYDROmorphONE 1 MG/ML SYG IV PRN ×2 (10:53→16:22)
[2019-05-26] MEDS: ACETAMINOPHEN 325 MG TAB PO PRN (20:29)
[2019-05-27 02:31] VITALS: BP 132/79; PULSE 90; RESP 19
[2019-05-27 07:44] VITALS: BP 143/82; PULSE 91; RESP 17
[2019-05-27] MEDS: CLOPIDOGREL 75 MG TAB PO SCH (08:52)
[2019-05-27] MEDS: ASPIRIN (EC) 81 MG TAB PO SCH (08:52)
[2019-05-27] MEDS: FLUOXETINE 10 MG CAP PO SCH (08:52)
[2019-05-27] MEDS: PANTOPRAZOLE (EC) 40 MG TAB PO SCH ×2 (08:53→21:09)
[2019-05-27] MEDS: AMLODIPINE 10 MG TAB PO SCH (08:53)
[2019-05-27] MEDS: SUCRALFATE (100 MG/ML) 10ML CUP PO SCH ×6 (08:55→21:09)
[2019-05-27] MEDS: metFORMIN 500 MG TAB PO SCH ×4 (08:57→17:37)
[2019-05-27] MEDS: ENOXAPARIN 40 MG/0.4 ML SYG SC SCH (08:58)
[2019-05-27] MEDS: POLYETHYLENE GLYCOL 17 GM PACKET PO SCH (08:59)
[2019-05-27 14:06] VITALS: BP 125/57; PULSE 91; RESP 17
[2019-05-27] MEDS: HYOSCYAMINE 0.125 MG SUBL TAB PO SCH ×3 (17:34→21:11)
[2019-05-27 21:03] VITALS: BP 134/74; PULSE 96; RESP 18
[2019-05-27] MEDS: ACETAMINOPHEN 325 MG TAB PO PRN (21:09)
[2019-05-27] MEDS: LORAZEPAM 2 MG INJ IV PRN (23:03)
[2019-05-28] VITALS (11 sets, daily range): BP systolic 96–146; BP diastolic 62–81; PULSE 70–117; RESP 16–38
[2019-05-28] MEDS: HYOSCYAMINE 0.125 MG SUBL TAB PO SCH ×3 (05:33→21:30)
[2019-05-28] MEDS: metFORMIN 500 MG TAB PO SCH ×2 (08:00→18:10)
[2019-05-28] MEDS: CLOPIDOGREL 75 MG TAB PO SCH (08:45)
[2019-05-28] MEDS: SUCRALFATE (100 MG/ML) 10ML CUP PO SCH ×5 (08:45→20:38)
[2019-05-28] MEDS: ASPIRIN (EC) 81 MG TAB PO SCH (08:46)
[2019-05-28] MEDS: FLUOXETINE 10 MG CAP PO SCH (08:46)
[2019-05-28] MEDS: PANTOPRAZOLE (EC) 40 MG TAB PO SCH ×2 (08:46→20:37)
[2019-05-28] MEDS: AMLODIPINE 10 MG TAB PO SCH (08:46)
[2019-05-28] MEDS: ENOXAPARIN 40 MG/0.4 ML SYG SC SCH (08:47)
[2019-05-28] MEDS: POLYETHYLENE GLYCOL 17 GM PACKET PO SCH (08:47)
[2019-05-28] MEDS: HYDROmorphONE 1 MG/ML SYG IV PRN ×2 (08:54→21:31)
[2019-05-28] MEDS: ACETAMINOPHEN 325 MG TAB PO PRN (16:55)
[2019-05-28 19:12] LABS: VARICELLA-ZOSTER VIRUS AB IgM 0.35
[2019-05-29 01:50] VITALS: BP 124/60; PULSE 84; RESP 18
[2019-05-29] MEDS: HYOSCYAMINE 0.125 MG SUBL TAB PO SCH ×3 (05:36→20:43)
[2019-05-29 07:55] VITALS: BP 99/57; PULSE 84; RESP 18
[2019-05-29] MEDS: CLOPIDOGREL 75 MG TAB PO SCH (08:56)
[2019-05-29] MEDS: ASPIRIN (EC) 81 MG TAB PO SCH (08:56)
[2019-05-29] MEDS: FLUOXETINE 10 MG CAP PO SCH (08:56)
[2019-05-29] MEDS: metFORMIN 500 MG TAB PO SCH ×2 (08:56→17:30)
[2019-05-29] MEDS: HYDROmorphONE 1 MG/ML SYG IV PRN (08:57)
[2019-05-29] MEDS: PANTOPRAZOLE (EC) 40 MG TAB PO SCH ×2 (08:57→20:43)
[2019-05-29] MEDS: ENOXAPARIN 40 MG/0.4 ML SYG SC SCH (08:58)
[2019-05-29] MEDS: SUCRALFATE (100 MG/ML) 10ML CUP PO SCH ×4 (08:59→20:43)
[2019-05-29] MEDS: POLYETHYLENE GLYCOL 17 GM PACKET PO SCH (09:00)
[2019-05-29] MEDS: AMLODIPINE 10 MG TAB PO SCH (09:00)
[2019-05-29] MEDS: GABAPENTIN 100 MG CAP PO SCH ×2 (13:59→20:43)
[2019-05-29 14:20] VITALS: BP 131/78; PULSE 96; RESP 18
[2019-05-29 20:37] VITALS: BP 128/61; PULSE 74; RESP 18
[2019-05-29] MEDS: ACETAMINOPHEN 1000MG/100ML IV 100 ML IVPB SCH (20:43)
[2019-05-30 01:22] VITALS: BP 100/51; PULSE 77; RESP 20
[2019-05-30] MEDS: ACETAMINOPHEN 1000MG/100ML IV 100 ML IVPB SCH ×2 (02:55→08:57)
[2019-05-30] MEDS: HYOSCYAMINE 0.125 MG SUBL TAB PO SCH (06:22)
[2019-05-30 07:58] VITALS: BP 126/75; PULSE 68; RESP 16
[2019-05-30] MEDS: metFORMIN 500 MG TAB PO SCH (08:39)
[2019-05-30] MEDS: FLUOXETINE 10 MG CAP PO SCH (08:40)
[2019-05-30] MEDS: ASPIRIN (EC) 81 MG TAB PO SCH (08:40)
[2019-05-30] MEDS: AMLODIPINE 10 MG TAB PO SCH (08:40)
[2019-05-30] MEDS: CLOPIDOGREL 75 MG TAB PO SCH (08:40)
[2019-05-30] MEDS: PANTOPRAZOLE (EC) 40 MG TAB PO SCH (08:40)
[2019-05-30] MEDS: GABAPENTIN 100 MG CAP PO SCH (08:40)
[2019-05-30] MEDS: ENOXAPARIN 40 MG/0.4 ML SYG SC SCH (08:55)
[2019-05-30] MEDS: SUCRALFATE (100 MG/ML) 10ML CUP PO SCH (08:58)
[2019-05-30] MEDS: POLYETHYLENE GLYCOL 17 GM PACKET PO SCH (08:59)
== END 2019-05-30 13:40 | disposition home or self-care (01) | DRG 313 ==
LOC: E/R 18:13 → TEL 22:20 → 2NE 05-26 15:35
PROVIDERS: ADMIT Family Medicine; ATTEND Family Medicine
PROC: 0DB68ZX Excision of Stomach, Via Natural or Artificial Opening Endoscopic, Diagnostic (ICD-10-PCS; principal; 2019-05-28 12:30)
DX: R07.9 Chest pain, unspecified (principal); N39.0 Urinary tract infection, site not specified; R10.11 Right upper quadrant pain; E11.8 Type 2 diabetes mellitus with unspecified complications; I10 Essential (primary) hypertension; E66.9 Obesity, unspecified; Z68.35 Body mass index [BMI] 35.0-35.9, adult; E78.5 Hyperlipidemia, unspecified; I27.20 Pulmonary hypertension, unspecified; K44.9 Diaphragmatic hernia without obstruction or gangrene; Z95.0 Presence of cardiac pacemaker; R00.2 Palpitations; R29.810 Facial weakness; M54.2 Cervicalgia; K80.20 Calculus of gallbladder without cholecystitis without obstruction; K27.9 Peptic ulcer, site unspecified, unspecified as acute or chronic, without hemorrhage or perforation; R51 Headache; I07.1 Rheumatic tricuspid insufficiency
CPT/HCPCS: 36415; 70496; 70498; 71045; 71275; 72125; 72128; 74018; 74177; 76705; 78226; 80048; 80053; 80061; 80076; 81001; 82550; 82553; 82962; 83036; 83690; 83735; 83880; 84100; 84443; 84484; 85025; 85378; 85651; 86140; 87086; 88305; 88312; 93005; 93306; 93970; 96365; 96366; 96375; 97110; 97116; 97162; 97530; A9537; J0131; J0696; J1170; J1650; J1885; J2060; J2270; J2765; J3360; J3475; J7030; Q9967